=== PATIENT | female | born 1940 | race Caucasian/White ===

== ENCOUNTER 2017-08-09 14:14 | Inpatient (IN) ==
[2017-08-09] MEDS ORDERED: Ipratropium/Albuterol Neb 3 ML IH ONE ×2 (14:21→17:04)
[2017-08-09] MEDS ORDERED: methylPREDNISolone 125 MG/2 ML VIAL IVP ONE (14:21)
--- NOTE | 2017-08-09 14:24 | Emergency Department Note ---
Disposition Clinical Impression: Acute exacerbation of chronic obstructive airways disease Volume overload Qualifiers: Hypervolemia type: unspecified Qualified Code(s): E87.70 - Fluid overload, unspecified Disposition: Admitted As Inpatient Condition: Fair Forms: ED Satisfaction Letter Time of Disposition: 16:52 SOB HPI - General Chief Complaint: ED Shortness of Breath/Dyspnea Stated Complaint: steph Time Seen by Provider: 08/09/17 14:18 Source: patient, EMS Mode of arrival: EMS Limitations: no limitations Nursing Notes Reviewed: Yes Vital Signs Reviewed: Yes - History of Present Illness 76-year-old with a history of COPD comes in with increasing shortness of breath. Patient also had increased lower extremity edema. She denies a history of CHF. Pulse ox was 89% on 2 L at home per squad. They turned her up to 3 L and on arrival here she is in the low 90s. And has significant bilateral lower extremity edema. Pt Subjective Complaint: shortness of breath Onset (ago): day(s) (Several) Severity: moderate Consistency/Duration: constant Improves with: nothing Worsens with: exertion Known history of: COPD Associated symptoms: Reports: fever. Denies: cough Treatment prior to arrival: none Cough present: Yes Cough Description: Involuntary Cough Frequency: Intermittent - Related Data Allergies Allergy/AdvReac Type Severity Reaction Status Date / Time No Known Allergies Allergy Verified 08/09/17 14:51 Constitutional: Denies: fever, chills, weakness, weight change Eyes: Denies: eye pain, eye discharge, vision change ENT ED: Denies: ear pain, throat pain, dental pain, hearing loss, epistaxis, congestion, dysphagia Cardiovascular: Denies: chest pain, palpitations, dyspnea on exertion, edema, syncope Respiratory: Reports: dyspnea, wheezes. Denies: cough, hemoptysis, stridor Gastrointestinal: Denies: abdominal pain, nausea, vomiting, diarrhea, constipation, hematemesis, melena, hematochezia Genitourinary: Denies: dysuria, frequency, hematuria, discharge Musculoskeletal: Denies: back pain, neck pain, arthralgia, myalgia Integumentary: Denies: rash, abrasion, lesions Neurological: Denies: headache, weakness, numbness, paresthesias, confusion, abnormal gait, vertigo Psychiatric: Denies: anxiety, depression, suicidal thoughts, homicidal thoughts , auditory hallucinations, visual hallucinations Endocrine: Denies: fatigue Hematological/Lymphatic: Denies: easy bleeding, easy bruising Allergic/Immunologic: Denies: facial swelling, urticaria Physical Exam - General Limitations: no limitations General appearance: alert, in no apparent distress - Head Head exam: atraumatic, normocephalic, normal inspection - Eye Eye exam: Present: normal appearance, PERRL, EOMI - ENT ENT exam: normal exam, normal oropharynx, mucous membranes moist - Neck Neck exam: Present: normal inspection, full ROM, trachea midline - Chest Chest inspection: Present: normal inspection, symmetric chest wall rise - Respiratory Respiratory exam: Present: accessory muscle use, prolonged expiratory phase - Cardiovascular Cardiovascular exam: Present: regular rate, normal rhythm, normal heart sounds - Abdominal Exam Abdominal exam: Present: soft, Non-Tender. Absent: tenderness, distention, guarding, rebound, rigidity - Extremities Exam Extremities exam: Present: pedal edema - Expanded Lower Extremity Exam Neurovascular/Tendon exam: Absent: motor deficit, sensory deficit, tendon deficit Gait: observed and normal - Back Exam Back exam: Present: normal inspection, full ROM. Absent: tenderness - Neurological Exam Neurological exam: Present: alert, oriented X3 - Psychiatric Psychiatric exam: Present: normal affect, normal mood - Skin Skin exam: Present: warm, dry, intact, normal color Course - Reevaluation(s) Reevaluation #1: 76-year-old with increasing lower extremity edema and increasing shortness of breath. A chest x-ray shows some blunting of the costophrenic angle no guillermo failure. Her BNP is elevated at 2300+ opponent was slightly +0.04 EKG shows no acute ST segment change. The patient does have a history COPD. Patient was given breathing treatments with some improvement in symptoms. Patient will be admitted for further evaluation and treatment. Time: 16:51 - Consultations Consultation #1: Discussed with , admit. Time: 16:51 Vital Signs Temperature 97.7 F 08/09/17 14:17 Pulse Rate 113 08/09/17 14:17 Respiratory Rate 16 08/09/17 14:17 Blood Pressure 123/94 08/09/17 14:17 O2 Sat by Pulse Oximetry 90 08/09/17 14:17 Temperature 97.7 F 08/09/17 14:17 Pulse Rate 102 08/09/17 15:56 Respiratory Rate 16 08/09/17 15:56 Blood Pressure 115/85 08/09/17 15:56 O2 Sat by Pulse Oximetry 94 08/09/17 15:56 Oxygen Delivery Oxygen Delivery Nasal Cannula Shortness of Breath/Dyspnea - Lab Data Result diagrams: 08/09/17 14:32 08/09/17 14:32 Lab Results 08/09/17 08/09/17 08/09/17 Range/Units 14:32 14:32 14:32 WBC 7.7 (4.3-11.1) K/mcL RBC 4.09 (3.82-4.97) M/mcL Hgb 13.0 (11.5-15.4) g/dL Hct 41.5 (35.3-44.9) % MCV 101.5 H (83.0-100.0) fL MCH 31.8 (28.0-33.3) pg MCHC 31.3 L (31.6-35.5) g/dL RDW 13.8 (11.5-14.5) % Plt Count 186 (140-400) K/mcL MPV 12.1 (9.4-12.4) fL Immature Gran % 0.4 (0-4) % Seg Neutrophils % 80.7 % Lymphocytes % 12.0 % Monocytes % 5.4 % Eosinophils % 1.2 % Basophils % 0.3 % Neutrophils # 6.3 (1.6-8.9) K/mcL Lymphocytes # 0.9 (0.6-4.6) K/mcL Monocytes # 0.4 (0.0-1.3) K/mcL Eosinophils # 0.1 (0.0-0.6) K/mcL Basophils # 0.0 (0.0-0.2) K/mcL Sodium 138 (136-145) mEq/L Potassium 3.9 (3.5-5.1) mEq/L Chloride 92 L (98-107) mEq/L Carbon Dioxide 39 H (23-29) mEq/L BUN 20 (8-23) mg/dL Creatinine 0.66 (0.60-1.20) mg/dL Est GFR ( Amer) > 60 (> 60) Est GFR (Non-Af Amer) > 60 (> 60) BUN/Creatinine Ratio 30 H (6-26) Glucose 120 H (70-105) mg/dL Calculated Osmolality 290 (280-300) Lactic Acid (0.5-2.2) mmol/L Calcium 10.0 (8.6-10.3) mg/dL Troponin I 0.04 H* (< 0.04) ng/mL B-Natriuretic Peptide 2349 H (Less than 100) pg/mL 08/09/17 Range/Units 14:39 WBC (4.3-11.1) K/mcL RBC (3.82-4.97) M/mcL Hgb (11.5-15.4) g/dL Hct (35.3-44.9) % MCV (83.0-100.0) fL MCH (28.0-33.3) pg MCHC (31.6-35.5) g/dL RDW (11.5-14.5) % Plt Count (140-400) K/mcL MPV (9.4-12.4) fL Immature Gran % (0-4) % Seg Neutrophils % % Lymphocytes % % Monocytes % % Eosinophils % % Basophils % % Neutrophils # (1.6-8.9) K/mcL Lymphocytes # (0.6-4.6) K/mcL Monocytes # (0.0-1.3) K/mcL Eosinophils # (0.0-0.6) K/mcL Basophils # (0.0-0.2) K/mcL Sodium (136-145) mEq/L Potassium (3.5-5.1) mEq/L Chloride (98-107) mEq/L Carbon Dioxide (23-29) mEq/L BUN (8-23) mg/dL Creatinine (0.60-1.20) mg/dL Est GFR ( Amer) (> 60) Est GFR (Non-Af Amer) (> 60) BUN/Creatinine Ratio (6-26) Glucose (70-105) mg/dL Calculated Osmolality (280-300) Lactic Acid 2.1 (0.5-2.2) mmol/L Calcium (8.6-10.3) mg/dL Troponin I (< 0.04) ng/mL B-Natriuretic Peptide (Less than 100) pg/mL - EKG Data EKG attestation: Yes I reviewed and interpreted this EKG. EKG shows normal: Reports: sinus rhythm Rate: Reports: tachycardia Rhythm: Reports: A.Fib Interpretation: Reports: other (New-onset atrial fibrillation)
[2017-08-09 14:59] LABS: Basophils % 0.3 %; Eosinophils # 0.1 K/mcL (0.0-0.6); Eosinophils % 1.2 %; Hematocrit 41.5 % (35.3-44.9); Immature Granulocytes % 0.4 % (0-4); Lymphocytes # 0.9 K/mcL (0.6-4.6); Mean Corpuscular HGB Conc 31.3 g/dL (31.6-35.5); Mean Corpuscular Hemoglobin 31.8 pg (28.0-33.3); Mean Corpuscular Volume 101.5 fL (83.0-100.0); Mean Platelet Volume 12.1 fL (9.4-12.4); Monocytes # 0.4 K/mcL (0.0-1.3); Monocytes % 5.4 %; Neutrophils # 6.3 K/mcL (1.6-8.9); Platelet Count 186 K/mcL (140-400); Red Blood Count 4.09 M/mcL (3.82-4.97); Red Cell Distribution Width 13.8 % (11.5-14.5); Segmented Neutrophils % 80.7 %
[2017-08-09 15:12] LABS: BUN/Creatinine Ratio 30 (6-26); Blood Urea Nitrogen 20 mg/dL (8-23); Carbon Dioxide 39 mEq/L (23-29); Chloride 92 mEq/L (98-107); Glucose 120 mg/dL (70-105); Osmolality,Calculated 290 (280-300); Potassium 3.9 mEq/L (3.5-5.1); Sodium 138 mEq/L (136-145); eGFR For African Americans > 60 (> 60); eGFR For Non-African Americans > 60 (> 60)
[2017-08-09 15:18] LABS: Troponin I 0.04 ng/mL (< 0.04)
[2017-08-09] MEDS ORDERED: Furosemide 40 MG/4 ML VIAL IVP ONE (16:47)
[2017-08-09] MEDS ORDERED: Albuterol 2.5 MG/3 ML NEBULIZER ONE (17:05)
--- NOTE | 2017-08-09 17:10 | Internal Med History&Physical ---
Date of Encounter: 08/09/17 Time of Encounter: 17:04 Internal Medicine - H&P: HPI Chief complaint: SOB Admitted From: Home Plans for Post Hospital Care: Home History of present illness: Ms. Munoz is a 76 year old female who has COPD anxiety on 2 L nasal cannula at home presenting emergency room for worsening shortness of breath and bilateral lower extremity edema for 1 week. Patient reported that she noticed the bilateral extremity swelling a week ago, progressively got worse, and increased shortness of breath at night. At night she is unable to lie flat. She denies cough, no chest pain. Denies fever or chills. In the emergency room she was found hypoxic and required 3 L nasal cannula oxygen saturation 90%. Chest x- ray shows no pneumonia, CO2 is elevated 29. PE she has bilateral crackles and wheezing. If severe bilateral lower extremity edema. Normal WBC, BNP 2349, troponin 0.04. Patient is going to be admitted for acute COPD exacerbation, possible CHF exacerbation. We will give antibiotics IV steroids and Lasix check echocardiogram Doppler for DVT Past Med Surg Social Fam HX - Past Medical History Medical history: COPD Psychiatric history: no psych history - Social History Smoking Status: Former smoker Smokeless Tobacco Status: No Alcohol use: none Drug use: none Internal Medicine - H&P: Meds Albuterol Sulfate [Ventolin Hfa] 2 puff IH Q4H PRN 08/09/17 [History] Aspirin [Lo-Dose Aspirin EC] 81 mg PO DAILY 08/09/17 [History] Ipratropium/Albuterol Neb [Duoneb] 3 ml IH Q6HR 08/09/17 [History] Sertraline [Zoloft] 25 mg PO DAILY 08/09/17 [History] amLODIPine [Norvasc] 5 mg PO DAILY 08/09/17 [History] hydroCHLOROthiazide [Hydrochlorothiazide] 25 mg PO DAILY 08/09/17 [History] 3 Allergy/AdvReac Type Severity Reaction Status Date / Time codeine Allergy Vomiting Verified 08/09/17 17:03 All Systems PM: A 10-system review of systems was performed and is negative for pertinent findings except as documented above in the HPI. - Constitutional Vitals: Temp Pulse Resp BP Pulse Ox 97.7 F 102 16 115/85 94 08/09/17 14:17 08/09/17 15:56 08/09/17 15:56 08/09/17 15:56 08/09/17 15:56 General appearance: Present: mild distress, A&O X 3 Exam: CONSTITUTIONAL: Patient appears as an age appropriate female well developed, in no acute distress. EYES Clear sclerae, bilateral pupils are equal, reactive to light and accommodation. Extraocular movements are intact RESPIRATORY: No accessory muscle use, bilateral wheezing, and crackles/rales. CARDIOVASCULAR: Regular heart rate, normal S1 and S2, no murmurs GASTROINTESTINAL: bowel sounds present, soft, no tenderness. No hepatosplenomegaly. No bilateral CVA tenderness MUSCULOSKELETAL: Joints in normal range of motion, no clubbing, +++edema, no cyanosis. Bilateral peripheral pulses 2+ LYMPHATIC no lymphadenopathy in neck, groin and axilla bilaterally, no thyromegaly. NEUROLOGIC: CN II to XII are grossly intact, no focal neurological deficit. Deep tendon reflexes 2+ bilaterally. Normal light touch sensation to upper and lower extremity PSYCHIATRIC: Oriented x3, with good insight, mood is euthymic. No hallucinations or delusions. SKIN: Skin warm and dry, no rashes, no open wound. Internal Med - H&P Results - Labs CBC & Chem 7: 08/09/17 14:32 08/09/17 14:32 Labs: Short CBC 08/09/17 Range/Units 14:32 WBC 7.7 (4.3-11.1) K/mcL Hgb 13.0 (11.5-15.4) g/dL Hct 41.5 (35.3-44.9) % Plt Count 186 (140-400) K/mcL Neutrophils # 6.3 (1.6-8.9) K/mcL BMP 08/09/17 14:32 Sodium 138 Potassium 3.9 Chloride 92 L Carbon Dioxide 39 H BUN 20 Creatinine 0.66 Glucose 120 H Calcium 10.0 Cardiac Enzymes 08/09/17 Range/Units 14:32 Troponin I 0.04 H* (< 0.04) ng/mL - Impressions ITS Impressions Chest X-Ray 08/09/17 14:21 IMPRESSION: Unchanged chest, chronic blunting of the right CP angle with COPD. D/ / 08/09/2017 14:57:56 Niko Berg MD / [email or web address] Interpreting Provider: Niko Berg MD - Assessment and plan (1) Acute exacerbation of chronic obstructive airways disease Current Visit: Yes Status: Acute Assessment and plan: Patient has history of COPD, on 2 L nasal cannula continuously. She has diffusing bilateral wheezing, increased oxygen requirement. Acute on chronic hypoxic respiratory failure from COPD exacerbation IV Solu-Medrol, and azithromycin, nebulizer scheduled. (2) CHF (congestive heart failure) Current Visit: Yes Status: Acute Assessment and plan: Likely acute on chronic diastolic dysfunction CHF. We will check echocardiogram , duplex to rule out a DVT due to significant bilateral lower extremity edema We will give IV Lasix Qualifiers: Heart failure type: diastolic Heart failure chronicity: acute Qualified Code(s): I50.31 - Acute diastolic (congestive) heart failure (3) Elevated troponin Current Visit: Yes Status: Acute Assessment and plan: Mild troponin elevation, without chest pain. No EKG changes. Will follow-up serous troponin likely demand ischemia - Time Spent With Patient Total time spent is greater than 50% in coordination of care (as documented) at patient's floor/unit and/or counseling patient: Greater than 35 minutes
[2017-08-09] MEDS ORDERED: Naloxone 0.4 MG/ML INJ IVP PRN (17:19)
[2017-08-09] MEDS ORDERED: Azithromycin 250 MG TABLET PO SCH (17:30)
[2017-08-09] MEDS ORDERED: ALPRAZolam 0.25 MG TABLET PO ONE (18:52)
[2017-08-09] MEDS: Ipratropium/Albuterol Neb 3 ML IH SCH (19:39)
[2017-08-10] MEDS: MethylPREDNISolone 40 MG/ML VIAL IVP SCH ×2 (00:04→08:57)
[2017-08-10] MEDS: Ipratropium/Albuterol Neb 3 ML IH SCH (00:27)
[2017-08-10 01:05] LABS: Basophils % 0.2 %; Eosinophils % 0.4 %; Hematocrit 38.6 % (35.3-44.9); Immature Granulocytes % 0.4 % (0-4); Lymphocytes # 0.3 K/mcL (0.6-4.6); Lymphocytes % 6.9 %; Mean Corpuscular HGB Conc 31.1 g/dL (31.6-35.5); Mean Corpuscular Hemoglobin 31.3 pg (28.0-33.3); Mean Corpuscular Volume 100.5 fL (83.0-100.0); Mean Platelet Volume 12.1 fL (9.4-12.4); Monocytes # 0.1 K/mcL (0.0-1.3); Monocytes % 1.3 %; Neutrophils # 4.4 K/mcL (1.6-8.9); Platelet Count 160 K/mcL (140-400); Red Blood Count 3.84 M/mcL (3.82-4.97); Red Cell Distribution Width 13.7 % (11.5-14.5); Segmented Neutrophils % 90.8 %
[2017-08-10 01:24] LABS: Chol/HDL Ratio 3.2 (0-4.9); Magnesium 1.8 mg/dL (1.6-2.6)
[2017-08-10] MEDS ORDERED: *HR* Enoxaparin 60 MG/0.6 ML SYRINGE SQ STA (03:06)
[2017-08-10] MEDS ORDERED: ALPRAZolam 0.25 MG TABLET PO ONE (03:08)
--- NOTE | 2017-08-10 03:13 | Event Note ---
Date of Encounter: 08/10/17 Time of Encounter: 03:00 Pt developped A Fib RVR with HR 130s-150s. Pt denies chest pain. EKG shows A Fib RVR. Pt sates she has no hx of A Fib. - Start Cardizem drip. - Lovenox 1mg/kg sc once. - Consult cardio for further recommendations.
[2017-08-10] MEDS: Levalbuterol Neb 1.25 MG/3 ML IH SCH ×2 (03:57→10:50)
[2017-08-10] MEDS: Furosemide 20 MG/2 ML VIAL IVP SCH ×2 (08:57→17:34)
[2017-08-10] MEDS: Aspirin Enteric Coated 81 MG Tablet PO SCH (08:57)
--- NOTE | 2017-08-10 08:57 | Cardiology Consult Note ---
Date of Encounter: 08/10/17 Time of Encounter: 08:55 Assessment and Plan (1) New onset a-fib Current Visit: Yes Status: Acute Plan to transfer IV cardizem to oral rate control medications. Closely monitor blood pressure with medication changes. Patient CHADVASC score 4. Patient's last fall was 2 years ago. Due to CHADVASC score we would plan to start patient on oral anticoagulation. Patient agrees to this . (2) Elevated troponin Current Visit: Yes Status: Acute Most likely demand ischemia Discussion w patient/family: The assessment and plan as outlined above was discussed with the patient and/or family members who expressed understanding and agreement. All questions were answered. Thank you for involving us in the care of your patient. Please call with any questions. History of Present Illness Consult date: 08/10/17 Consult reason: New Onset Afib History of present illness: Ms. Munoz is a 76 year old female with significant PMHx of COPD on chronic O2 2L NC at home who was admitted for CHF and COPD. Patient denies any cardiac history. Patient denies chest pain, pressure, or palpitations. When patient was admitted overnight she was found to be in new onset Afib. Cardizem drip was started and one dose of lovenox given. Patient does disclose high fall risk at home. Denies any hematuria, hematochezia, or hematemesis. Past Med Surg Social Fam HX - Past Medical History Attestation: Yes The following information was validated with the patient. Medical history: COPD, hypertension Psychiatric history: anxiety - Social History Smoking Status: Former smoker Smokeless Tobacco Status: No Alcohol use: none Drug use: none - Family History Mother Hx Family Cardiac Disorders: Yes Medications and Allergies Albuterol Sulfate [Ventolin Hfa] 2 puff IH Q4H PRN 08/09/17 [History] Aspirin [Lo-Dose Aspirin EC] 81 mg PO DAILY 08/09/17 [History] Ipratropium/Albuterol Neb [Duoneb] 3 ml IH Q6HR 08/09/17 [History] Sertraline [Zoloft] 25 mg PO DAILY 08/09/17 [History] amLODIPine [Norvasc] 5 mg PO DAILY 08/09/17 [History] hydroCHLOROthiazide [Hydrochlorothiazide] 25 mg PO DAILY 08/09/17 [History] 3 Allergy/AdvReac Type Severity Reaction Status Date / Time codeine Allergy Vomiting Verified 08/09/17 17:03 All Systems Review: The remainder of the systems were reviewed and are negative - Constitutional Constitutional: frequent falls, no fever(s) - EENT Eyes: no blurred vision, no loss of vision - Cardiovascular Cardiovascular: as per HPI - Respiratory Respiratory: cough, dyspnea, no hemoptysis - Gastrointestinal Gastrointestinal: no abdominal pain, no hematemesis, no hematochezia - Genitourinary Genitourinary: no hematuria - Integumentary Integumentary: no rash - Neurological Neurological: no abnormal speech, no focal weakness Physical Examination Vital Signs, Last 4 Hours Temp Pulse Resp BP Pulse Ox 08/10/17 06:59 98.4 F 87 18 102/58 100 General: Conversant, No Apparent Distress HEENT: Atraumatic, Normocephaly, Mucus Membranes Moist Neck: No JVD, Normal carotid pulses Cardiac: Other (irregular rhythm, regular rate) Lungs: Other (coarse breath sounds throughout) Neuro: Alert and responsive, No focal deficits noted Abdomen: Soft, Non-Tender Skin: No rashes noted on visualized skin Musculoskeletal: No Chest Wall Tenderness Extremities: No Edema (bilteral lower extremity edema), Normal Pulses Results 08/10/17 00:32 08/09/17 14:32 Lab Results 08/09/17 08/10/17 08/10/17 17:51 00:32 00:32 WBC 4.8 Hgb 12.0 Hct 38.6 Plt Count 160 Magnesium Troponin I 0.05 H* 0.05 H* B-Natriuretic Peptide 08/10/17 08/10/17 08/10/17 00:32 00:32 05:24 WBC Hgb Hct Plt Count Magnesium 1.8 Troponin I 0.04 H* B-Natriuretic Peptide 2170 H Consult Discharge Plan - Plan Referrals: Steven Ohara DO [Primary Care Provider] -
[2017-08-10] MEDS ORDERED: hydroCHLOROthiazide 25 MG TABLET PO SCH (09:00)
[2017-08-10] MEDS ORDERED: amLODIPine 5 MG TABLET PO SCH (09:00)
--- NOTE | 2017-08-10 10:20 | Electrocardiograph Report ---
[place] [address] Test Date: 2017-08-09 Pat Name: Giulia Munoz Department: 103 Room: [facility] Gender: F [employer]: : 1940 Requested By: Ford Wheeler Order Number: [id number] Reading MD: Shivani Figueroa Measurements Intervals [place] Rate: 99 P: 56 CT: 130 QRS: 14 QRSD: 89 T: 108 QT: 299 QTc: 355 Interpretive Statements ARTIFACT LIMITS INTERPRETATION PROBABLE SINUS RHYTHM Electronically Signed On 08-10-2017 10:18:25 EDT by Shivani Figueroa
[2017-08-10 10:51] LABS: Bilirubin,Urine Negative (Negative); Blood,Urine Negative (Negative); Clarity,Urine Clear (Clear); Color,Urine Yellow (Yellow); Glucose,Urine (UA) Normal (Normal); Ketones,Urine Negative (Negative); Leukocyte Esterase,Urine Negative (Negative); Nitrite,Urine Negative (Negative); Protein,Urine Negative (Neg-Trace); Specific Gravity,Urine 1.016 (1.010-1.025); Urobilinogen,Urine Normal (Normal)
[2017-08-10] MEDS ORDERED: Diltiazem CD (24hr) 120 MG CAPSULE PO SCH (11:45)
--- NOTE | 2017-08-10 11:58 | Internal Med Progress Note ---
Date of Encounter: 08/10/17 Time of Encounter: 11:30 - Assessment and plan (1) Chronic respiratory failure with hypoxia Current Visit: Yes Status: Acute (2) CHF (congestive heart failure) Current Visit: Yes Status: Acute Assessment and plan: Likely as dictated by uncontrolled ventricular rate in the context of atrial fibrillation. Likely triggered by underlying COPD. Plan #1 echo is pending #2 control ventricular rate with Cardizem. Started oral Cardizem. #3 Lasix 20 mg IV twice a day as she is Lasix naive. Monitor and adjust for intake and output, daily weights. Qualifiers: Heart failure type: unspecified Heart failure chronicity: acute Qualified Code(s): I50.9 - Heart failure, unspecified (3) Elevated troponin Current Visit: Yes Status: Acute Assessment and plan: Demand ischemia from rapid ventricular rate. We will trend. Meanwhile she is on aspirin. (4) New onset a-fib Current Visit: Yes Status: Acute Assessment and plan: Plan #1 rate control with Cardizem #2 Xarelto frantically correlation #3 echo is pending (5) Severe chronic obstructive pulmonary disease Current Visit: Yes Status: Acute Assessment and plan: Plan #1 start Spiriva, Symbicort and albuterol as needed #2 pulmonary function testing and walk test outpatient. #3 supplemental oxygen as needed #4. Stop Steroids as she is not in COPD exacerbation - Time Spent With Patient Total time spent is greater than 50% in coordination of care (as documented) at patient's floor/unit and/or counseling patient: 25 - 35 minutes - Subjective Interval history: She reports lower extremity edema and shortness of breath. No cough. No events overnight. - Constitutional Vitals: Temp Pulse Resp BP Pulse Ox 98.4 F 87 18 102/58 100 08/10/17 06:59 08/10/17 06:59 08/10/17 06:59 08/10/17 06:59 08/10/17 06:59 General appearance: Present: mild distress, A&O X 3 Exam: Physical exam Gen: Comfortable, laying in bed, in no visible distress HEENT: Normocephalic, atraumatic. No conjunctival icterus. Moist oral mucosa. Neck: Supple Lungs: Diminished breath sounds Heart: Normal S1-S2, no murmurs rubs or gallops Abdomen: Normoactive bowel sounds, no guarding rigidity or tenderness Extremities: 1+ edema of lower extremities. No clubbing or cyanosis Neuro: Alert oriented 3, no focal deficits Skin: No skin lesions Internal Medicine: Result - Labs CBC & Chem 7: 08/10/17 00:32 08/09/17 14:32 Labs: Short CBC 08/09/17 08/10/17 08/10/17 Range/Units 17:51 00:32 00:32 WBC 4.8 (4.3-11.1) K/mcL RBC 3.84 (3.82-4.97) M/mcL Hgb 12.0 (11.5-15.4) g/dL Hct 38.6 (35.3-44.9) % MCV 100.5 H (83.0-100.0) fL MCH 31.3 (28.0-33.3) pg MCHC 31.1 L (31.6-35.5) g/dL RDW 13.7 (11.5-14.5) % Plt Count 160 (140-400) K/mcL MPV 12.1 (9.4-12.4) fL Immature Gran % 0.4 (0-4) % Seg Neutrophils % 90.8 % Lymphocytes % 6.9 % Monocytes % 1.3 % Eosinophils % 0.4 % Basophils % 0.2 % Neutrophils # 4.4 (1.6-8.9) K/mcL Lymphocytes # 0.3 L (0.6-4.6) K/mcL Monocytes # 0.1 (0.0-1.3) K/mcL Eosinophils # 0.0 (0.0-0.6) K/mcL Basophils # 0.0 (0.0-0.2) K/mcL Magnesium (1.6-2.6) mg/dL Troponin I 0.05 H* 0.05 H* (< 0.04) ng/mL B-Natriuretic Peptide (Less than 100) pg/mL Triglycerides (< 150) mg/dL Cholesterol (< 200) mg/dL LDL Cholesterol, Calc (0-99) mg/dL VLDL Cholesterol, Calc (< 31) mg/dL HDL Cholesterol (40-59) mg/dL Cholesterol/HDL Ratio (0-4.9) Urine Color (Yellow) Urine Clarity (Clear) Urine pH (5.0-8.0) pH Units Ur Specific [place] (1.010-1.025) Urine Protein (Neg-Trace) mg/dL Urine Glucose (UA) (Normal) mg/dL Urine Ketones (Negative) mg/dL Urine Blood (Negative) Urine Nitrite (Negative) Urine Bilirubin (Negative) Urine Urobilinogen (Normal) mg/dL Ur Leukocyte Esterase (Negative) 08/10/17 08/10/17 08/10/17 Range/Units 00:32 00:32 05:24 WBC (4.3-11.1) K/mcL RBC (3.82-4.97) M/mcL Hgb (11.5-15.4) g/dL Hct (35.3-44.9) % MCV (83.0-100.0) fL MCH (28.0-33.3) pg MCHC (31.6-35.5) g/dL RDW (11.5-14.5) % Plt Count (140-400) K/mcL MPV (9.4-12.4) fL Immature Gran % (0-4) % Seg Neutrophils % % Lymphocytes % % Monocytes % % Eosinophils % % Basophils % % Neutrophils # (1.6-8.9) K/mcL Lymphocytes # (0.6-4.6) K/mcL Monocytes # (0.0-1.3) K/mcL Eosinophils # (0.0-0.6) K/mcL Basophils # (0.0-0.2) K/mcL Magnesium 1.8 (1.6-2.6) mg/dL Troponin I 0.04 H* (< 0.04) ng/mL B-Natriuretic Peptide 2170 H (Less than 100) pg/mL Triglycerides 47 (< 150) mg/dL Cholesterol 139 (< 200) mg/dL LDL Cholesterol, Calc 87 (0-99) mg/dL VLDL Cholesterol, Calc 9 (< 31) mg/dL HDL Cholesterol 43 (40-59) mg/dL Cholesterol/HDL Ratio 3.2 (0-4.9) Urine Color (Yellow) Urine Clarity (Clear) Urine pH (5.0-8.0) pH Units Ur Specific [place] (1.010-1.025) Urine Protein (Neg-Trace) mg/dL Urine Glucose (UA) (Normal) mg/dL Urine Ketones (Negative) mg/dL Urine Blood (Negative) Urine Nitrite (Negative) Urine Bilirubin (Negative) Urine Urobilinogen (Normal) mg/dL Ur Leukocyte Esterase (Negative) 08/10/17 Range/Units 10:40 WBC (4.3-11.1) K/mcL RBC (3.82-4.97) M/mcL Hgb (11.5-15.4) g/dL Hct (35.3-44.9) % MCV (83.0-100.0) fL MCH (28.0-33.3) pg MCHC (31.6-35.5) g/dL RDW (11.5-14.5) % Plt Count (140-400) K/mcL MPV (9.4-12.4) fL Immature Gran % (0-4) % Seg Neutrophils % % Lymphocytes % % Monocytes % % Eosinophils % % Basophils % % Neutrophils # (1.6-8.9) K/mcL Lymphocytes # (0.6-4.6) K/mcL Monocytes # (0.0-1.3) K/mcL Eosinophils # (0.0-0.6) K/mcL Basophils # (0.0-0.2) K/mcL Magnesium (1.6-2.6) mg/dL Troponin I (< 0.04) ng/mL B-Natriuretic Peptide (Less than 100) pg/mL Triglycerides (< 150) mg/dL Cholesterol (< 200) mg/dL LDL Cholesterol, Calc (0-99) mg/dL VLDL Cholesterol, Calc (< 31) mg/dL HDL Cholesterol (40-59) mg/dL Cholesterol/HDL Ratio (0-4.9) Urine Color Yellow (Yellow) Urine Clarity Clear (Clear) Urine pH 6.0 (5.0-8.0) pH Units Ur Specific [place] 1.016 (1.010-1.025) Urine Protein Negative (Neg-Trace) mg/dL Urine Glucose (UA) Normal (Normal) mg/dL Urine Ketones Negative (Negative) mg/dL Urine Blood Negative (Negative) Urine Nitrite Negative (Negative) Urine Bilirubin Negative (Negative) Urine Urobilinogen Normal (Normal) mg/dL Ur Leukocyte Esterase Negative (Negative) Cardiac Enzymes 08/09/17 08/10/17 08/10/17 Range/Units 17:51 00:32 05:24 Troponin I 0.05 H* 0.05 H* 0.04 H* (< 0.04) ng/mL Urine 08/10/17 Range/Units 10:40 Urine Color Yellow (Yellow) Urine Clarity Clear (Clear) Urine pH 6.0 (5.0-8.0) pH Units Ur Specific [place] 1.016 (1.010-1.025) Urine Protein Negative (Neg-Trace) mg/dL Urine Glucose (UA) Normal (Normal) mg/dL Consult Discharge Plan - Plan Referrals: Steven Ohara DO [Primary Care Provider] -
[2017-08-10] MEDS: Budesonide/Formoterol 160/4.5 MDI IH SCH ×2 (13:59→20:02)
[2017-08-10] MEDS: Tiotropium 18 MCG inhalation IH SCH (13:59)
[2017-08-10 16:16] LABS: INR 1.4; Prothrombin Time 15.2 Seconds (9.4-12.1)
--- NOTE | 2017-08-10 16:19 | Electrocardiograph Report ---
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
[2017-08-10] MEDS ORDERED: *HR* Rivaroxaban 15 MG TABLET PO SCH (17:00)
[2017-08-10] MEDS ORDERED: Warfarin perPT PO PRN (18:00)
[2017-08-10] MEDS ORDERED: *HR* Warfarin 5 MG TABLET PO ONE (18:31)
[2017-08-11 03:25] LABS: Basophils % 0.1 %; Hematocrit 35.2 % (35.3-44.9); Immature Granulocytes % 0.4 % (0-4); Lymphocytes # 1.1 K/mcL (0.6-4.6); Lymphocytes % 11.2 %; Mean Corpuscular HGB Conc 31.3 g/dL (31.6-35.5); Mean Corpuscular Hemoglobin 31.8 pg (28.0-33.3); Mean Corpuscular Volume 101.7 fL (83.0-100.0); Mean Platelet Volume 11.5 fL (9.4-12.4); Monocytes # 0.7 K/mcL (0.0-1.3); Monocytes % 7.3 %; Platelet Count 161 K/mcL (140-400); Red Blood Count 3.46 M/mcL (3.82-4.97)
[2017-08-11 03:34] LABS: INR 1.3; Prothrombin Time 14.3 Seconds (9.4-12.1)
[2017-08-11 03:55] LABS: BUN/Creatinine Ratio 36 (6-26); Blood Urea Nitrogen 24 mg/dL (8-23); Carbon Dioxide 43 mEq/L (23-29); Chloride 91 mEq/L (98-107); Glucose 111 mg/dL (70-105); Osmolality,Calculated 291 (280-300); Potassium 3.7 mEq/L (3.5-5.1); Sodium 138 mEq/L (136-145); eGFR For African Americans > 60 (> 60); eGFR For Non-African Americans > 60 (> 60)
[2017-08-11] MEDS: Budesonide/Formoterol 160/4.5 MDI IH SCH ×2 (08:11→21:02)
[2017-08-11] MEDS: Tiotropium 18 MCG inhalation IH SCH (08:11)
[2017-08-11 09:31] LABS: ABG Base Excess 14 mEq/L (-2 to 3); ABG HCO3 44 mEq/L (21-27); ABG Oxygen Saturation 93 % (95-98); ABG PCO2 84 mmHg (35-45); ABG PH 7.33 pH Units (7.32-7.45); ABG PO2 78 mmHg (85-104); ABG TCO2 47 mEq/L (20-26)
[2017-08-11] MEDS: Furosemide 20 MG/2 ML VIAL IVP SCH ×2 (09:31→16:45)
--- NOTE | 2017-08-11 10:33 | Internal Med Progress Note ---
<Jordy Barrera - Last Filed: 08/11/17 17:04> Date of Encounter: 08/11/17 Time of Encounter: 14:00 - Assessment and plan (1) Acute exacerbation of chronic obstructive airways disease Current Visit: Yes Status: Acute Assessment and plan: Patient decompensating with worsening hypercapnic respiratory failure despite BIPAP. She has history of COPD with concomitant CHF exacerbation on 2L O2 at home. ABG demonstrates pCO2 84-->121 in the last 4 hours. She requires closer monitoring of respiratory distress. Continue BIPAP as tolerated. Continue Duoneb, Solumedrol, diuresis. Spoke with Dr. Reis. Patient is transferred to ICU on BIPAP with close monitoring. (2) CHF (congestive heart failure) Current Visit: Yes Status: Acute Assessment and plan: uncontrolled ventricular rate in the context of new onset atrial fibrillation. Likely triggered by underlying COPD. Echo demonstrates LVEF = 35-40% with global LV systolic dysfunction, severe pulmonary hypertension, biarial enlargement. hypokinetic wall motion noted at multiple areas. Continue Lasix 20 mg IV twice a day as she is Lasix naive. Monitor and adjust for intake and output, daily weights. Qualifiers: Heart failure type: unspecified Heart failure chronicity: acute Qualified Code(s): I50.9 - Heart failure, unspecified (3) Elevated troponin Current Visit: Yes Status: Acute Assessment and plan: Demand ischemia from rapid ventricular rate. Continue on asa (4) New onset a-fib Current Visit: Yes Status: Acute Assessment and plan: Currently A fib with RVR. likely worsened by respiratory failure. Continue with cardizem drip and warfarin with goal INR of 2-3. LHC when stable (5) Severe chronic obstructive pulmonary disease Current Visit: Yes Status: Acute Assessment and plan: Continue Spiriva, Symbicort, albuterol, solu-medrol. Monitor closely. (6) Cardiomyopathy Current Visit: Yes Status: Acute Assessment and plan: Cardiomyopathy noted on TTE, LVEF 35-40%. Plan for LHC when stable. Qualifiers: Cardiomyopathy type: unspecified Qualified Code(s): I42.9 - Cardiomyopathy , unspecified (7) DVT prophylaxis Current Visit: Yes Status: Acute Assessment and plan: Anticoagulated with Coumadin. - Time Spent With Patient Total time spent is greater than 50% in coordination of care (as documented) at patient's floor/unit and/or counseling patient: - Subjective Interval history: Patient has worsening shortness of breath and declining mental status. Able to follow verbal commands and answer questions, but reports diffuse weakness, worsening lower extremity edema. She did well on BIPAP overnight, but decompensating this AM. Denies CP or abdominal pain. Poor appetite and overall worsening condition. - Constitutional Vitals: Temp Pulse Resp BP Pulse Ox 97.5 F L 89 25 160/91 93 08/11/17 05:29 08/11/17 07:00 08/11/17 09:25 08/11/17 10:09 08/11/17 09:25 General appearance: Present: cachectic, mild distress, A&O X 3 - Head Head exam: Present: atraumatic - Eye Eye exam: Present: EOMI, normal appearance - ENT ENT exam: Present: mucous membranes dry - Neck Neck exam general surgery: Present: full ROM, trachea midline - Respiratory Respiratory exam: Present: accessory muscle use, respiratory distress, rhonchi, wheezes Additional comments: labored breathing. - Cardiovascular Cardiovascular exam: Present: irregular rhythm - GI/Abdominal GI/Abdominal exam: Present: diminished bowel sounds, soft - Extremities Exam Extremities exam: Present: cyanotic, full ROM - Neurological Exam Neurological exam: Present: altered, oriented X3, no focal deficits Internal Medicine: Result - Labs CBC & Chem 7: 08/11/17 03:09 08/11/17 03:09 Labs: Short CBC 08/11/17 Range/Units 03:09 WBC 9.9 D (4.3-11.1) K/mcL Hgb 11.0 L (11.5-15.4) g/dL Hct 35.2 L (35.3-44.9) % Plt Count 161 (140-400) K/mcL Neutrophils # 8.0 (1.6-8.9) K/mcL BMP 08/11/17 03:09 Sodium 138 Potassium 3.7 Chloride 91 L Carbon Dioxide 43 H* BUN 24 H Creatinine 0.67 Glucose 111 H Calcium 9.0 Cardiac Enzymes 08/10/17 08/11/17 Range/Units 21:25 03:09 Troponin I 0.06 H* 0.07 H* (< 0.04) ng/mL - ABG Interpretation ABG results: ABG ABG pH 7.33 pH Units (7.32-7.45) 08/11/17 09:25 ABG pCO2 84 mmHg (35-45) H* 08/11/17 09:25 ABG pO2 78 mmHg (85-104) L 08/11/17 09:25 ABG O2 Saturation 93 % (95-98) L 08/11/17 09:25 PT/INR, D-dimer PT 14.3 Seconds (9.4-12.1) H 08/11/17 03:09 - Impressions Impressions Echocardiogram 08/10/17 17:23 Impressions: LVEF 35-40%. Global LV systolic dysfunction. Indeterminate diastolic function. Mildly dilated RV with low normal function. Bi-atrial enlargement. Moderate mitral regurgitation. Moderate tricuspid regurgitation. Severe pulmonary hypertension. Left Ventricular Wall Motion: Rest Echo Findings The apex, apical inferior, mid inferior, basal inferior, apical anterior, mid anterior, basal anterior, apical septal, mid inferior septal, basal inferior septal, apical lateral, mid anterior lateral, basal anterior lateral, mid anterior septal, mid inferior lateral, basal anterior septal and basal inferior lateral fournier were hypokinetic. Findings: Study Quality * Technically adequate exam. ECG Findings * Consider atrial tachycardia. Left Ventricle * LVEF 35-40%. * Indeterminate diastolic function. * Normal LV chamber size and wall thickness. Right Ventricle * Mildly dilated RV with low normal function. Left Atrium * Moderately dilated left atrium. Right Atrium * Severely dilated right atrium. Mitral Valve * Moderate mitral regurgitation. * Normal mitral valve structure. * No mitral stenosis. Aortic Valve * No aortic regurgitation. * Trileaflet aortic valve. * No aortic stenosis. Tricuspid Valve * Normal tricuspid valve structure. * Moderate tricuspid regurgitation. * Estimated RA pressure is 8 mmHg. * Estimated RVSP is 69 mmHg. * Severe pulmonary hypertension. Pulmonic Valve * Pulmonic valve is not well visualized. * No pulmonic stenosis. * No pulmonic regurgitation. Pulmonary Artery * Pulmonary artery not well visualized. Aorta * Normally sized aortic root. Pericardium * There is no pericardial effusion present. IVC * The IVC is not dilated. * < 50% respiratory change. Chest X-Ray 08/11/17 08:53 IMPRESSION: Chronic findings in the chest including emphysematous disease and vascular congestion. No evidence for edema or consolidation. Persistent blunting of the costophrenic angles favored to represent pleural thickening versus persistent small effusions. D/ / Arnold Venegas / Arnold Venegas Interpreting Provider: Arnold Venegas Consult Discharge Plan - Plan Referrals: Steven Ohara DO [Primary Care Provider] - 08/17/17 1:30 pm <Nabor Baig T - Last Filed: 08/11/17 20:35> Date of Encounter: 08/11/17 - Assessment and plan (1) Acute exacerbation of chronic obstructive airways disease Current Visit: Yes Status: Acute (2) CHF (congestive heart failure) Current Visit: Yes Status: Acute Qualifiers: Heart failure type: unspecified Heart failure chronicity: acute Qualified Code(s): I50.9 - Heart failure, unspecified (3) Elevated troponin Current Visit: Yes Status: Acute (4) New onset a-fib Current Visit: Yes Status: Acute (5) Severe chronic obstructive pulmonary disease Current Visit: Yes Status: Acute (6) Cardiomyopathy Current Visit: Yes Status: Acute Qualifiers: Cardiomyopathy type: unspecified Qualified Code(s): I42.9 - Cardiomyopathy , unspecified (7) DVT prophylaxis Current Visit: Yes Status: Acute - Time Spent With Patient Total time spent is greater than 50% in coordination of care (as documented) at patient's floor/unit and/or counseling patient: - Constitutional Vitals: Temp Pulse Resp BP Pulse Ox 97.6 F 103 14 126/86 90 08/11/17 16:15 08/11/17 20:00 08/11/17 20:00 08/11/17 20:00 08/11/17 20:00 Internal Medicine: Result - Labs CBC & Chem 7: 08/11/17 03:09 08/11/17 03:09 Labs: Short CBC 08/11/17 Range/Units 03:09 WBC 9.9 D (4.3-11.1) K/mcL Hgb 11.0 L (11.5-15.4) g/dL Hct 35.2 L (35.3-44.9) % Plt Count 161 (140-400) K/mcL Neutrophils # 8.0 (1.6-8.9) K/mcL BMP 08/11/17 03:09 Sodium 138 Potassium 3.7 Chloride 91 L Carbon Dioxide 43 H* BUN 24 H Creatinine 0.67 Glucose 111 H Calcium 9.0 Cardiac Enzymes 08/10/17 08/11/17 Range/Units 21:25 03:09 Troponin I 0.06 H* 0.07 H* (< 0.04) ng/mL - ABG Interpretation ABG results: ABG ABG pH 7.33 pH Units (7.32-7.45) 08/11/17 17:06 ABG pCO2 100 mmHg (35-45) H* D 08/11/17 17:06 ABG pO2 70 mmHg (85-104) L D 08/11/17 17:06 ABG O2 Saturation 91 % (95-98) L 08/11/17 17:06 PT/INR, D-dimer PT 14.3 Seconds (9.4-12.1) H 08/11/17 03:09 - Impressions Impressions Chest X-Ray 08/11/17 08:53 IMPRESSION: Chronic findings in the chest including emphysematous disease and vascular congestion. No evidence for edema or consolidation. Persistent blunting of the costophrenic angles favored to represent pleural thickening versus persistent small effusions. D/ / Arnold Venegas / Arnold Venegas Interpreting Provider: Arnold Venegas - Attending Attestation I independently saw and examined this patient on 08/11/17, discussed plan of care with patient's son at the bedside See my event note and resident physician's documentation for details
[2017-08-11] MEDS: MethylPREDNISolone 40 MG/ML VIAL IVP SCH ×2 (12:40→21:11)
[2017-08-11] MEDS: Aspirin Enteric Coated 81 MG Tablet PO SCH (12:43)
--- NOTE | 2017-08-11 12:54 | Cardiology Progress Note ---
Date of Encounter: 08/11/17 Time of Encounter: 12:52 Assessment and Plan (1) Cardiomyopathy Current Visit: Yes Status: Acute Cardiomyopathy noted on TTE, LVEF 35-40%. This could be tachycardia induced, significant CAD or other causes cannot be excluded. Ideally, we would consider a diagnostic cardiac catheterisation. However, patient's respiratory status currently would not allow us to safely perform diagnostic catheterization. Chest x-ray reviewed, findings consistent with emphysematous changes. Recommend continue to maximize pulmonary status for now. Patient states she would be agreeable to cardiac catheterization when able. Overall, her prognosis appears to be guarded. Further recommendations made throughout her hospital stay. Qualifiers: Cardiomyopathy type: unspecified Qualified Code(s): I42.9 - Cardiomyopathy , unspecified (2) New onset a-fib Current Visit: Yes Status: Acute Atrial fibrillation appears to be better rate controlled, but remains tachycardic. I suspect this is worsened by her respiratory insufficiency. Currently, she is requiring positive pressure ventilation. Recommend continue Cardizem drip for now until able to consistently take oral medications. Continue Coumadin with a goal INR of 2-3. Discussion w patient/family: The assessment and plan as outlined above was discussed with the patient and/or family members who expressed understanding and agreement. All questions were answered. Thank you for involving us in the care of your patient. Please call with any questions. Subjective Principal diagnosis: Respiratory insufficiency Interval history: Patient seen and examined. Overall, condition unchanged, slightly worsened compared to yesterday. Currently, she is on BiPAP. Continues to appear very frail. Objective Vital Signs, Last 4 Hours Pulse Resp BP Pulse Ox 08/11/17 11:58 23 152/102 90 08/11/17 11:00 108 24 152/93 90 08/11/17 10:09 160/91 08/11/17 09:25 25 120/70 93 General: Conversant, Other (Frail, ill-appearing) HEENT: Atraumatic, Normocephaly, Mucus Membranes Moist Neck: No JVD, Normal carotid pulses Cardiac: Other (Distant, irregular rate and rhythm.) Lungs: Other (Shallow breath sounds bilaterally.) Neuro: Alert and responsive, No focal deficits noted Abdomen: Soft, Non-Tender Skin: No rashes noted on visualized skin Musculoskeletal: No Chest Wall Tenderness Extremities: Other (Mild edema bilaterally.) Results 08/11/17 03:09 08/11/17 03:09 Lab Results 08/10/17 08/10/17 08/11/17 15:45 21:25 03:09 WBC 9.9 D Hgb 11.0 L Hct 35.2 L Plt Count 161 INR 1.4 Sodium Potassium Chloride Carbon Dioxide BUN Creatinine Glucose Calcium Magnesium Troponin I 0.06 H* 08/11/17 08/11/17 08/11/17 03:09 03:09 03:09 WBC Hgb Hct Plt Count INR 1.3 Sodium 138 Potassium 3.7 Chloride 91 L Carbon Dioxide 43 H* BUN 24 H Creatinine 0.67 Glucose 111 H Calcium 9.0 Magnesium 1.9 Troponin I 08/11/17 03:09 WBC Hgb Hct Plt Count INR Sodium Potassium Chloride Carbon Dioxide BUN Creatinine Glucose Calcium Magnesium Troponin I 0.07 H* - Imaging and Cardiology Chest Xray: report reviewed Echo: report reviewed Consult Discharge Plan - Plan Referrals: Steven Ohara DO [Primary Care Provider] - 08/17/17 1:30 pm
[2017-08-11] MEDS ORDERED: Furosemide 40 MG/4 ML VIAL IVP ONE (13:20)
[2017-08-11 13:21] LABS: ABG Base Excess 16 mEq/L (-2 to 3); ABG HCO3 49 mEq/L (21-27); ABG Oxygen Saturation 97 % (95-98); ABG PCO2 121 mmHg (35-45); ABG PH 7.22 pH Units (7.32-7.45); ABG PO2 116 mmHg (85-104); ABG TCO2 53 mEq/L (20-26); Blood Gas Modality CPAP/PS; Blood Gas PEEP 6 cm H2O; Blood Gas Pressure Support 12 cm H2O
--- NOTE | 2017-08-11 16:09 | Electrocardiograph Report ---
[address] [place], [place] [address] Test Date: 2017-08-09 Pat Name: Giulia Munoz Department: 103 Room: [facility] Gender: F [employer]: : 1940 Requested By: Mamadou Barrera Order Number: [id number] Reading MD: Sebastian Young Measurements Intervals Bracey Rate: 167 P: MI: 0 QRS: 33 QRSD: 81 T: 125 QT: 259 QTc: 350 Interpretive Statements ATRIAL FIBRILLATION WITH RAPID VENTRICULAR RESPONSE Electronically Signed On 08-11-2017 16:07:36 EDT by Sebastian Young
--- NOTE | 2017-08-11 16:16 | Pulmonology Consult Note ---
<Darwin Carr - Last Filed: 08/11/17 16:25> Date of Encounter: 08/11/17 Time of Encounter: 16:13 Assessment and Plan (1) Acute and chronic respiratory failure Current Visit: Yes Status: Acute Underlying history of COPD now with concomitant CHF exacerbation. Usually on 2 L nasal cannula at home. Hypercapnic respiratory failure with CO2 from 80 now to 120. Remains on bronchodilators, IV steroids and IV diuresis. Continue BiPAP as tolerated. Qualifiers: Respiratory failure complication: hypercapnia Qualified Code(s): J96.22 - Acute and chronic respiratory failure with hypercapnia (2) Acute exacerbation of chronic obstructive airways disease Current Visit: Yes Status: Acute History of underlying COPD with 2 L nasal cannula dependence. Continue bronchodilators. Continue IV Solu-Medrol. (3) CHF (congestive heart failure) Current Visit: Yes Status: Acute Patient presented volume overloaded with a BNP greater than 2000. Receiving Lasix 20 mg twice daily. Cardiology consulted and following. Echo with systolic dysfunction. Qualifiers: Heart failure type: unspecified Heart failure chronicity: acute Qualified Code(s): I50.9 - Heart failure, unspecified (4) New onset a-fib Current Visit: Yes Status: Acute New-onset atrial fibrillation with RVR. Cardiology consulted. Currently rate controlled with Cardizem drip. On Coumadin for anticoagulation. Echo 08/10/17 Impressions: LVEF 35-40%. Global LV systolic dysfunction. Indeterminate diastolic function. Mildly dilated RV with low normal function. Bi-atrial enlargement. Moderate mitral regurgitation. Moderate tricuspid regurgitation. Severe pulmonary hypertension. (5) Elevated troponin Current Visit: Yes Status: Acute In the setting of A. fib RVR. Cardiology consulted. Echo with ejection fraction 35-40%. (6) Cardiomyopathy Current Visit: Yes Status: Acute Echo demonstrating LVEF 35-40% with LV systolic dysfunction. Cardiology consulted. Qualifiers: Cardiomyopathy type: unspecified Qualified Code(s): I42.9 - Cardiomyopathy , unspecified (7) DVT prophylaxis Current Visit: Yes Status: Acute Anticoagulated with Coumadin. History of Present Illness Consult date: 08/11/17 Requesting physician: Nabor Baig Reason for consult: other (Respiratory failure) Chief complaint: Respiratory failure History of present illness: 76-year-old female history of COPD on 2 L nasal cannula at home who initially presented to the emergency department on 08/09/17 secondary to shortness of breath and bilateral lower extremity swelling. History is obtained from family at bedside as well as prior documentation as the patient is currently on BiPAP. Family reports that she has felt increasing shortness of breath as well as lower shimmy swelling over the past week in duration. Denies a prior history of this previously. She is on 2 L nasal cannula continuous at home and is able to function within her home without issue. No recent illnesses. No history of cardiac insults. Patient seen and evaluated in 2NE32 at the request of the hospitalist given respiratory failure. Concern that she was on BiPAP overnight and had a worsening hypercapnic respiratory failure today. PCO2 head elevated from 80- 120. Patient examined at bedside. She is alert to voice. Follows commands. Appears to be in moderate respiratory distress. Changes were made to her BiPAP with improved tidal volume. Discussed with the patient as well as family about transferring to the ICU. They are in agreement with this plan and the patient also reports that she would be fine with intubation should she require it. Reviewed the patient's hospitalization demonstrating new onset atrial fibrillation for which cardiology was consulted. She is currently on a Cardizem drip for rate control as well as Coumadin for anticoagulation. Past Med Surg Social Fam HX - Past Medical History Attestation: Yes The following information was validated with the patient. Source: old records reviewed, obtained from family Medical history: COPD, hypertension Psychiatric history: anxiety - Social History Smoking Status: Former smoker Smokeless Tobacco Status: No Alcohol use: none Drug use: none - Family History Mother Hx Family Cardiac Disorders: Yes Medications and Allergies Albuterol Sulfate [Ventolin Hfa] 2 puff IH Q4H PRN 08/09/17 [History] Aspirin [Lo-Dose Aspirin EC] 81 mg PO DAILY 08/09/17 [History] Ipratropium/Albuterol Neb [Duoneb] 3 ml IH Q6HR 08/09/17 [History] Sertraline [Zoloft] 25 mg PO DAILY 08/09/17 [History] amLODIPine [Norvasc] 5 mg PO DAILY 08/09/17 [History] hydroCHLOROthiazide [Hydrochlorothiazide] 25 mg PO DAILY 08/09/17 [History] 3 Allergy/AdvReac Type Severity Reaction Status Date / Time codeine Allergy Vomiting Verified 08/09/17 17:03 All Systems: The remainder of the systems were reviewed and are negative - Constitutional Constitutional: as per HPI - EENT Eyes: as per HPI Ears: as per HPI Nose, mouth and throat: as per HPI - Cardiovascular Cardiovascular: as per HPI - Respiratory Respiratory: as per HPI - Gastrointestinal Gastrointestinal: as per HPI - Genitourinary Genitourinary: as per HPI - Integumentary Integumentary: as per HPI - Neurological Neurological: as per HPI - Psychiatric Psychiatric: as per HPI - Endocrine Endocrine: as per HPI - Hematologic/Lymphatic Hematologic/Lymphatic: as per HPI - Allergic/Immunologic Allergic/Immunologic: as per HPI Physical Examination General appearance: other (Moderate respiratory distress) Eyes: nonicteric ENT: other (Wearing BiPAP) Effort: mildly labored Auscultation: bilateral: diminished breath sounds Cardiovascular: irregular rhythm Gastrointestinal: soft, tender, non-distended Integumentary: normal Extremities: no cyanosis, edema (Mild 1+ bilateral lower extremity) Musculoskeletal: no deformities normal mental status Results - Laboratory Findings CBC and BMP: 08/11/17 03:09 08/11/17 03:09 ABG ABG pH 7.22 pH Units (7.32-7.45) L 08/11/17 13:08 ABG pCO2 121 mmHg (35-45) H* D 08/11/17 13:08 ABG pO2 116 mmHg (85-104) H 08/11/17 13:08 ABG O2 Saturation 97 % (95-98) 08/11/17 13:08 PT/INR, D-dimer PT 14.3 Seconds (9.4-12.1) H 08/11/17 03:09 Abnormal lab findings: Abnormal lab results RBC 3.46 M/mcL (3.82-4.97) L 08/11/17 03:09 Hgb 11.0 g/dL (11.5-15.4) L 08/11/17 03:09 Hct 35.2 % (35.3-44.9) L 08/11/17 03:09 MCV 101.7 fL (83.0-100.0) H 08/11/17 03:09 MCHC 31.3 g/dL (31.6-35.5) L 08/11/17 03:09 PT 14.3 Seconds (9.4-12.1) H 08/11/17 03:09 ABG pH 7.22 pH Units (7.32-7.45) L 08/11/17 13:08 ABG pCO2 121 mmHg (35-45) H* D 08/11/17 13:08 ABG pO2 116 mmHg (85-104) H 08/11/17 13:08 ABG HCO3 49 mEq/L (21-27) H 08/11/17 13:08 ABG Total CO2 53 mEq/L (20-26) H 08/11/17 13:08 ABG Base Excess 16 mEq/L (-2 to 3) H 08/11/17 13:08 Chloride 91 mEq/L (98-107) L 08/11/17 03:09 Carbon Dioxide 43 mEq/L (23-29) H* 08/11/17 03:09 BUN 24 mg/dL (8-23) H 08/11/17 03:09 BUN/Creatinine Ratio 36 (6-26) H 08/11/17 03:09 Glucose 111 mg/dL (70-105) H 08/11/17 03:09 Troponin I 0.07 ng/mL (< 0.04) H* 08/11/17 03:09 B-Natriuretic Peptide 2170 pg/mL (Less than 100) H 08/10/17 00:32 - Clinical Findings Intake & Output: Intake & Output 08/11/17 08/11/17 08/11/17 07:59 15:59 23:59 Intake Total 0 / 0 147.5 / 147.5 Output Total 0 / 0 Balance 0 / 0 147.5 / 147.5 Weight 52.1 kg Consult Discharge Plan - Plan Referrals: Steven Ohara DO [Primary Care Provider] - 08/17/17 1:30 pm <Dallas Reis - Last Filed: 08/11/17 23:24> Date of Encounter: 08/11/17 All Systems: The remainder of the systems were reviewed and are negative Physical Examination Vital Signs: Vital Signs, Last 4 Hours Pulse Resp BP Pulse Ox 08/11/17 22:00 92 24 125/69 94 08/11/17 21:06 17 112/76 93 08/11/17 21:00 90 18 112/76 94 08/11/17 20:00 103 14 126/86 90 08/11/17 19:30 92 14 123/92 92 Results - Laboratory Findings CBC and BMP: 08/11/17 03:09 08/11/17 03:09 ABG ABG pH 7.33 pH Units (7.32-7.45) 08/11/17 17:06 ABG pCO2 100 mmHg (35-45) H* D 08/11/17 17:06 ABG pO2 70 mmHg (85-104) L D 08/11/17 17:06 ABG O2 Saturation 91 % (95-98) L 08/11/17 17:06 PT/INR, D-dimer PT 14.3 Seconds (9.4-12.1) H 08/11/17 03:09 Abnormal lab findings: Abnormal lab results RBC 3.46 M/mcL (3.82-4.97) L 08/11/17 03:09 Hgb 11.0 g/dL (11.5-15.4) L 08/11/17 03:09 Hct 35.2 % (35.3-44.9) L 08/11/17 03:09 MCV 101.7 fL (83.0-100.0) H 08/11/17 03:09 MCHC 31.3 g/dL (31.6-35.5) L 08/11/17 03:09 PT 14.3 Seconds (9.4-12.1) H 08/11/17 03:09 ABG pCO2 100 mmHg (35-45) H* D 08/11/17 17:06 ABG pO2 70 mmHg (85-104) L D 08/11/17 17:06 ABG HCO3 53 mEq/L (21-27) H 08/11/17 17:06 ABG Total CO2 56 mEq/L (20-26) H 08/11/17 17:06 ABG O2 Saturation 91 % (95-98) L 08/11/17 17:06 ABG Base Excess 21 mEq/L (-2 to 3) H 08/11/17 17:06 Chloride 91 mEq/L (98-107) L 08/11/17 03:09 Carbon Dioxide 43 mEq/L (23-29) H* 08/11/17 03:09 BUN 24 mg/dL (8-23) H 08/11/17 03:09 BUN/Creatinine Ratio 36 (6-26) H 08/11/17 03:09 Glucose 111 mg/dL (70-105) H 08/11/17 03:09 POC Glucose 165 mg/dL (70-99) H 08/11/17 16:26 Troponin I 0.07 ng/mL (< 0.04) H* 08/11/17 03:09 B-Natriuretic Peptide 2170 pg/mL (Less than 100) H 08/10/17 00:32 - Clinical Findings Intake & Output: Intake & Output 08/11/17 08/11/17 08/11/17 07:59 15:59 23:59 Intake Total 0 / 0 147.5 / 147.5 60 / 60 Output Total 0 / 0 2500 / 2500 Balance 0 / 0 147.5 / 147.5 -2440 / -2440 Weight 52.1 kg 50 kg - Attending Attestation I saw and evaluated this patient and my medical decision-making was reviewed with the Resident Physician. I agree with the documented findings, disposition and treatment plan as described except to the extent set forth below. We independently had [id number] contact with the patient I spent 32 minutes of Critical Care time with this patient. It involved decision making of high complexity to assess, manipulate, and support vital organ system failure and/or to prevent further life threatening deterioration of the patient's condition. The time involved in the performance of separately reportable procedures was not counted toward critical care time. Patient seen and examined at bedside Labs, radiology, chart personally reviewed. Management was reviewed during multidisciplinary critical care rounds. 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 Lines: All lines examined without evidence of infection : Dispo: Critically ill high chance of respiratory failure CODE:Full Code
[2017-08-11 17:10] LABS: ABG Base Excess 21 mEq/L (-2 to 3); ABG HCO3 53 mEq/L (21-27); ABG Oxygen Saturation 91 % (95-98); ABG PCO2 100 mmHg (35-45); ABG PH 7.33 pH Units (7.32-7.45); ABG PO2 70 mmHg (85-104); ABG TCO2 56 mEq/L (20-26)
--- NOTE | 2017-08-11 17:18 | Event Note ---
Date of Encounter: 08/11/17 Time of Encounter: 17:15 I examined this patient and my medical decision-making was reviewed with the Resident Physician. I agree with the documented findings, disposition and treatment plan as described except to the extent set forth below. 76-year-old female with acute hypoxic and hypercapnic respiratory failure, secondary to new onset atrial fibrillation acute CHF exacerbation, COPD exacerbation. The patient was in severe respiratory distress during evaluation , despite BiPAP adjustment, she continued to be in distress, repeat ABG after 4 hours on BiPAP showed worsening hypercapnia with PCO2 120, and respiratory acidosis. Pulmonology has been consulted for transfer to the ICU for closer monitor monitoring
[2017-08-11] MEDS ORDERED: Dexmedetomidine HCl 400 MCG/100 ML MLS IVC SCH (17:45)
[2017-08-11] MEDS ORDERED: *HR* Warfarin 3 MG TABLET PO ONE (18:00)
[2017-08-11] MEDS ORDERED: Warfarin perPT PO PRN (23:31)
[2017-08-11] MEDS ORDERED: Naloxone 0.4 MG/ML INJ IVP PRN (23:31)
[2017-08-11] MEDS ORDERED: Levofloxacin 750 MG/150 ML 750 MG/150 ML BAG IVPB SCH (23:45)
[2017-08-12] MEDS: MethylPREDNISolone 40 MG/ML VIAL IVP SCH ×3 (03:41→20:01)
[2017-08-12 06:21] LABS: Hematocrit 36.4 % (35.3-44.9); Hemoglobin 11.4 g/dL (11.5-15.4); Immature Granulocytes % 0.3 % (0-4); Lymphocytes # 0.3 K/mcL (0.6-4.6); Lymphocytes % 5.6 %; Mean Corpuscular HGB Conc 31.3 g/dL (31.6-35.5); Mean Corpuscular Hemoglobin 31.8 pg (28.0-33.3); Mean Corpuscular Volume 101.7 fL (83.0-100.0); Mean Platelet Volume 11.6 fL (9.4-12.4); Monocytes # 0.2 K/mcL (0.0-1.3); Monocytes % 2.5 %; Neutrophils # 5.5 K/mcL (1.6-8.9); Platelet Count 154 K/mcL (140-400); Red Blood Count 3.58 M/mcL (3.82-4.97); Red Cell Distribution Width 13.6 % (11.5-14.5); Segmented Neutrophils % 91.6 %
[2017-08-12 06:42] LABS: BUN/Creatinine Ratio 35 (6-26); Blood Urea Nitrogen 19 mg/dL (8-23); Calcium 8.8 mg/dL (8.6-10.3); Carbon Dioxide 44 mEq/L (23-29); Chloride 89 mEq/L (98-107); Glucose 126 mg/dL (70-105); Osmolality,Calculated 294 (280-300); Potassium 2.7 mEq/L (3.5-5.1); Sodium 140 mEq/L (136-145); eGFR For African Americans > 60 (> 60); eGFR For Non-African Americans > 60 (> 60)
--- NOTE | 2017-08-12 07:47 | Pulmonology Progress Note ---
<Darwin Carr - Last Filed: 08/12/17 10:57> Date of Encounter: 08/12/17 Time of Encounter: 07:45 Assessment and Plan (1) Acute and chronic respiratory failure Current Visit: Yes Status: Acute Underlying history of COPD now with concomitant CHF exacerbation. Usually on 2 L nasal cannula at home. Hypercapnic respiratory failure improved with an IPPV overnight. Remains on bronchodilators, IV steroids and IV diuresis. Continue BiPAP as tolerated. Qualifiers: Respiratory failure complication: hypercapnia Qualified Code(s): J96.22 - Acute and chronic respiratory failure with hypercapnia (2) Acute exacerbation of chronic obstructive airways disease Current Visit: Yes Status: Acute History of oxygen-dependent COPD on 2 L nasal cannula. Continue bronchodilators. Continue IV steroids. Change levaquin to doxycycline. (3) CHF (congestive heart failure) Current Visit: Yes Status: Acute Patient presented volume overloaded with a BNP greater than 2000. Receiving Lasix 20 mg twice daily. Cardiology consulted and following. Echo with systolic dysfunction. Qualifiers: Heart failure type: unspecified Heart failure chronicity: acute Qualified Code(s): I50.9 - Heart failure, unspecified (4) New onset a-fib Current Visit: Yes Status: Acute New-onset atrial fibrillation with RVR. Cardiology consulted. Currently rate controlled on Cardizem drip. On Coumadin for anticoagulation. Echo 08/10/17 Impressions: LVEF 35-40%. Global LV systolic dysfunction. Indeterminate diastolic function. Mildly dilated RV with low normal function. Bi-atrial enlargement. Moderate mitral regurgitation. Moderate tricuspid regurgitation. Severe pulmonary hypertension. (5) Elevated troponin Current Visit: Yes Status: Acute Troponins 0.05, 0.06, 0.07. In the setting of A. fib RVR and respiratory failure. (6) Cardiomyopathy Current Visit: Yes Status: Acute Global systolic dysfunction. Cardiology consulted. Qualifiers: Cardiomyopathy type: unspecified Qualified Code(s): I42.9 - Cardiomyopathy , unspecified (7) DVT prophylaxis Current Visit: Yes Status: Acute On Coumadin for anticoagulation. Subjective Principal diagnosis: Respiratory distress Interval history: On BiPAP overnight. Precedex added for anxiety. No acute events. Appears improved this morning. Objective PUL Vital signs: Last Vital Signs Temp 97.6 F 08/12/17 03:42 Pulse 84 08/12/17 06:00 Resp 14 08/12/17 06:00 BP 114/69 08/12/17 06:00 Pulse Ox 95 08/12/17 06:00 General appearance: no acute distress Eyes: nonicteric ENT: other (BiPAP on) Effort: normal Auscultation: bilateral: diminished breath sounds Cardiovascular: irregular rhythm Gastrointestinal: soft, non-tender, non-distended Integumentary: normal Extremities: no cyanosis, no edema Musculoskeletal: no deformities normal mental status Results - Laboratory Findings CBC and BMP: 08/12/17 06:08 08/12/17 06:08 ABG ABG pH 7.33 pH Units (7.32-7.45) 08/11/17 17:06 ABG pCO2 100 mmHg (35-45) H* D 08/11/17 17:06 ABG pO2 70 mmHg (85-104) L D 08/11/17 17:06 ABG O2 Saturation 91 % (95-98) L 08/11/17 17:06 PT/INR, D-dimer PT 14.3 Seconds (9.4-12.1) H 08/11/17 03:09 Abnormal lab findings: Abnormal lab results RBC 3.58 M/mcL (3.82-4.97) L 08/12/17 06:08 Hgb 11.4 g/dL (11.5-15.4) L 08/12/17 06:08 MCV 101.7 fL (83.0-100.0) H 08/12/17 06:08 MCHC 31.3 g/dL (31.6-35.5) L 08/12/17 06:08 Lymphocytes # 0.3 K/mcL (0.6-4.6) L 08/12/17 06:08 PT 14.3 Seconds (9.4-12.1) H 08/11/17 03:09 ABG pCO2 100 mmHg (35-45) H* D 08/11/17 17:06 ABG pO2 70 mmHg (85-104) L D 08/11/17 17:06 ABG HCO3 53 mEq/L (21-27) H 08/11/17 17:06 ABG Total CO2 56 mEq/L (20-26) H 08/11/17 17:06 ABG O2 Saturation 91 % (95-98) L 08/11/17 17:06 ABG Base Excess 21 mEq/L (-2 to 3) H 08/11/17 17:06 Potassium 2.7 mEq/L (3.5-5.1) L 08/12/17 06:08 Chloride 89 mEq/L (98-107) L 08/12/17 06:08 Carbon Dioxide 44 mEq/L (23-29) H* 08/12/17 06:08 Creatinine 0.54 mg/dL (0.60-1.20) L 08/12/17 06:08 BUN/Creatinine Ratio 35 (6-26) H 08/12/17 06:08 Glucose 126 mg/dL (70-105) H 08/12/17 06:08 POC Glucose 125 mg/dL (70-99) H 08/11/17 23:29 Troponin I 0.07 ng/mL (< 0.04) H* 08/11/17 03:09 B-Natriuretic Peptide 2170 pg/mL (Less than 100) H 08/10/17 00:32 - Clinical Findings Intake & Output: Intake & Output 08/11/17 08/11/17 08/12/17 15:59 23:59 07:59 Intake Total 147.5 / 147.5 60 / 60 122.5 / 122.5 Output Total 2500 / 2500 650 / 650 Balance 147.5 / 147.5 -2440 / -2440 -527.5 / -527.5 Weight 50 kg 49.5 kg Consult Discharge Plan - Plan Referrals: Steven Ohara DO [Primary Care Provider] - 08/17/17 1:30 pm <Dallas Reis S - Last Filed: 08/12/17 20:39> Date of Encounter: 08/12/17 Objective PUL Vital signs: Last Vital Signs Temp 97.4 F L 08/12/17 19:09 Pulse 92 08/12/17 19:33 Resp 18 08/12/17 19:30 BP 98/75 08/12/17 19:30 Pulse Ox 100 08/12/17 19:30 Results - Laboratory Findings CBC and BMP: 08/12/17 06:08 08/12/17 06:08 ABG ABG pH 7.33 pH Units (7.32-7.45) 08/11/17 17:06 ABG pCO2 100 mmHg (35-45) H* D 08/11/17 17:06 ABG pO2 70 mmHg (85-104) L D 08/11/17 17:06 ABG O2 Saturation 91 % (95-98) L 08/11/17 17:06 PT/INR, D-dimer PT 41.0 Seconds (9.4-12.1) H D 08/12/17 08:06 Abnormal lab findings: Abnormal lab results RBC 3.58 M/mcL (3.82-4.97) L 08/12/17 06:08 Hgb 11.4 g/dL (11.5-15.4) L 08/12/17 06:08 MCV 101.7 fL (83.0-100.0) H 08/12/17 06:08 MCHC 31.3 g/dL (31.6-35.5) L 08/12/17 06:08 Lymphocytes # 0.3 K/mcL (0.6-4.6) L 08/12/17 06:08 PT 41.0 Seconds (9.4-12.1) H D 08/12/17 08:06 ABG pCO2 100 mmHg (35-45) H* D 08/11/17 17:06 ABG pO2 70 mmHg (85-104) L D 08/11/17 17:06 ABG HCO3 53 mEq/L (21-27) H 08/11/17 17:06 ABG Total CO2 56 mEq/L (20-26) H 08/11/17 17:06 ABG O2 Saturation 91 % (95-98) L 08/11/17 17:06 ABG Base Excess 21 mEq/L (-2 to 3) H 08/11/17 17:06 Potassium 2.7 mEq/L (3.5-5.1) L 08/12/17 06:08 Chloride 89 mEq/L (98-107) L 08/12/17 06:08 Carbon Dioxide 44 mEq/L (23-29) H* 08/12/17 06:08 Creatinine 0.54 mg/dL (0.60-1.20) L 08/12/17 06:08 BUN/Creatinine Ratio 35 (6-26) H 08/12/17 06:08 Glucose 126 mg/dL (70-105) H 08/12/17 06:08 POC Glucose 183 mg/dL (70-99) H 08/12/17 11:47 Troponin I 0.07 ng/mL (< 0.04) H* 08/11/17 03:09 B-Natriuretic Peptide 2170 pg/mL (Less than 100) H 08/10/17 00:32 - Clinical Findings Intake & Output: Intake & Output 08/12/17 08/12/17 08/12/17 07:59 15:59 23:59 Intake Total 122.5 / 122.5 510 / 510 120 / 120 Output Total 650 / 650 575 / 575 275 / 275 Balance -527.5 / -527.5 -65 / -65 -155 / -155 Weight 49.5 kg - Attending Attestation - Attending Attestation I saw and evaluated this patient and my medical decision-making was reviewed with the Resident Physician. I agree with the documented findings, disposition and treatment plan as described except to the extent set forth below. We independently had [id number] contact with the patient Patient seen and examined at bedside Labs, radiology, chart personally reviewed. Management was reviewed during multidisciplinary critical care rounds. DROP WIRER : Patient is alert following commands AX 3 Pulm:COPD exacerbation to continue BIPAP , bronchodilators and steroids Cards: Systolic and diastolic heart failure to continue diuresis , New onset Atrial fibrillation on anti-coagulation FEN-GI: If she tolerates off BIPAP we can advance her diet Renal:Labs reviewed ID: To start on Doxycycline for COPD exacerbation Heme/Onc:Labs reviewed Endo: Glucose Monitored Integ/MSK: Skin Care per routine ICU Nursing Protocol to prevent ulcers. Lines: All lines examined without evidence of infection : Dispo: Patient can be transfered to if she tolerating periods off BIPAP CODE:Full Code
[2017-08-12] MEDS ORDERED: Furosemide 20 MG/2 ML VIAL IVP SCH (08:00)
[2017-08-12 08:20] LABS: INR 3.7
[2017-08-12] MEDS ORDERED: Acetaminophen 325 MG TABLET PO PRN ×2 (08:47→13:21)
[2017-08-12] MEDS ORDERED: Aspirin Enteric Coated 81 MG Tablet PO SCH (09:00)
[2017-08-12] MEDS ORDERED: Levofloxacin 750 MG/150 ML 750 MG/150 ML BAG IVPB SCH (09:00)
--- NOTE | 2017-08-12 09:33 | Cardiology Progress Note ---
Date of Encounter: 08/12/17 Time of Encounter: 09:30 Assessment and Plan (1) New onset a-fib Current Visit: Yes Status: Acute Patient with paroxysmal afib. During evaluation was in normal sinus. Regular rate. Recommend continue Cardizem drip for now until able to consistently take oral medications. Continue Coumadin with a goal INR of 2-3. (2) Cardiomyopathy Current Visit: Yes Status: Acute Cardiomyopathy noted on TTE, LVEF 35-40%. This could be tachycardia induced, significant CAD or other causes cannot be excluded. Ideally, we would consider a diagnostic cardiac catheterisation. However, patient's respiratory status currently would not allow us to safely perform diagnostic catheterization. Patient states she would be agreeable to cardiac catheterization when able. Qualifiers: Cardiomyopathy type: unspecified Qualified Code(s): I42.9 - Cardiomyopathy , unspecified Discussion w patient/family: The assessment and plan as outlined above was discussed with the patient and/or family members who expressed understanding and agreement. All questions were answered. Thank you for involving us in the care of your patient. Please call with any questions. Subjective Principal diagnosis: Respiratory distress Interval history: Patient transferred to ICU overnight for hypercarbic respiratory distress. Patient currently on BiPAP. Patient denies chest pain, pressure or palpitations. Patient sinus during evaluation but has had paroxysmal Afib throughout the night according to nursing staff. Patient currently being anticoagulated with coumadin. Objective Vital Signs, Last 4 Hours Temp Pulse Resp BP Pulse Ox 08/12/17 09:00 90 16 122/85 90 08/12/17 08:00 97.7 F 96 14 124/89 92 08/12/17 07:55 14 119/65 93 08/12/17 06:00 84 14 114/69 95 General: Conversant, Other (Frail, on BiPAP) HEENT: Atraumatic, Normocephaly, Mucus Membranes Moist Neck: No JVD, Normal carotid pulses Cardiac: Other (irregular rhythm, regular rate) Lungs: Other (coarse breath sounds throughout) Neuro: Alert and responsive, No focal deficits noted Abdomen: Soft, Non-Tender Skin: No rashes noted on visualized skin Musculoskeletal: No Chest Wall Tenderness Extremities: No Edema, Normal Pulses Results 08/12/17 06:08 08/12/17 06:08 Lab Results 08/12/17 08/12/17 08/12/17 06:08 06:08 08:06 WBC 6.0 Hgb 11.4 L Hct 36.4 Plt Count 154 INR 3.7 D Sodium 140 Potassium 2.7 L Chloride 89 L Carbon Dioxide 44 H* BUN 19 Creatinine 0.54 L Glucose 126 H Calcium 8.8 Consult Discharge Plan - Plan Referrals: Steven Ohara DO [Primary Care Provider] - 08/17/17 1:30 pm
[2017-08-12] MEDS ORDERED: Tiotropium 18 MCG inhalation IH SCH (10:00)
[2017-08-12] MEDS ORDERED: Budesonide/Formoterol 160/4.5 MDI IH SCH (10:00)
[2017-08-12] MEDS ORDERED: Potassium Effervescent 25 MEQ TABLET.EFF PO ONE (11:20)
[2017-08-12] MEDS ORDERED: Metoprolol XL (24 HR) Succ 50 MG TAB.ER.24H PO SCH (11:45)
[2017-08-12] MEDS ORDERED: Naloxone 0.4 MG/ML INJ IVP PRN (13:21)
[2017-08-12] MEDS: Furosemide 20 MG/2 ML VIAL IVP SCH (16:17)
[2017-08-12] MEDS ORDERED: Enoxaparin Weight Dosing SQ SCH (18:00)
[2017-08-12] MEDS: Doxycycline 100 MG CAPSULE PO SCH (20:00)
[2017-08-12] MEDS: Budesonide/Formoterol 160/4.5 MDI IH SCH (20:15)
[2017-08-12] MEDS ORDERED: Doxycycline 100 MG CAPSULE PO SCH (21:00)
[2017-08-13] MEDS: MethylPREDNISolone 40 MG/ML VIAL IVP SCH ×3 (03:49→20:03)
[2017-08-13 03:57] LABS: Hematocrit 34.3 % (35.3-44.9); Immature Granulocytes % 0.6 % (0-4); Lymphocytes # 0.4 K/mcL (0.6-4.6); Lymphocytes % 4.2 %; Mean Corpuscular HGB Conc 32.1 g/dL (31.6-35.5); Mean Corpuscular Hemoglobin 31.5 pg (28.0-33.3); Mean Corpuscular Volume 98.3 fL (83.0-100.0); Mean Platelet Volume 11.7 fL (9.4-12.4); Monocytes # 0.4 K/mcL (0.0-1.3); Monocytes % 3.8 %; Neutrophils # 8.9 K/mcL (1.6-8.9); Platelet Count 139 K/mcL (140-400); Red Blood Count 3.49 M/mcL (3.82-4.97); Red Cell Distribution Width 13.3 % (11.5-14.5); Segmented Neutrophils % 91.4 %
[2017-08-13 04:09] LABS: INR 7.3; Prothrombin Time 82.2 Seconds (9.4-12.1)
[2017-08-13 04:17] LABS: Magnesium 1.7 mg/dL (1.6-2.6); Phosphorous 2.7 mg/dL (2.7-4.5)
[2017-08-13 04:30] LABS: BUN/Creatinine Ratio 51 (6-26); Blood Urea Nitrogen 24 mg/dL (8-23); Calcium 8.5 mg/dL (8.6-10.3); Carbon Dioxide 39 mEq/L (23-29); Chloride 85 mEq/L (98-107); Glucose 123 mg/dL (70-105); Osmolality,Calculated 275 (280-300); Sodium 130 mEq/L (136-145); eGFR For African Americans > 60 (> 60); eGFR For Non-African Americans > 60 (> 60)
[2017-08-13] MEDS: Aspirin Enteric Coated 81 MG Tablet PO SCH (08:39)
[2017-08-13] MEDS: Furosemide 20 MG/2 ML VIAL IVP SCH ×2 (08:39→18:44)
[2017-08-13] MEDS: Metoprolol XL (24 HR) Succ 50 MG TAB.ER.24H PO SCH (08:39)
[2017-08-13] MEDS: Doxycycline 100 MG CAPSULE PO SCH ×2 (08:39→20:03)
--- NOTE | 2017-08-13 09:08 | Internal Med Progress Note ---
<Jordy Barrera - Last Filed: 08/13/17 16:11> Date of Encounter: 08/13/17 Time of Encounter: 08:00 - Assessment and plan (1) Acute exacerbation of chronic obstructive airways disease Current Visit: Yes Status: Acute Assessment and plan: Improved. Currently on 4L NC. Continue BIPAP as tolerated. Continue Duoneb, Solumedrol, diuresis. Continue Doxy Step down from ICU (2) New onset a-fib Current Visit: Yes Status: Acute Assessment and plan: Currently A fib with RVR. likely worsened by respiratory failure. INR 7.3. Hold Coumadin C when stable (3) CHF (congestive heart failure) Current Visit: Yes Status: Acute Assessment and plan: Uncontrolled ventricular rate in the context of new onset atrial fibrillation. Likely triggered by underlying COPD. Echo demonstrates LVEF = 35-40% with global LV systolic dysfunction, severe pulmonary hypertension, biarial enlargement. hypokinetic wall motion noted at multiple areas. Continue Lasix 20 mg IV twice a day as she is Lasix naive. Monitor and adjust for intake and output, daily weights. Qualifiers: Heart failure type: unspecified Heart failure chronicity: acute Qualified Code(s): I50.9 - Heart failure, unspecified (4) Elevated troponin Current Visit: Yes Status: Acute Assessment and plan: Demand ischemia from rapid ventricular rate. Continue on asa (5) Severe chronic obstructive pulmonary disease Current Visit: Yes Status: Acute Assessment and plan: Continue Spiriva, Symbicort, albuterol, solu-medrol. Monitor closely. (6) Cardiomyopathy Current Visit: Yes Status: Acute Assessment and plan: Cardiomyopathy noted on TTE, LVEF 35-40%. Plan for LHC when stable. Qualifiers: Cardiomyopathy type: unspecified Qualified Code(s): I42.9 - Cardiomyopathy , unspecified (7) DVT prophylaxis Current Visit: Yes Status: Acute Assessment and plan: Anticoagulated with Coumadin. - Time Spent With Patient Total time spent is greater than 50% in coordination of care (as documented) at patient's floor/unit and/or counseling patient: Greater than 35 minutes - Subjective Interval history: Patient reports improvement of SOB. Was on BIPAP for 4 hours last night without decompensation. Denies CP, cough, abdominal pain. Overall improvement since last seen. Denies dysuria, hematuria. Patient is currently on 4L NC. Tolerating PO intake well. No other acute complaints. - Constitutional Vitals: Temp Pulse Resp BP Pulse Ox 97.4 F L 93 24 114/67 93 08/13/17 07:30 08/13/17 08:30 08/13/17 08:30 08/13/17 08:30 08/13/17 08:30 General appearance: Present: cachectic, mild distress, A&O X 3, pleasant, answers questions appropriately - Head Head exam: Present: atraumatic, normocephalic - Eye Eye exam: Present: EOMI, conjuntiva pink, sclera anicteric - Neck Neck exam general surgery: Present: supple, trachea midline. Absent: lymphadenopathy - Respiratory Respiratory exam: Present: wheezes. Absent: accessory muscle use - Cardiovascular Cardiovascular exam: Present: distant heart sounds, RRR, +S1, +S2. Absent: diastolic murmur, gallop, rubs, systolic murmur - GI/Abdominal GI/Abdominal exam: Present: normal bowel sounds, soft, no peritoneal signs. Absent: distended, tenderness - Extremities Exam Extremities exam: Present: warm, radial pulses palpable and symmetrical. Absent : calf tenderness, cyanotic, pedal edema - Neurological Exam Neurological exam: Present: alert, oriented X3, no focal deficits. Absent: pronater drift, facial droop, speech deficit - Skin Skin exam: Present: dry, intact Internal Medicine: Result - Labs CBC & Chem 7: 08/13/17 03:45 08/13/17 03:45 Labs: Short CBC 08/13/17 Range/Units 03:45 WBC 9.7 D (4.3-11.1) K/mcL Hgb 11.0 L (11.5-15.4) g/dL Hct 34.3 L (35.3-44.9) % Plt Count 139 L (140-400) K/mcL Neutrophils # 8.9 (1.6-8.9) K/mcL BMP 08/13/17 03:45 Sodium 130 L D Potassium 3.0 L Chloride 85 L Carbon Dioxide 39 H BUN 24 H Creatinine 0.47 L Glucose 123 H Calcium 8.5 L - ABG Interpretation ABG results: ABG ABG pH 7.33 pH Units (7.32-7.45) 08/11/17 17:06 ABG pCO2 100 mmHg (35-45) H* D 05/01/18 17:06 ABG pO2 70 mmHg (85-104) L D 08/11/17 17:06 ABG O2 Saturation 91 % (95-98) L 08/11/17 17:06 PT/INR, D-dimer PT 82.2 Seconds (9.4-12.1) H* D 08/13/17 03:45 Consult Discharge Plan - Plan Referrals: Steven Ohara DO [Primary Care Provider] - 08/17/17 1:30 pm <Nabor Baig - Last Filed: 08/13/17 16:48> Date of Encounter: 08/13/17 - Assessment and plan (1) Acute exacerbation of chronic obstructive airways disease Current Visit: Yes Status: Acute (2) CHF (congestive heart failure) Current Visit: Yes Status: Acute Qualifiers: Heart failure type: unspecified Heart failure chronicity: acute Qualified Code(s): I50.9 - Heart failure, unspecified (3) Elevated troponin Current Visit: Yes Status: Acute (4) New onset a-fib Current Visit: Yes Status: Acute (5) Severe chronic obstructive pulmonary disease Current Visit: Yes Status: Acute (6) Cardiomyopathy Current Visit: Yes Status: Acute Qualifiers: Cardiomyopathy type: unspecified Qualified Code(s): I42.9 - Cardiomyopathy , unspecified (7) DVT prophylaxis Current Visit: Yes Status: Acute - Time Spent With Patient Total time spent is greater than 50% in coordination of care (as documented) at patient's floor/unit and/or counseling patient: - Constitutional Vitals: Temp Pulse Resp BP Pulse Ox 97.6 F 89 23 112/79 87 08/13/17 11:23 08/13/17 11:23 08/13/17 15:32 08/13/17 11:23 08/13/17 15:32 Internal Medicine: Result - Labs CBC & Chem 7: 08/13/17 03:45 08/13/17 03:45 Labs: Short CBC 08/13/17 Range/Units 03:45 WBC 9.7 D (4.3-11.1) K/mcL Hgb 11.0 L (11.5-15.4) g/dL Hct 34.3 L (35.3-44.9) % Plt Count 139 L (140-400) K/mcL Neutrophils # 8.9 (1.6-8.9) K/mcL BMP 08/13/17 03:45 Sodium 130 L D Potassium 3.0 L Chloride 85 L Carbon Dioxide 39 H BUN 24 H Creatinine 0.47 L Glucose 123 H Calcium 8.5 L - ABG Interpretation ABG results: ABG ABG pH 7.33 pH Units (7.32-7.45) 08/11/17 17:06 ABG pCO2 100 mmHg (35-45) H* D 08/11/17 17:06 ABG pO2 70 mmHg (85-104) L D 08/11/17 17:06 ABG O2 Saturation 91 % (95-98) L 08/11/17 17:06 PT/INR, D-dimer PT 82.2 Seconds (9.4-12.1) H* D 08/13/17 03:45 - Attending Attestation I examined this patient 08/13, and my medical decision-making was reviewed with the Resident Physician. I agree with the documented findings, disposition and treatment plan as described except to the extent set forth below. Seen and evaluated at the bedside in the ICU She is admitted and being managed for acute CHFrEF, acute hypercapneic and hypoxic respiratory failure secondary to CHFE, COPDE, NEwe onset Afib with RVR , CMP She was managed conservatively in the ICU and has made significant improvement She has no new complains, she looks more comfortable Physical exam: VSS< not in distress, AAOX3, no gross neuro deficits, chest is CTAB, HS S1, S2, rate controlled, abdomen is soft, trace bilateral piting pedal edema Labs and Imaging reviewed: INR 7.3 -no bleeding, K 3.0, renal function is otherwise stable Plan: Continue current care, GIve VIt K PO, Replace K, for transfer out of ICU, per cardio for [facility] prior to discharge qualify for BiPAP a.m Rest as in resident physician's documentation
--- NOTE | 2017-08-13 09:30 | Cardiology Progress Note ---
Addendum entered and electronically signed by Charo Bueno DO 08/13/17 10 :10: Heart cath considered but patient not a good candidate at this time due to supratherapeutic INR and unable to lie flat due to respiratory status. Continue to treat respiratory status and reconsult prior to discharge when patient is able to tolerate cath. Original Note: <Charo Bueno - Last Filed: 08/13/17 09:42> Date of Encounter: 08/13/17 Time of Encounter: 09:42 Assessment and Plan (1) New onset a-fib Current Visit: Yes Status: Acute Patient with paroxysmal afib. During evaluation was in normal sinus. Regular rate. Toprol-XL and lisinopril. Hold Coumadin for now in preparation for possible cardiac catheterization in the near future. Start Lovenox, creatinine normal. (2) Cardiomyopathy Current Visit: Yes Status: Acute Cardiomyopathy noted on TTE, LVEF 35-40%. This could be tachycardia induced, significant CAD or other causes cannot be excluded. Plan for catheterization when respiration status has improved and she can tolerate the procedure. For now, continue aspirin, Toprol-XL and lisinopril. Hold Coumadin for now in preparation for possible cardiac catheterization in the near future. Start Lovenox, creatinine normal. Qualifiers: Cardiomyopathy type: unspecified Qualified Code(s): I42.9 - Cardiomyopathy , unspecified Discussion w patient/family: The assessment and plan as outlined above was discussed with the patient and/or family members who expressed understanding and agreement. All questions were answered. Thank you for involving us in the care of your patient. Please call with any questions. Subjective Principal diagnosis: Respiratory distress Interval history: Patient states she is doing better today. No longer on BiPAP just nasal cannula. Patient denies chest pain, pressure or palpitations. Patient rate controlled at this time and currently on lovenox for anticoagulation. Objective Vital Signs, Last 4 Hours Temp Pulse Resp BP Pulse Ox 08/13/17 08:30 93 24 114/67 93 08/13/17 07:56 21 93 08/13/17 07:30 97.4 F L 93 21 118/68 General: Conversant, No Apparent Distress HEENT: Atraumatic, Normocephaly, Mucus Membranes Moist Neck: No JVD, Normal carotid pulses Cardiac: Normal S1 and S2, No Murmur, Other (Irregular rhythm, normal rate) Lungs: Other (Coarse breath sounds throughout) Neuro: Alert and responsive, No focal deficits noted Abdomen: Soft, Non-Tender Skin: No rashes noted on visualized skin Musculoskeletal: No Chest Wall Tenderness Extremities: No Edema, Normal Pulses Results 08/13/17 03:45 08/13/17 03:45 Lab Results 08/13/17 08/13/17 08/13/17 03:45 03:45 03:45 WBC 9.7 D Hgb 11.0 L Hct 34.3 L Plt Count 139 L INR 7.3 H* D Sodium Potassium Chloride Carbon Dioxide BUN Creatinine Glucose Calcium Magnesium 1.7 08/13/17 03:45 WBC Hgb Hct Plt Count INR Sodium 130 L D Potassium 3.0 L Chloride 85 L Carbon Dioxide 39 H BUN 24 H Creatinine 0.47 L Glucose 123 H Calcium 8.5 L Magnesium Consult Discharge Plan - Plan Referrals: Steven Ohara DO [Primary Care Provider] - 08/17/17 1:30 pm <Shivani Figueroa - Last Filed: 08/13/17 13:21> Date of Encounter: 08/13/17 Assessment and Plan Discussion w patient/family: I examined this patient and my medical decision-making was reviewed with the Resident Physician. I agree with the documented findings, disposition and treatment plan. Ms. Munoz was independently seen and examined. Presented with COPD exacerbation requiring ICU level care. Incidentally discovered to have newly discovered severely reduced LVEF, 35-40% and new PAF. Presently remains on BIPAP unable to lay flat. Supratherapeutic INR - coumadin being held. Recommend considering LHC prior to discharge when clinical status improves and patient able to lay flat. Diuresis per primary team. Continue ACEI, BB, asa. Patient in NSR with infrequent episodes of PAF. Will sign off - please reconsult when LHC is appropriate. Objective Vital Signs, Last 4 Hours Temp Pulse Resp BP Pulse Ox 08/13/17 11:43 23 84 08/13/17 11:23 97.6 F 77 27 112/79 94 08/13/17 09:45 24 93 08/13/17 09:30 81 28 121/90 97 Results 08/13/17 03:45 08/13/17 03:45 Lab Results 08/13/17 08/13/17 08/13/17 03:45 03:45 03:45 WBC 9.7 D Hgb 11.0 L Hct 34.3 L Plt Count 139 L INR 7.3 H* D Sodium Potassium Chloride Carbon Dioxide BUN Creatinine Glucose Calcium Magnesium 1.7 08/13/17 03:45 WBC Hgb Hct Plt Count INR Sodium 130 L D Potassium 3.0 L Chloride 85 L Carbon Dioxide 39 H BUN 24 H Creatinine 0.47 L Glucose 123 H Calcium 8.5 L Magnesium
[2017-08-13] MEDS: Budesonide/Formoterol 160/4.5 MDI IH SCH ×2 (09:44→19:33)
[2017-08-13] MEDS: Tiotropium 18 MCG inhalation IH SCH (09:44)
[2017-08-14] MEDS: MethylPREDNISolone 40 MG/ML VIAL IVP SCH (03:25)
[2017-08-14 04:02] LABS: Hematocrit 36.7 % (35.3-44.9); Hemoglobin 11.6 g/dL (11.5-15.4); Immature Granulocytes % 0.6 % (0-4); Lymphocytes # 0.4 K/mcL (0.6-4.6); Lymphocytes % 3.7 %; Mean Corpuscular HGB Conc 31.6 g/dL (31.6-35.5); Mean Corpuscular Hemoglobin 31.1 pg (28.0-33.3); Mean Corpuscular Volume 98.4 fL (83.0-100.0); Mean Platelet Volume 12.2 fL (9.4-12.4); Monocytes # 0.7 K/mcL (0.0-1.3); Monocytes % 6.8 %; Neutrophils # 9.5 K/mcL (1.6-8.9); Platelet Count 161 K/mcL (140-400); Red Blood Count 3.73 M/mcL (3.82-4.97); Red Cell Distribution Width 13.2 % (11.5-14.5); Segmented Neutrophils % 88.9 %
[2017-08-14 04:13] LABS: BUN/Creatinine Ratio 48 (6-26); Blood Urea Nitrogen 37 mg/dL (8-23); Calcium 8.7 mg/dL (8.6-10.3); Carbon Dioxide 36 mEq/L (23-29); Chloride 83 mEq/L (98-107); Glucose 140 mg/dL (70-105); Osmolality,Calculated 269 (280-300); Potassium 4.2 mEq/L (3.5-5.1); Sodium 124 mEq/L (136-145); eGFR For African Americans > 60 (> 60); eGFR For Non-African Americans > 60 (> 60)
[2017-08-14 04:19] LABS: INR 1.6; Prothrombin Time 17.4 Seconds (9.4-12.1)
[2017-08-14] MEDS: Budesonide/Formoterol 160/4.5 MDI IH SCH ×2 (07:59→19:36)
[2017-08-14] MEDS: Tiotropium 18 MCG inhalation IH SCH (07:59)
[2017-08-14] MEDS: Aspirin Enteric Coated 81 MG Tablet PO SCH (08:56)
[2017-08-14] MEDS: Metoprolol XL (24 HR) Succ 50 MG TAB.ER.24H PO SCH (08:56)
[2017-08-14] MEDS: Doxycycline 100 MG CAPSULE PO SCH ×2 (08:56→20:53)
[2017-08-14] MEDS ORDERED: Furosemide 20 MG TABLET PO PRN (10:24)
[2017-08-14] MEDS: *HR* Enoxaparin 30 MG/0.3 ML SYRINGE SQ SCH (11:29)
[2017-08-14] MEDS: Furosemide 20 MG TABLET PO SCH (11:29)
--- NOTE | 2017-08-14 14:16 | Internal Med Progress Note ---
<Jordy Barrera - Last Filed: 08/14/17 14:11> Date of Encounter: 08/14/17 Time of Encounter: 11:00 - Assessment and plan (1) CHF (congestive heart failure) Current Visit: Yes Status: Acute Assessment and plan: Uncontrolled ventricular rate in the context of new onset atrial fibrillation. Likely triggered by underlying COPD. Echo demonstrates LVEF = 35-40% with global LV systolic dysfunction, severe pulmonary hypertension, biarial enlargement. hypokinetic wall motion noted at multiple areas. Continue Lasix 20 mg IV twice a day as she is Lasix naive. Monitor and adjust for intake and output, daily weights. Spoke with Dr. Figueroa in regards to INR back down to 1.6. She recommends to wait until patient can tolerate lying supine before LHC. Will re-consult cardiology once patient can handle supine position. Start Lovenox. Qualifiers: Heart failure type: unspecified Heart failure chronicity: acute Qualified Code(s): I50.9 - Heart failure, unspecified (2) Acute exacerbation of chronic obstructive airways disease Current Visit: Yes Status: Acute Assessment and plan: Improved. Currently on 4L NC. Continue BIPAP as tolerated. Continue Duoneb, prednisone, diuresis. Continue Doxycycline day #3 Step down from ICU (3) New onset a-fib Current Visit: Yes Status: Acute Assessment and plan: Currently A fib with RVR. likely worsened by respiratory failure. INR back to 1.6 after receiving vitamin K. LHC when stable/ able to lie supine. Start Lovenox. (4) Elevated troponin Current Visit: Yes Status: Acute Assessment and plan: Demand ischemia from rapid ventricular rate. Continue on asa (5) Severe chronic obstructive pulmonary disease Current Visit: Yes Status: Acute Assessment and plan: Continue Spiriva, Symbicort, albuterol, solu-medrol. Monitor closely. (6) Cardiomyopathy Current Visit: Yes Status: Acute Assessment and plan: Cardiomyopathy noted on TTE, LVEF 35-40%. Plan for LHC when stable. Qualifiers: Cardiomyopathy type: unspecified Qualified Code(s): I42.9 - Cardiomyopathy , unspecified (7) DVT prophylaxis Current Visit: Yes Status: Acute Assessment and plan: Anticoagulated with Coumadin. - Time Spent With Patient Total time spent is greater than 50% in coordination of care (as documented) at patient's floor/unit and/or counseling patient: Greater than 35 minutes - Subjective Interval history: Patient continues to improve. Denies CP, cough, abdominal pain, dysuria, hematuria. Patient is currently on 4L NC. Tolerating BIPAP, PO intake. No other acute complaints. Would like to be transferred out of ICU. - Constitutional Vitals: Temp Pulse Resp BP Pulse Ox 97.8 F 66 18 116/94 98 08/14/17 11:54 08/14/17 11:00 08/14/17 11:00 08/14/17 11:00 08/14/17 11:00 General appearance: Present: cachectic, mild distress, A&O X 3, pleasant, answers questions appropriately - Head Head exam: Present: atraumatic, normocephalic - Eye Eye exam: Present: PERRL, conjuntiva pink, sclera anicteric Pupils: Present: PERRL - Neck Neck exam general surgery: Present: supple, trachea midline. Absent: lymphadenopathy - Respiratory Respiratory exam: Present: rales, rhonchi, wheezes. Absent: accessory muscle use - Cardiovascular Cardiovascular exam: Present: RRR, +S1, +S2. Absent: diastolic murmur, gallop, rubs, systolic murmur - GI/Abdominal GI/Abdominal exam: Present: normal bowel sounds, soft, no peritoneal signs. Absent: distended, tenderness - Extremities Exam Extremities exam: Present: warm, radial pulses palpable and symmetrical. Absent : calf tenderness, cyanotic, pedal edema - Neurological Exam Neurological exam: Present: CN II-XII intact, oriented X3, no focal deficits. Absent: pronater drift, facial droop, speech deficit - Skin Skin exam: Present: dry, intact Internal Medicine: Result - Labs CBC & Chem 7: 08/14/17 03:16 08/14/17 03:16 Labs: Short CBC 08/14/17 Range/Units 03:16 WBC 10.7 (4.3-11.1) K/mcL Hgb 11.6 (11.5-15.4) g/dL Hct 36.7 (35.3-44.9) % Plt Count 161 (140-400) K/mcL Neutrophils # 9.5 H (1.6-8.9) K/mcL BMP 08/14/17 03:16 Sodium 124 L Potassium 4.2 D Chloride 83 L Carbon Dioxide 36 H BUN 37 H Creatinine 0.77 Glucose 140 H Calcium 8.7 - ABG Interpretation ABG results: ABG ABG pH 7.33 pH Units (7.32-7.45) 08/11/17 17:06 ABG pCO2 100 mmHg (35-45) H* D 08/11/17 17:06 ABG pO2 70 mmHg (85-104) L D 08/11/17 17:06 ABG O2 Saturation 91 % (95-98) L 08/11/17 17:06 PT/INR, D-dimer PT 17.4 Seconds (9.4-12.1) H D 08/14/17 03:16 Consult Discharge Plan - Plan Referrals: Steven Ohara DO [Primary Care Provider] - 08/24/17 12:00 pm Eusebio Watson DO [Partnered Physician] - (office will call patient at home with follow up appointment) <Nabor Baig - Last Filed: 08/14/17 18:06> Date of Encounter: 08/14/17 - Assessment and plan (1) Acute exacerbation of chronic obstructive airways disease Current Visit: Yes Status: Acute (2) CHF (congestive heart failure) Current Visit: Yes Status: Acute Qualifiers: Heart failure type: unspecified Heart failure chronicity: acute Qualified Code(s): I50.9 - Heart failure, unspecified (3) Elevated troponin Current Visit: Yes Status: Acute (4) New onset a-fib Current Visit: Yes Status: Acute (5) Severe chronic obstructive pulmonary disease Current Visit: Yes Status: Acute (6) Cardiomyopathy Current Visit: Yes Status: Acute Qualifiers: Cardiomyopathy type: unspecified Qualified Code(s): I42.9 - Cardiomyopathy , unspecified (7) DVT prophylaxis Current Visit: Yes Status: Acute - Time Spent With Patient Total time spent is greater than 50% in coordination of care (as documented) at patient's floor/unit and/or counseling patient: - Constitutional Vitals: Temp Pulse Resp BP Pulse Ox 98.8 F 75 16 105/95 98 08/14/17 16:40 08/14/17 16:40 08/14/17 16:40 08/14/17 16:40 08/14/17 16:40 Internal Medicine: Result - Labs CBC & Chem 7: 08/14/17 03:16 05/04/18 03:16 Labs: Short CBC 08/14/17 Range/Units 03:16 WBC 10.7 (4.3-11.1) K/mcL Hgb 11.6 (11.5-15.4) g/dL Hct 36.7 (35.3-44.9) % Plt Count 161 (140-400) K/mcL Neutrophils # 9.5 H (1.6-8.9) K/mcL BMP 08/14/17 03:16 Sodium 124 L Potassium 4.2 D Chloride 83 L Carbon Dioxide 36 H BUN 37 H Creatinine 0.77 Glucose 140 H Calcium 8.7 - ABG Interpretation ABG results: ABG ABG pH 7.33 pH Units (7.32-7.45) 08/11/17 17:06 ABG pCO2 100 mmHg (35-45) H* D 08/11/17 17:06 ABG pO2 70 mmHg (85-104) L D 08/11/17 17:06 ABG O2 Saturation 91 % (95-98) L 08/11/17 17:06 PT/INR, D-dimer PT 17.4 Seconds (9.4-12.1) H D 08/14/17 03:16 - Attending Attestation I examined this patient 08/14, and my medical decision-making was reviewed with the Resident Physician. I agree with the documented findings, disposition and treatment plan as described except to the extent set forth below. Seen and evaluated at the bedside in the ICU She is admitted and being managed for acute CHFrEF, acute hypercapneic and hypoxic respiratory failure secondary to CHFE, COPDE, NEwe onset Afib with RVR , CMP She was managed conservatively in the ICU and has made significant improvement She has no new complains, she looks more comfortable Physical exam: VSS< not in distress, AAOX3, no gross neuro deficits, chest is CTAB, HS S1, S2, rate controlled, abdomen is soft, trace bilateral piting pedal edema Labs and Imaging reviewed: Slight increase in the BUN, creatinine is within normal limit, metabolic alkalosis is improving. Low potassium. INR is 1.6. Plan: Continue current care, and resume Lovenox at therapeutic dose, Replace K, decrease dose of Lasix. for transfer out of ICU, per cardio for [facility] prior to discharge Overnight BiPAP qualification ordered Rest as in resident physician's documentation
[2017-08-15 03:58] LABS: Basophils % 0.1 %; Eosinophils % 0.5 %; Hematocrit 36.4 % (35.3-44.9); Hemoglobin 11.9 g/dL (11.5-15.4); Immature Granulocytes % 0.5 % (0-4); Lymphocytes # 1.7 K/mcL (0.6-4.6); Lymphocytes % 19.3 %; Mean Corpuscular HGB Conc 32.7 g/dL (31.6-35.5); Mean Corpuscular Hemoglobin 31.7 pg (28.0-33.3); Mean Corpuscular Volume 97.1 fL (83.0-100.0); Mean Platelet Volume 11.9 fL (9.4-12.4); Monocytes # 1.2 K/mcL (0.0-1.3); Monocytes % 13.6 %; Neutrophils # 5.8 K/mcL (1.6-8.9); Platelet Count 152 K/mcL (140-400); Red Blood Count 3.75 M/mcL (3.82-4.97); Red Cell Distribution Width 13.2 % (11.5-14.5)
[2017-08-15 04:06] LABS: INR 1.6
[2017-08-15 04:17] LABS: BUN/Creatinine Ratio 70 (6-26); Blood Urea Nitrogen 37 mg/dL (8-23); Calcium 8.5 mg/dL (8.6-10.3); Carbon Dioxide 36 mEq/L (23-29); Chloride 87 mEq/L (98-107); Glucose 107 mg/dL (70-105); Osmolality,Calculated 273 (280-300); Potassium 4.4 mEq/L (3.5-5.1); Sodium 127 mEq/L (136-145); eGFR For African Americans > 60 (> 60); eGFR For Non-African Americans > 60 (> 60)
[2017-08-15] MEDS: *HR* Enoxaparin 30 MG/0.3 ML SYRINGE SQ SCH ×2 (05:48→17:51)
[2017-08-15] MEDS: Budesonide/Formoterol 160/4.5 MDI IH SCH ×2 (07:30→19:36)
[2017-08-15] MEDS: Tiotropium 18 MCG inhalation IH SCH (07:31)
[2017-08-15] MEDS: Doxycycline 100 MG CAPSULE PO SCH ×2 (09:01→20:52)
[2017-08-15] MEDS: Aspirin Enteric Coated 81 MG Tablet PO SCH (09:02)
[2017-08-15] MEDS: predniSONE 20 MG TABLET PO SCH (09:02)
[2017-08-15] MEDS: Furosemide 20 MG TABLET PO SCH (09:02)
[2017-08-15] MEDS: Metoprolol XL (24 HR) Succ 50 MG TAB.ER.24H PO SCH (09:02)
--- NOTE | 2017-08-15 09:17 | Internal Med Progress Note ---
<Jordy Barrera - Last Filed: 08/15/17 11:34> Date of Encounter: 08/15/17 Time of Encounter: 10:00 - Assessment and plan (1) CHF (congestive heart failure) Current Visit: Yes Status: Acute Assessment and plan: Patient seen by PT/OT. Weaning oxygen, now 2.5L NC. She is able to tolerate being supine now, but does have complaints of SOB with exertion. Uncontrolled ventricular rate in the context of new onset atrial fibrillation. Likely triggered by underlying COPD. Echo demonstrates LVEF = 35-40% with global LV systolic dysfunction, severe pulmonary hypertension, biarial enlargement. hypokinetic wall motion noted at multiple areas. Continue Lasix 20 mg IV twice a day as she is Lasix naive. Monitor and adjust for intake and output, daily weights. Continue Lovenox. Plan remains the same as yesterday. LHC when patient able to tolerate supine position. Qualifiers: Heart failure type: unspecified Heart failure chronicity: acute Qualified Code(s): I50.9 - Heart failure, unspecified (2) Acute exacerbation of chronic obstructive airways disease Current Visit: Yes Status: Acute Assessment and plan: Improved. Continue weaning oxygen as appropriate. Currently 2.5L BIPAP as tolerated. Continue Duoneb, prednisone, diuresis. Continue Doxycycline day #4 (3) New onset a-fib Current Visit: Yes Status: Acute Assessment and plan: No longer in A. fib. No overnight events. INR = 1.6 today LHC when stable/ able to lie supine. Continue with Lovenox. (4) Elevated troponin Current Visit: Yes Status: Acute Assessment and plan: Demand ischemia from rapid ventricular rate. Continue on asa (5) Severe chronic obstructive pulmonary disease Current Visit: Yes Status: Acute Assessment and plan: Continue Spiriva, Symbicort, albuterol, solu-medrol. Monitor closely. (6) Cardiomyopathy Current Visit: Yes Status: Acute Assessment and plan: Cardiomyopathy noted on TTE, LVEF 35-40%. Plan for LHC when stable. Qualifiers: Cardiomyopathy type: unspecified Qualified Code(s): I42.9 - Cardiomyopathy , unspecified (7) DVT prophylaxis Current Visit: Yes Status: Acute Assessment and plan: Anticoagulated with Coumadin. - Time Spent With Patient Total time spent is greater than 50% in coordination of care (as documented) at patient's floor/unit and/or counseling patient: Greater than 35 minutes - Subjective Interval history: Patient is sleeping. When woken, she tells me that they have been "making her do a lot of stuff". She reports that she is tired. Continues to have SOB with weaning of oxygen. Has not required BIPAP overnight. Overall improved respiratory function. Tolerating PO intake and voiding without difficulty. She tells me that she wants to rest and does not have any acute complaints. - Constitutional Vitals: Temp Pulse Resp BP Pulse Ox 98.7 F 81 16 133/84 97 08/15/17 07:16 08/15/17 07:16 08/15/17 07:37 08/15/17 07:16 08/15/17 07:37 General appearance: Present: cachectic, mild distress, A&O X 3, pleasant, answers questions appropriately - Head Head exam: Present: atraumatic, normocephalic - Eye Eye exam: Present: PERRL, conjuntiva pink, sclera anicteric Pupils: Present: PERRL - Neck Neck exam general surgery: Present: supple, trachea midline. Absent: lymphadenopathy - Respiratory Respiratory exam: Present: wheezes. Absent: accessory muscle use, rales, rhonchi - Cardiovascular Cardiovascular exam: Present: RRR, +S1, +S2. Absent: diastolic murmur, gallop, rubs, systolic murmur - GI/Abdominal GI/Abdominal exam: Present: normal bowel sounds, soft, no peritoneal signs. Absent: distended, tenderness - Extremities Exam Extremities exam: Present: warm, radial pulses palpable and symmetrical. Absent : calf tenderness, cyanotic, pedal edema - Neurological Exam Neurological exam: Present: CN II-XII intact, oriented X3, no focal deficits. Absent: pronater drift, facial droop, speech deficit - Skin Skin exam: Present: dry, intact Internal Medicine: Result - Labs CBC & Chem 7: 08/15/17 03:40 08/15/17 03:40 Labs: Short CBC 08/15/17 Range/Units 03:40 WBC 8.8 (4.3-11.1) K/mcL Hgb 11.9 (11.5-15.4) g/dL Hct 36.4 (35.3-44.9) % Plt Count 152 (140-400) K/mcL Neutrophils # 5.8 (1.6-8.9) K/mcL BMP 08/15/17 03:40 Sodium 127 L Potassium 4.4 Chloride 87 L Carbon Dioxide 36 H BUN 37 H Creatinine 0.53 L Glucose 107 H Calcium 8.5 L - ABG Interpretation ABG results: ABG ABG pH 7.33 pH Units (7.32-7.45) 08/11/17 17:06 ABG pCO2 100 mmHg (35-45) H* D 08/11/17 17:06 ABG pO2 70 mmHg (85-104) L D 08/11/17 17:06 ABG O2 Saturation 91 % (95-98) L 08/11/17 17:06 PT/INR, D-dimer PT 17.0 Seconds (9.4-12.1) H 08/15/17 03:40 Consult Discharge Plan - Plan Referrals: Steven Ohara DO [Primary Care Provider] - 08/24/17 12:00 pm Eusebio Watson DO [Partnered Physician] - (office will call patient at home with follow up appointment) <Nabor Baig - Last Filed: 08/15/17 13:09> Date of Encounter: 08/15/17 - Assessment and plan (1) Acute exacerbation of chronic obstructive airways disease Current Visit: Yes Status: Acute (2) CHF (congestive heart failure) Current Visit: Yes Status: Acute Qualifiers: Heart failure type: unspecified Heart failure chronicity: acute Qualified Code(s): I50.9 - Heart failure, unspecified (3) Elevated troponin Current Visit: Yes Status: Acute (4) New onset a-fib Current Visit: Yes Status: Acute (5) Severe chronic obstructive pulmonary disease Current Visit: Yes Status: Acute (6) Cardiomyopathy Current Visit: Yes Status: Acute Qualifiers: Cardiomyopathy type: unspecified Qualified Code(s): I42.9 - Cardiomyopathy , unspecified (7) DVT prophylaxis Current Visit: Yes Status: Acute - Time Spent With Patient Total time spent is greater than 50% in coordination of care (as documented) at patient's floor/unit and/or counseling patient: - Constitutional Vitals: Temp Pulse Resp BP Pulse Ox 98.3 F 74 16 124/78 94 08/15/17 11:00 08/15/17 11:00 08/15/17 11:00 08/15/17 11:00 08/15/17 11:00 Internal Medicine: Result - Labs CBC & Chem 7: 08/15/17 03:40 08/15/17 03:40 Labs: Short CBC 08/15/17 Range/Units 03:40 WBC 8.8 (4.3-11.1) K/mcL Hgb 11.9 (11.5-15.4) g/dL Hct 36.4 (35.3-44.9) % Plt Count 152 (140-400) K/mcL Neutrophils # 5.8 (1.6-8.9) K/mcL BMP 08/15/17 03:40 Sodium 127 L Potassium 4.4 Chloride 87 L Carbon Dioxide 36 H BUN 37 H Creatinine 0.53 L Glucose 107 H Calcium 8.5 L - ABG Interpretation ABG results: ABG ABG pH 7.33 pH Units (7.32-7.45) 08/11/17 17:06 ABG pCO2 100 mmHg (35-45) H* D 08/11/17 17:06 ABG pO2 70 mmHg (85-104) L D 08/11/17 17:06 ABG O2 Saturation 91 % (95-98) L 08/11/17 17:06 PT/INR, D-dimer PT 17.0 Seconds (9.4-12.1) H 08/15/17 03:40 - Attending Attestation I examined this patient 08/15, and my medical decision-making was reviewed with the Resident Physician. I agree with the documented findings, disposition and treatment plan as described except to the extent set forth below. Seen and evaluated at the bedside She is admitted and being managed for acute CHFrEF, acute hypercapneic and hypoxic respiratory failure secondary to CHFE, COPDE, NEwe onset Afib with RVR , CMP She was managed conservatively in the ICU and has made significant improvement She has no new complains, she looks more comfortable Physical exam: VSS, not in distress, AAOX3, no gross neuro deficits, chest is CTAB, HS S1, S2, rate controlled, abdomen is soft, trace bilateral piting pedal edema Labs and Imaging reviewed: Na slightly improved, creatinine is within normal limit, metabolic alkalosis is improving. Low potassium. INR is 1.6. Plan: Continue current care, lasix po, qualified for BIPAP, SW consult Thursday a.m for BIPAP at home, cardio plans for LHC prior to discharge Rest as in resident physician's documentation
[2017-08-16] MEDS: *HR* Enoxaparin 30 MG/0.3 ML SYRINGE SQ SCH ×2 (05:16→17:08)
[2017-08-16 07:19] LABS: BUN/Creatinine Ratio 53 (6-26); Blood Urea Nitrogen 25 mg/dL (8-23); Calcium 8.4 mg/dL (8.6-10.3); Carbon Dioxide 39 mEq/L (23-29); Chloride 87 mEq/L (98-107); Glucose 86 mg/dL (70-105); Osmolality,Calculated 272 (280-300); Potassium 4.9 mEq/L (3.5-5.1); Sodium 129 mEq/L (136-145); eGFR For African Americans > 60 (> 60); eGFR For Non-African Americans > 60 (> 60)
[2017-08-16] MEDS: Budesonide/Formoterol 160/4.5 MDI IH SCH ×2 (07:46→20:10)
[2017-08-16] MEDS: Tiotropium 18 MCG inhalation IH SCH (07:47)
--- NOTE | 2017-08-16 08:12 | Internal Med Progress Note ---
<Nabor Baig T - Last Filed: 08/16/17 13:38> Date of Encounter: 08/16/17 - Assessment and plan (1) Acute exacerbation of chronic obstructive airways disease Current Visit: Yes Status: Acute (2) CHF (congestive heart failure) Current Visit: Yes Status: Acute Qualifiers: Heart failure type: unspecified Heart failure chronicity: acute Qualified Code(s): I50.9 - Heart failure, unspecified (3) Elevated troponin Current Visit: Yes Status: Acute (4) New onset a-fib Current Visit: Yes Status: Acute (5) Severe chronic obstructive pulmonary disease Current Visit: Yes Status: Acute (6) Cardiomyopathy Current Visit: Yes Status: Acute Qualifiers: Cardiomyopathy type: unspecified Qualified Code(s): I42.9 - Cardiomyopathy , unspecified (7) DVT prophylaxis Current Visit: Yes Status: Acute - Time Spent With Patient Total time spent is greater than 50% in coordination of care (as documented) at patient's floor/unit and/or counseling patient: - Constitutional Vitals: Temp Pulse Resp BP Pulse Ox 98.8 F 71 16 106/56 100 08/16/17 11:50 08/16/17 11:55 08/16/17 11:50 08/16/17 11:50 08/16/17 11:50 Internal Medicine: Result - Labs CBC & Chem 7: 08/15/17 03:40 08/16/17 06:29 Labs: BMP 08/16/17 06:29 Sodium 129 L Potassium 4.9 Chloride 87 L Carbon Dioxide 39 H BUN 25 H Creatinine 0.47 L Glucose 86 Calcium 8.4 L - ABG Interpretation ABG results: ABG ABG pH 7.33 pH Units (7.32-7.45) 08/11/17 17:06 ABG pCO2 100 mmHg (35-45) H* D 08/11/17 17:06 ABG pO2 70 mmHg (85-104) L D 08/11/17 17:06 ABG O2 Saturation 91 % (95-98) L 08/11/17 17:06 PT/INR, D-dimer PT 17.0 Seconds (9.4-12.1) H 08/15/17 03:40 Consult Discharge Plan - Plan Referrals: Steven Ohara DO [Primary Care Provider] - 08/24/17 12:00 pm Eusebio Watson, DO [Partnered Physician] - (office will call patient at home with follow up appointment) - Attending Attestation I examined this patient 08/16, and my medical decision-making was reviewed with the Resident Physician. I agree with the documented findings, disposition and treatment plan as described except to the extent set forth below. Seen and evaluated at the bedside She is admitted and being managed for acute CHFrEF, acute hypercapneic and hypoxic respiratory failure secondary to CHFE, COPDE, NEwe onset Afib with RVR , CMP She was managed conservatively in the ICU and has made significant improvement She has no new complains, she looks more comfortable Physical exam: VSS, not in distress, AAOX3, no gross neuro deficits, chest is CTAB, HS S1, S2, rate controlled, abdomen is soft, trace bilateral piting pedal edema Labs and Imaging reviewed: Na slightly improved, creatinine is within normal limit, metabolic alkalosis is improving. Low potassium. INR is 1.6 (08/15) Plan: Continue current care, lasix po, qualified for BIPAP, SW consult Thursday a.m for BIPAP at home, cardio plans for LHC prior to discharge, NPO from SD for same Rest as in resident physician's documentation <Jordy Barrera - Last Filed: 08/16/17 14:42> Date of Encounter: 08/16/17 Time of Encounter: 08:00 - Assessment and plan (1) CHF (congestive heart failure) Current Visit: Yes Status: Acute Assessment and plan: Patient requires 2-4L of oxygen via NC. She is tolerating BIPAP. Uncontrolled ventricular rate in the context of new onset atrial fibrillation. Likely triggered by underlying COPD. Echo demonstrates LVEF = 35-40% with global LV systolic dysfunction, severe pulmonary hypertension, biarial enlargement. hypokinetic wall motion noted at multiple areas. Continue Lasix 20 mg IV twice a day as she is Lasix naive. Monitor and adjust for intake and output, daily weights. She is able to tolerate being supine now. Plan to re-consult cardiology tomorrow for LHC. Qualifiers: Heart failure type: unspecified Heart failure chronicity: acute Qualified Code(s): I50.9 - Heart failure, unspecified (2) Acute exacerbation of chronic obstructive airways disease Current Visit: Yes Status: Acute Assessment and plan: Improved. Continue weaning oxygen as appropriate. Currently 4L BIPAP as tolerated. Continue Duoneb, prednisone, diuresis. Continue Doxycycline day #5 (3) New onset a-fib Current Visit: Yes Status: Acute Assessment and plan: No longer in A. fib. No overnight events. INR = 1.6 today [facility] when stable/ able to lie supine. Continue with Lovenox. (4) Elevated troponin Current Visit: Yes Status: Acute Assessment and plan: Demand ischemia from rapid ventricular rate. Continue on asa (5) Severe chronic obstructive pulmonary disease Current Visit: Yes Status: Acute Assessment and plan: Continue Spiriva, Symbicort, albuterol, solu-medrol. Monitor closely. (6) Cardiomyopathy Current Visit: Yes Status: Acute Assessment and plan: Cardiomyopathy noted on TTE, LVEF 35-40%. Plan for [facility] when stable. Qualifiers: Cardiomyopathy type: unspecified Qualified Code(s): I42.9 - Cardiomyopathy , unspecified (7) DVT prophylaxis Current Visit: Yes Status: Acute Assessment and plan: Anticoagulated with Coumadin. - Time Spent With Patient Total time spent is greater than 50% in coordination of care (as documented) at patient's floor/unit and/or counseling patient: Greater than 35 minutes - Subjective Interval history: Patient sleeping comfortably. She denies CP, shortness of breath. Still feels weak. Currently on 3.5L NC. Tolerated BIPAP last night. Denies any pain. No difficulty tolerating PO intake or voiding. +BM - Constitutional Vitals: Temp Pulse Resp BP Pulse Ox 98.7 F 70 16 117/75 100 08/16/17 07:17 08/16/17 07:17 08/16/17 07:46 08/16/17 07:17 08/16/17 07:46 General appearance: Present: cachectic, mild distress, A&O X 3, pleasant, no acute distress, answers questions appropriately - Head Head exam: Present: atraumatic, normocephalic - Eye Eye exam: Present: normal appearance, conjuntiva pink, sclera anicteric - Neck Neck exam general surgery: Present: supple, trachea midline. Absent: lymphadenopathy - Respiratory Respiratory exam: Present: CTAB. Absent: accessory muscle use, rales, rhonchi, wheezes - Cardiovascular Cardiovascular exam: Present: distant heart sounds, +S1, +S2. Absent: diastolic murmur, gallop, rubs, systolic murmur - GI/Abdominal GI/Abdominal exam: Present: normal bowel sounds, soft, no peritoneal signs. Absent: distended, tenderness - Extremities Exam Extremities exam: Present: warm, radial pulses palpable and symmetrical. Absent : calf tenderness, cyanotic, pedal edema - Neurological Exam Neurological exam: Present: alert, oriented X3, no focal deficits. Absent: pronater drift, facial droop, speech deficit - Skin Skin exam: Present: dry, intact Internal Medicine: Result - Labs CBC & Chem 7: 08/15/17 03:40 08/16/17 06:29 Labs: BMP 08/16/17 06:29 Sodium 129 L Potassium 4.9 Chloride 87 L Carbon Dioxide 39 H BUN 25 H Creatinine 0.47 L Glucose 86 Calcium 8.4 L - ABG Interpretation ABG results: ABG ABG pH 7.33 pH Units (7.32-7.45) 08/11/17 17:06 ABG pCO2 100 mmHg (35-45) H* D 08/11/17 17:06 ABG pO2 70 mmHg (85-104) L D 08/11/17 17:06 ABG O2 Saturation 91 % (95-98) L 08/11/17 17:06 PT/INR, D-dimer PT 17.0 Seconds (9.4-12.1) H 08/15/17 03:40
[2017-08-16] MEDS: predniSONE 20 MG TABLET PO SCH (09:31)
[2017-08-16] MEDS: Aspirin Enteric Coated 81 MG Tablet PO SCH (09:31)
[2017-08-16] MEDS: Furosemide 20 MG TABLET PO SCH (09:31)
[2017-08-16] MEDS: Doxycycline 100 MG CAPSULE PO SCH ×2 (09:31→20:40)
[2017-08-16] MEDS: Metoprolol XL (24 HR) Succ 50 MG TAB.ER.24H PO SCH (09:31)
[2017-08-17 05:54] LABS: INR 1.4; Prothrombin Time 14.9 Seconds (9.4-12.1)
[2017-08-17 06:08] LABS: BUN/Creatinine Ratio 48 (6-26); Blood Urea Nitrogen 21 mg/dL (8-23); Calcium 8.2 mg/dL (8.6-10.3); Carbon Dioxide 37 mEq/L (23-29); Chloride 87 mEq/L (98-107); Glucose 79 mg/dL (70-105); Osmolality,Calculated 268 (280-300); Potassium 4.6 mEq/L (3.5-5.1); Sodium 128 mEq/L (136-145); eGFR For African Americans > 60 (> 60); eGFR For Non-African Americans > 60 (> 60)
--- NOTE | 2017-08-17 07:31 | Internal Med Progress Note ---
<Nabor Baig - Last Filed: 08/17/17 15:48> Date of Encounter: 08/17/17 - Time Spent With Patient Total time spent is greater than 50% in coordination of care (as documented) at patient's floor/unit and/or counseling patient: - Constitutional Vitals: Temp Pulse Resp BP Pulse Ox 98.3 F 109 18 92/54 96 08/17/17 11:15 08/17/17 11:15 08/17/17 11:37 08/17/17 07:45 08/17/17 11:37 Internal Medicine: Result - Labs CBC & Chem 7: 08/15/17 03:40 08/17/17 04:46 Labs: BMP 08/17/17 04:46 Sodium 128 L Potassium 4.6 Chloride 87 L Carbon Dioxide 37 H BUN 21 Creatinine 0.44 L Glucose 79 Calcium 8.2 L - ABG Interpretation ABG results: ABG ABG pH 7.33 pH Units (7.32-7.45) 08/11/17 17:06 ABG pCO2 100 mmHg (35-45) H* D 08/11/17 17:06 ABG pO2 70 mmHg (85-104) L D 08/11/17 17:06 ABG O2 Saturation 91 % (95-98) L 08/11/17 17:06 PT/INR, D-dimer PT 14.9 Seconds (9.4-12.1) H 08/17/17 04:46 Consult Discharge Plan - Plan Referrals: Steven Ohara DO [Primary Care Provider] - 08/24/17 12:00 pm Eusebio Watson DO [Partnered Physician] - (office will call patient at home with follow up appointment) - Attending Attestation I examined this patient 08/17, and my medical decision-making was reviewed with the Resident Physician. I agree with the documented findings, disposition and treatment plan as described except to the extent set forth below. Seen and evaluated at the bedside She is admitted and being managed for acute CHFrEF, acute hypercapneic and hypoxic respiratory failure secondary to CHFE, COPDE, NEwe onset Afib with RVR , CMP She was managed conservatively in the ICU and has made significant improvement This morning, she complained of increased leg swelling and pain increased weight. Vital signs refer to borderline low blood pressure. Objectively, it is difficult to tell if her measurements have been accurate. However, she has a negative output of 3.6 L. Physical exam: VSS, not in distress, AAOX3, no gross neuro deficits, chest is CTAB, HS S1, S2, rate controlled, abdomen is soft, trace bilateral piting pedal edema Labs and Imaging reviewed: Na slightly improved, creatinine is within normal limit, metabolic alkalosis is improving. Low potassium. INR is 1.4 Plan: Status post left heart catheterization today with no significant obstructive findings. Her cardiomyopathy is possibly tachycardia induced uncontrolled A. fib. Continue current care, lasix po, qualified for BIPAP, SW consulted for BIPAP at home, began to bridge Lovenox with warfarin, pharmacy to dose.. Rest as in resident physician's documentation <Viral Franco - Last Filed: 08/17/17 15:58> Date of Encounter: 08/17/17 Time of Encounter: 08:15 - Assessment and plan (1) Acute exacerbation of chronic obstructive airways disease Current Visit: Yes Status: Acute Assessment and plan: Improved. Continue weaning oxygen as appropriate. Currently 4L BIPAP as tolerated. Continue Duoneb, prednisone, diuresis. Continue Doxycycline day #6 Overnight BiPAP qualification (2) CHF (congestive heart failure) Current Visit: Yes Status: Acute Assessment and plan: Patient requires 2-4L of oxygen via NC. She is tolerating BIPAP. Uncontrolled ventricular rate in the context of new onset atrial fibrillation. Likely triggered by underlying COPD. Echo demonstrates LVEF = 35-40% with global LV systolic dysfunction, severe pulmonary hypertension, biatrial enlargement. hypokinetic wall motion noted at multiple areas. Continue Lasix 20 mg IV twice a day as she is Lasix naive. Monitor and adjust for intake and output, daily weights. She is able to tolerate being supine now. 08/17 LHC today shows moderate two-vessel disease, and no PCI or intervention as given Cardiology recommends optimal medical management Currently on aspirin, beta walter, BRINDA inhibitor Blood pressure cannot tolerate significant addition of medications I will high dose statin Qualifiers: Heart failure type: systolic Heart failure chronicity: acute on chronic Qualified Code(s): I50.23 - Acute on chronic systolic (congestive) heart failure (3) New onset a-fib Current Visit: Yes Status: Acute Assessment and plan: No longer in A. fib. No overnight events. INR = 1.6 today [facility] when stable/ able to lie supine. Continue with Lovenox (4) Cardiomyopathy Current Visit: Yes Status: Acute Assessment and plan: Cardiomyopathy noted on TTE, LVEF 35-40%. Plans as above Qualifiers: Cardiomyopathy type: unspecified Qualified Code(s): I42.9 - Cardiomyopathy , unspecified (5) DVT prophylaxis Current Visit: Yes Status: Acute Assessment and plan: Anticoagulated with Coumadin which was held for procedure in favor of Lovenox We will start Coumadin again - Time Spent With Patient Total time spent is greater than 50% in coordination of care (as documented) at patient's floor/unit and/or counseling patient: - Subjective Interval history: The patient is resting comfortably in bed examination. She says that she is feeling significantly better than she was, feels like she is almost back to baseline. She does have some concerns that she seems to have gained weight since she arrived at the hospital which seems contradictory since she has been diuresing since she has been here. She insists on having a left heart catheterization today. - Constitutional Vitals: Temp Pulse Resp BP Pulse Ox 98.2 F 77 14 92/54 99 08/17/17 06:55 08/17/17 06:55 08/17/17 06:55 08/17/17 06:55 08/17/17 06:55 General appearance: Present: cachectic, mild distress, A&O X 3, pleasant, no acute distress, answers questions appropriately Exam: Gen: Vitals noted. No acute distress. Frail-appearing HEENT: PERRL/EOMI, oropharynx clear, Normocephalic, atraumatic Neck: Supple. No adenopathy. Cardiac: RRR, no murmur, +S1/S2 Pulmonary: Diffuse wet crackles heard on examination Abdomen: soft, nontender, BS noted, no guarding Back: Nontender throughout. MSK: ROM intact, no joint swelling noted Extremities: Trace bilateral lower extremity edema, nontender, no cyanosis or clubbing Neuro: A&Ox3, moves all extremities, no focal deficits Psych: Appropriate mood and behavior Internal Medicine: Result - Labs CBC & Chem 7: 08/15/17 03:40 08/17/17 04:46 Labs: BMP 08/17/17 04:46 Sodium 128 L Potassium 4.6 Chloride 87 L Carbon Dioxide 37 H BUN 21 Creatinine 0.44 L Glucose 79 Calcium 8.2 L - ABG Interpretation ABG results: ABG ABG pH 7.33 pH Units (7.32-7.45) 08/11/17 17:06 ABG pCO2 100 mmHg (35-45) H* D 08/11/17 17:06 ABG pO2 70 mmHg (85-104) L D 08/11/17 17:06 ABG O2 Saturation 91 % (95-98) L 08/11/17 17:06 PT/INR, D-dimer PT 14.9 Seconds (9.4-12.1) H 08/17/17 04:46
[2017-08-17] MEDS: Furosemide 20 MG TABLET PO SCH (07:44)
[2017-08-17] MEDS: predniSONE 20 MG TABLET PO SCH (07:44)
[2017-08-17] MEDS: Aspirin Enteric Coated 81 MG Tablet PO SCH (07:44)
[2017-08-17] MEDS: Doxycycline 100 MG CAPSULE PO SCH ×2 (07:44→22:31)
[2017-08-17] MEDS: Metoprolol XL (24 HR) Succ 50 MG TAB.ER.24H PO SCH (07:44)
[2017-08-17] MEDS: Budesonide/Formoterol 160/4.5 MDI IH SCH ×2 (07:54→20:12)
[2017-08-17] MEDS: Tiotropium 18 MCG inhalation IH SCH (07:54)
--- NOTE | 2017-08-17 10:00 | Event Note ---
Date of Encounter: 08/17/17 Time of Encounter: 10:00 - Cardiology Event Note Selected Entries 08/17/17 06:55 08/17/17 07:55 Temperature 98.2 F Pulse Rate 77 Respiratory Rate 14 Blood Pressure 92/54 O2 Sat by Pulse Oximetry 97 Oxygen Flow Rate (LPM) 3 Oxygen Delivery Method Nasal Cannula Laboratory Tests 08/17/17 08/17/17 04:46 04:46 INR 1.4 Creatinine 0.44 L Est GFR (Non-Af Amer) > 60 Patient able to tolerate laying flat today upon exam wearing nasal cannula oxygen 3 L, utilizes home O2 2 L at home. Chest pain-free. Current INR stable at 1.4. Discussed and reviewed with Dr. Mckeon, plan for catheterization today. Further recommendations pending catheterization. All questions answered.
[2017-08-17] MEDS ORDERED: 0.9 % Sodium Chloride 1,000 ML ONE ×2 (13:02→13:29)
[2017-08-17] MEDS ORDERED: Heparin 1,000 UNITS/500 mL 500 ML ONE (13:02)
[2017-08-17] MEDS ORDERED: Nitroglycerin 1,000 MCG/10 ML VIAL IV ONE (13:02)
[2017-08-17] MEDS ORDERED: ISOVUE-370 200 ML INFUS..BTL IV ONE (13:02)
[2017-08-17] MEDS ORDERED: *HR* Heparin 10,000 UNIT/10 ML VIAL ONE (13:02)
[2017-08-17] MEDS ORDERED: *HR* FentaNYL (PF) 100 MCG/2 ML VIAL ONE (13:33)
[2017-08-17] MEDS ORDERED: *HR* Midazolam HCl 2 MG/2 ML VIAL ONE (13:33)
--- NOTE | 2017-08-17 14:38 | Pre-Sedation Evaluation ---
Pre-sedation evaluation - Pre-sedation checklist Date of procedure: 08/17/17 Procedure: C Recent Vitals: Last Vital Signs Temp 98.3 F 08/17/17 11:15 Pulse 109 08/17/17 11:15 Resp 18 08/17/17 11:37 BP 92/54 08/17/17 07:45 Pulse Ox 96 08/17/17 11:37 H&P (including ROS) documented in medical record: Yes Dietary Status: NPO after Midnight Dentition: No loose teeth or bridges, dentures removed ASA Classification *see protocol: CLASS II-Mild systemic disease
--- NOTE | 2017-08-17 15:06 | Invasive Diagnostic Lab Proc ---
Name: Giulia Munoz Date of Study: 08/17/2017 Date: 1940 Ht: 61.0in Medical Record#: [id number] Age: 76 Wt: 123.46lb Gender: Female BSA: 1.54 Order #: [id number] BMI: 23.31 Physicians Procedure Physician: Mandy Mckeon MD Referring MD: Referring MD: Staff Name Position Time In XiomyMary Grace dooley RN Monitor 01:30 PM Sarah Simpson RN Carpenter'S Assistant 01:30 PM Re Colon RN Carpenter'S Assistant 01:30 PM Elizabeth Harrison RT (R) Scrub 01:30 PM Indications Indication Cardiomyopathy Procedures Performed Procedure CORONARY ARTERY ANGIO S&I Pre-Procedure Checklist Informed consent is complete signed and on chart. H&P is on chart. ID band is on and ID verified with patient. Patient NPO for procedure The procedure was described for the patient and questions were answered. Blood Pressure: 112/70 ECG is on chart. Rhythm: Sinus Tachycardia Plan of Care Patient will tolerate the procedure without complications. Adequate level of comfort will be maintained. Hemodynamics will remain stable Patient will recover from procedure without complications. Respiratory function will be maintained. Cardiac rhythm will remain stable. Patient temperature will be maintained. Patient and/or family have verbalized understanding of the procedure. Patient Education Chief Complaint/Reason for Test: Cardiac Cath Developmental Category: Geriatric (65+ years) Developmentally Appropriate for Age: Yes Learning Barriers: None Education Needs: Procedure Education Method: Verbal Information Taught: Cardiac Cath Educational Evaluation: Able to repeat information Intravenous Access Time IV Size Location DC'd Fluid/Drip Rate Units RN 10:29 AM 18g 1 04/16" Patent On Arrival Lt Antecubital Re Colon RN Allergies codeine CODIENE No Known Allergies Vital Signs Time BP (mmHg) HR (bpm) O2 Sat. RR (bpm) LOC 10:29 AM 112 / 70 117 100 % 18 5 = Fully awake and oriented or at pre-proc level 01:31 PM / % 5 = Fully awake and oriented or at pre-proc level 01:31 PM / % 4 = Oriented but drowsy 01:46 PM / % 4 = Oriented but drowsy 01:33 PM 138 / 68 70 94 % 01:37 PM 137 / 91 83 99 % 01:42 PM 114 / 60 88 91 % 01:47 PM 105 / 60 71 90 % 01:52 PM 107 / 51 67 93 % 01:57 PM 107 / 51 72 91 % 02:10 PM 127 / 71 66 99 % 02:48 PM 119 / 67 63 92 % 18 4 = Oriented but drowsy Procedural Medications Time Medication Dose Units Method Given By 01:31 PM Oxygen 4 L/min nasal cannula Re Colon RN 01:34 PM Versed 1 mg Intravenous Sarah Simpson RN 01:34 PM Fentanyl 50 mcg Intravenous Sarah Simpson RN 01:44 PM Lidocaine 2% 10 ml Subcutaneous Mandy Mckeon MD 01:55 PM Oxygen 6 L/min nasal cannula Sarah Simpson RN ASA Classification: CLASS II- Mild systemic disease (i.e. well-controlled diabetes, hypertension, asthma, cigarette smoking) Dasha Score Preprocedure Postprocedure Activity 2- Moves 4 extremities sustained head lift Activity 2- Moves 4 extremities sustained head lift Circulation 2- SBP +/= 20 points of pre-anesthetic level Circulation 2- SBP +/= 20 points of pre-anesthetic level Consciousness 2- Awake and alert oriented x 3 Consciousness 2- Awake and alert oriented x 3 O2 Saturation 2- Able to maintain O2 satruation of 92% on room air O2 Saturation 2- Able to maintain O2 satruation of 92% on room air Respiratory 2- Able to deep breathe and cough well Respiratory 2- Able to deep breathe and cough well Total Score 10 Total Score 10 Contrast Agent: Isovue Diagnostic Contrast: 90 ml Total Contrast: 90 ml Fluoro Dose: 147 mGy Procedure Log Time Note Enter By 01:29 PM Pt arrived [facility] tender [facility] 13[email or web address] PM Mary Grace Lara RN Position: Monitor Time in: 13:30 mm 01:30 PM Sarah Simpson RN Position: Carpenter'S Assistant Time in: 13:30 [email or web address] 01:30 PM Re Colon RN Position: Carpenter'S Assistant Time in: 13:30 mm 01:30 PM Elizabeth Harrison RT (R) Position: Scrub Time in: 13:30 tsoummers 01:30 PM Patient charges- Angio tray pack, Navilyst 3mm J, Pulse Oximetry and ACIST tubing and transducer tsmm 01:30 PM Case Delayed No tsoummers 01:30 PM Hair removed from procedure site in holding area using clippers. Bilateral groin prepped with Chloraprep by Re Colon RN, then patient was draped. Skin intact. :30 PM Physican paged/called 13:30. :30 PM Physican responded and notified patient is ready 13:30 oumm:30 PM Physician arrived 13:30 oumm:30 PM Meet and greet completed : PM Sign in performed according to hospital policy. : PM Procedure start 13:oumm PM Time: : Oxygen on at 4 L/min per nasal cannula by Re Colon RN PM Time: 13:31 Patient comfortable and pain free: Yes PM Time: 13:31LOC: 5 = Fully awake and oriented or at pre-proc level mm: PM Clinical Presentation: No symptoms, no angina : PM CathStat :32 PM Vitals capture started with the following parameters, Patient=Adult, Interval=5 min, Initial Avrhmsis=570 mmHg, Deflation Rate=5 mmHg, Cuff placed on Right Arm 01:32 PM Recorded ECG: HR=70 Condition=Condition 1 01:33 PM HR=70 bpm, BYXC=926/68 mmhg, SpO2=94.0 % 01:33 PM ASA Class CLASS II- Mild systemic disease (i.e. well-controlled diabetes, hypertension, asthma, cigarette smoking) :34 PM Time: 13:34 Versed 1 mg Intravenous Given by Sarah Simpson RN ou:34 PM Time: 13:34 Fentanyl 50 mcg Intravenous Given by Sarah Simpson RN [email or web address] 01:37 PM HR=83 bpm, WNQY=672/91 mmhg, SpO2=99.0 % 01:38 PM Pressure channel 1 zeroed. 01:40 PM Pressure channel 1 zeroed. 01:42 PM HR=88 bpm, DXPC=887/60 mmhg, SpO2=91.0 %, Comment=NSR 01:43 PM Clinical Presentation: No symptoms, no angina mm43 PM Time out performed according to hospital policy tsoummers 01:44 PM Time: 13:44 10 ml Lidocaine 2% to right groin Subcutaneous Given by Mandy Mckeon MD 01:45 PM Micro-Introducer Kit utilized for sheath placement :45 PM Access obtained by percutaneous puncture. 6Fr 10cm Terumo [place] sheath placed in right Femoral artery. [id number] mm:46 PM 0.035 145cm Navilyst 3mmJ wire [id number] :46 PM 5Fr FR 4 catheter inserted over the wire [facility] :46 PM Time: 13:31 Patient comfortable and pain free: Yes :46 PM Time: 13:31LOC: 4 = Oriented but drowsy mm 01:47 PM HR=71 bpm, RAFM=005/60 mmhg, SpO2=90.0 % 01:47 PM J wire removed mm 01:48 PM RCA angiography performed in multiple views. 01:48 PM Recorded Pressure: Ao, HR=71, Condition=Condition 1 (Aorta) Ao 90/59/75 01:49 PM 0.035 260cm Navilyst 3mmJ wire [id number] oumm 01:49 PM Catheter removed mm 01:50 PM Lesion found in Mid RCA. Pre Stenosis: 50 Pre VILLA Flow: 01:50 PM Right Coronary, Right Posterior Descending Arteries with Right Posterolateral and Acute Marginal branches with 50 % stenosis. If graft is supplying this area, 0 % stenosis mm 01:50 PM 5Fr FL 4 catheter inserted over the wire [facility] mm 01:50 PM long J wire removed 01:50 PM LCA angiography performed in multiple views. 01:51 PM Recorded Pressure: Ao, HR=72, Condition=Condition 1 (Aorta) Ao 91/61/74 01:52 PM HR=67 bpm, DVCY=915/51 mmhg, SpO2=93.0 %, Comment=NSR 01:54 PM Catheter removed mm 01:55 PM Time: 13:55 Oxygen on at 6 L/min per nasal cannula by Sarah Simpson RN ezekiel 01:57 PM Procedure completed at 13:57 oummers 01:57 PM Coronary Dominance: right tsoumm 01:57 PM HR=72 bpm, TPIX=566/51 mmhg, SpO2=91.0 %, Comment=NSR 01:58 PM Sign out completed: Radiation Dose 146.84 mGy Fluoro Time: 3.2 Isovue 370 - 200ml contrast 89.7 ml given by Mandy Mckeon MD. Complications: NoneCardiac Rehab Consult needed: NoConfirmed administered medications: Yes tsoummers 01:58 PM Isovue 370 - 200ml,1 Bottle(s) used. tsoumm 01:58 PM Sheath left in place to be pulled on floor/holding area tsoummers 01:58 PM Estimated Blood Loss: minimal tsoummers 01:58 PM Post ECG NSR tsoummers 01:58 PM Post Blood Pressure 107/51 tsoummers 01:58 PM Information taught Cardiac Cath tsoumm 01:58 PM Education needs Plan of Care, Procedure, and Responsibilities of Patient in Care tsoummers 01:58 PM Learning barriers :None oumm 01:58 PM Education Methods Verbal oumm 01:58 PM Education evaluation Able to repeat information tsoumm 01:58 PM Site status No bleeding/hematoma - Rt Groin as reported by Elizabeth Harrison RT (R) at 13:58 tsoummers 01:58 PM Plavix, Effient or Brilinta given No tsoummers 01:58 PM Delay to floor No, waiting to pull sheath tsoummers 01:59 PM Family placed in consult room. tsoummers 01:59 PM Complications: None tsoummers 01:59 PM Fluoro Time: 3.2 tsoummers 01:59 PM Isovue 370 - 200ml contrast 89.[address] Mckeon. tsoummers 01:59 PM Radiation Dose 146.84 mGy tsoummers 02:00 PM Sheath to be pulled in holding room tsoummers 02:00 PM Opsite applied tsoummers 02:01 PM Time: 13:46 Patient comfortable and pain free: Yes tsoummers 02:01 PM Time: 13:46LOC: 4 = Oriented but drowsy tsoummers 02:02 PM Report given to Adri CASILLAS 2N Room #09. 14:02 Pt taken to HR for sheath pull then [facility] PM What is the NYHA Class? Class 2 tsoummers 02:06 PM Did you address VILLA flow and Dominance? Yes tsoummers 02:14 PM Lesion found in Mid LAD. Pre Stenosis: 60 Pre VILLA Flow: tsoummers 02:14 PM Lesion found in LMCA. Pre Stenosis: 40 Pre VILLA Flow: tsoummers 02:14 PM Lesion found in LMCA. Pre Stenosis: 20 Pre VILLA Flow: tsoummers 02:15 PM Left Main Coronary Artery with 40% stenosis tsoummers 02:15 PM Mid/Distal Left Anterior Descending Coronary Artery and diagonal branches with 60% stenosis. If graft is supplying this area, 0 % stenosis tsoummers 02:46 PM Arterial sheath pulled using manual compression and V+ Pad for 15 minutes by Kaley Kowalski 02:47 PM Site status No bleeding/hematoma - Rt Groin as reported by Kaley Kowalski RT at 14:47 kkjason 02:47 PM Opsite applied guera Complications Complication None Hemodynamics Pressures Site Systolic/A Wave Diastolic/V Wave Mean AO 90 59 75 AO 91 61 74 Post Procedure Information Blood Pressure: 107/51 mmHg Rhythm: NSR Post procedural instructions were given Site Checks Time Location Status Staff Sheath In? Note 01:58 PM Rt Groin No bleeding/hematoma Elizabeth Harrison RT (R) 02:10 PM Rt Groin No bleeding/ No Hematoma Elizabeth Harrison RT (R) 02:47 PM Rt Groin No bleeding/hematoma Kaley Kowalski RT 02:48 PM Pulses Updated by RT Jagdish De La Torre) on 08/17/2017 2:57:10 PM electronically signed on 08/17/2017 2:57:49 PM with status of Final
--- NOTE | 2017-08-17 15:27 | Event Note ---
Date of Encounter: 08/17/17 Time of Encounter: 15:30 - Cardiology Event Note Per discussion with Dr. Mckeon, [facility] should no significant lesions. No intervention warranted. Cardiology will s/o, re-consult PRN. F/u arranged.
[2017-08-17] MEDS ORDERED: Warfarin perPT PO PRN (18:00)
[2017-08-17] MEDS ORDERED: *HR* Warfarin 5 MG TABLET PO ONE (18:00)
[2017-08-18] MEDS: *HR* Enoxaparin 30 MG/0.3 ML SYRINGE SQ SCH ×2 (05:00→16:57)
[2017-08-18 05:23] LABS: Basophils % 0.1 %; Eosinophils # 0.2 K/mcL (0.0-0.6); Hematocrit 33.8 % (35.3-44.9); Immature Granulocytes % 0.2 % (0-4); Lymphocytes # 1.9 K/mcL (0.6-4.6); Lymphocytes % 21.1 %; Mean Corpuscular HGB Conc 32.5 g/dL (31.6-35.5); Mean Corpuscular Hemoglobin 31.9 pg (28.0-33.3); Monocytes # 1.1 K/mcL (0.0-1.3); Monocytes % 12.4 %; Neutrophils # 5.7 K/mcL (1.6-8.9); Platelet Count 150 K/mcL (140-400); Red Blood Count 3.45 M/mcL (3.82-4.97); Red Cell Distribution Width 13.4 % (11.5-14.5); Segmented Neutrophils % 64.2 %
[2017-08-18 05:31] LABS: BUN/Creatinine Ratio 48 (6-26); Blood Urea Nitrogen 22 mg/dL (8-23); Calcium 8.2 mg/dL (8.6-10.3); Carbon Dioxide 35 mEq/L (23-29); Chloride 97 mEq/L (98-107); Glucose 81 mg/dL (70-105); Osmolality,Calculated 270 (280-300); Potassium 4.5 mEq/L (3.5-5.1); Sodium 129 mEq/L (136-145); eGFR For African Americans > 60 (> 60); eGFR For Non-African Americans > 60 (> 60)
--- NOTE | 2017-08-18 07:18 | Discharge Summary ---
<Viral Franco - Last Filed: 08/18/17 11:10> - NOTES TO OUTPATIENT PROVIDER Notes to Outpatient Provider: The patient was seen and treated at [facility] for increased fluid overload. She was treated with Lasix and optimal medical management, left heart catheterization did not demonstrate any correctable obstruction. Tachycardia has been rate controlled. She will require daily weights and follow up on heart rate as well as fluid overload. She also had an exacerbation of COPD which has fully been treated at this time. Her for BiPAP has been written, will need renewal in 3 months. Date of Encounter: 08/18/17 Time of Encounter: 07:40 - Discharge Diagnosis (1) Acute exacerbation of chronic obstructive airways disease Priority: Primary Status: Acute Assessment and Plan: Improved. Continue weaning oxygen as appropriate. Currently 4L BIPAP as tolerated. Finished treatment for doxycycline, 1 day of prednisone left (2) CHF (congestive heart failure) Priority: Primary Status: Acute Assessment and Plan: [facility] shows moderate two-vessel disease, and no PCI or intervention as given Cardiology recommends optimal medical management Currently on aspirin, beta walter, BRINDA inhibitor Blood pressure cannot tolerate significant addition of medications Qualifiers: Heart failure type: systolic Heart failure chronicity: acute on chronic Qualified Code(s): I50.23 - Acute on chronic systolic (congestive) heart failure (3) New onset a-fib Priority: Secondary Status: Acute Assessment and Plan: No longer in A. fib. Transitioning to Coumadin, management per pharmacy (4) Cardiomyopathy Priority: Secondary Status: Acute Assessment and Plan: Cardiomyopathy noted on TTE, LVEF 35-40%. Plans as above Qualifiers: Cardiomyopathy type: unspecified Qualified Code(s): I42.9 - Cardiomyopathy , unspecified Hospital course: Ms. Munoz is a 76 year old female with history of COPD on 2 L home O2, CHF who presented to the ED for worsening shortness of breath and bilateral lower extremity edema. Other she still with bilateral lower extremity swelling in the past, it had been getting progressively worse for approximately one week. In addition of this, she said that she was unable to lie flat, and had paroxysmal nocturnal dyspnea as well as increased weight each day. In the ED she was found to be hypoxic and required increased oxygen in order to saturate appropriately, and ABG at that time did also show CO2 elevation. She was also found to have rapid ventricular response which was apparently possibly new. She was admitted to the hospital for acute on chronic respiratory failure with hypoxia and hypercapnia, acute exacerbation of COPD as well as presumed heart failure. She did have an echocardiogram upon admission which demonstrated a new cardiomyopathy with a left ventricular ejection fraction 35-40% and global left ventricular systolic dysfunction. In addition to this, the echocardiogram did demonstrate severe pulmonary hypertension which is likely secondary to current lung function. Cardiology was consulted for ischemic workup, and eventually were able to do a left heart catheterization which demonstrated moderate 2 vessel disease without any location that would be amenable to intervention at this time, and cardiology did recommend optimal medication management. It is most likely that the patient's primary myopathy is secondary to prolonged tachycardia, and management of tachycardia will likely improve cardiac function. Over the course of her stay we were able to improve the clinical status of fluid overload, and the patient was able to breathe more easily. In addition of this, she became rate controlled on metoprolol, and Coumadin therapy was initiated. The patient will be discharged to swing bed for usp during recovery period. Discharge discussed with: patient, nurse, social work, case management, career development consultant - Time Spent with Patient Total time spent providing and/or coordinating discharge services: - Discharge Medications Home Medications: Albuterol Sulfate [Ventolin Hfa] 2 puff IH Q4H PRN 08/09/17 [History] Aspirin [Lo-Dose Aspirin EC] 81 mg PO DAILY 08/09/17 [History] Ipratropium/Albuterol Neb [Duoneb] 3 ml IH Q6HR 08/09/17 [History] Sertraline [Zoloft] 25 mg PO DAILY 08/09/17 [History] Budesonide/Formoterol 160/4.5 [Symbicort 160/4.5] 2 puff IH BIDR inhaler [Rx] Furosemide [Lasix] 20 mg PO DAILY tablet 08/18/17 [Rx] Lisinopril [Zestril] 5 mg PO DAILY tablet 08/18/17 [Rx] Metoprolol XL (24 HR) Succ [Toprol Xl] 50 mg PO DAILY tab.er.24h 08/18/17 [Rx] Potassium Chloride 40 meq PO DAILY PRN tab.er.prt 08/18/17 [Rx] Tiotropium [Spiriva] 18 mcg IH DAILYR inh 08/18/17 [Rx] Warfarin perPT [Coumadin perPT] 1 each PO DAILY@1800 PRN each 08/18/17 [Rx] predniSONE [PredniSONE] 40 mg PO DAILY 1 Days tablet 08/18/17 [Rx] Allergies/Adverse Reactions: 3 Allergy/AdvReac Type Severity Reaction Status Date / Time codeine Allergy Vomiting Verified 08/09/17 17:03 Date of admission: 08/10/17 12:31 Primary care physician: Chester Harris Consults: 08/10/17 16:35 Consult to Nurse Navigator [CONS] Routine Comment: New CHF; COPD exac; Afib with RVR 08/14/17 11:17 Consult to Cardiology [CONS] Routine Comment: Consulting Provider: Cardiology Clare Reason for Consult: Cardiomyopathy on TTE with LVEF 35-40% and new onset A. fib Call Completed: Yes 08/14/17 17:41 Consult to Physical Therapy [CONS] Routine Comment: Evaluate, develop and implement POC Reason for Consult: weakness, from home alone Does patient have active BEDREST order?: No Is patient medically & hemodynamically stable?: Yes Patient assessed for mobility or mobilized this visit?: No OT [Consult to Occupational Therapy] [CONS] Routine Comment: Evaluate, develop and implement POC Reason for Consult: weakness, from home alone Does patient have active BEDREST order?: No Is patient medically & hemodynamically stable?: Yes Patient assessed for mobility or mobilized this visit?: No 08/17/17 15:33 Consult to Contact Lens Assistant [CONS] Routine Reason for SW Consult: PT/Ot recommends swing bed, pt. from home alone Discharging clinician: Viral Franco Anticipated date of discharge: 08/18/17 - Constitutional Vitals: Temp Pulse Resp BP Pulse Ox 97.6 F 66 19 106/61 98 08/18/17 06:52 08/18/17 06:52 08/18/17 06:52 08/18/17 06:52 08/18/17 06:52 General appearance: Present: cachectic, mild distress, A&O X 3, pleasant, no acute distress, answers questions appropriately Exam: Gen: Vitals noted. No acute distress. Frail-appearing HEENT: PERRL/EOMI, oropharynx clear, Normocephalic, atraumatic Neck: Supple. No adenopathy. Cardiac: RRR, no murmur, +S1/S2 Pulmonary: Significantly improved compared to yesterday with only a faint crackles heard in the bases Abdomen: soft, nontender, BS noted, no guarding MSK: ROM intact, no joint swelling noted Extremities: Trace bilateral lower extremity edema, nontender, no cyanosis or clubbing Neuro: A&Ox3, moves all extremities, no focal deficits Psych: Appropriate mood and behavior - Patient Status Disposition: Transfer SNF Condition: Fair Functional capacity at discharge: wheelchair bound Overall status at discharge: patient is progressing back to baseline - Discharge Instructions Follow Up With: Steven Ohara DO [Primary Care Provider] - 08/24/17 12:00 pm Eusebio Watson DO [Partnered Physician] - (office will call patient at home with follow up appointment) - Diet and Activity Activity: as per physical therapy, increase activity as tolerated Diet: low salt diet <Nabor Baig T - Last Filed: 08/18/17 12:51> Orders not resulted at time of discharge: Pending orders 08/19/17 04:00 PT/INR [Prothrombin Time INR] [COAG] AM 0400 08/20/17 04:00 PT/INR [Prothrombin Time INR] [COAG] AM 0400 08/21/17 04:00 PT/INR [Prothrombin Time INR] [COAG] AM 0400 Date of Encounter: 08/18/17 - Discharge Diagnosis (1) Acute exacerbation of chronic obstructive airways disease Status: Acute (2) CHF (congestive heart failure) Status: Acute Qualifiers: Heart failure type: systolic Heart failure chronicity: acute on chronic Qualified Code(s): I50.23 - Acute on chronic systolic (congestive) heart failure (3) New onset a-fib Status: Acute (4) Cardiomyopathy Status: Acute Qualifiers: Cardiomyopathy type: unspecified Qualified Code(s): I42.9 - Cardiomyopathy , unspecified Hospital course: Ms. Munoz is a 76 year old female - Time Spent with Patient Total time spent providing and/or coordinating discharge services: Greater than 30 minutes Date of admission: 08/10/17 12:31 Primary care physician: Chester Harris Consults: 08/10/17 16:35 Consult to Nurse Navigator [CONS] Routine Comment: New CHF; COPD exac; Afib with RVR 08/14/17 11:17 Consult to Cardiology [CONS] Routine Comment: Consulting Provider: Cardiology Clare Reason for Consult: Cardiomyopathy on TTE with LVEF 35-40% and new onset A. fib Call Completed: Yes 08/14/17 17:41 Consult to Physical Therapy [CONS] Routine Comment: Evaluate, develop and implement POC Reason for Consult: weakness, from home alone Does patient have active BEDREST order?: No Is patient medically & hemodynamically stable?: Yes Patient assessed for mobility or mobilized this visit?: No OT [Consult to Occupational Therapy] [CONS] Routine Comment: Evaluate, develop and implement POC Reason for Consult: weakness, from home alone Does patient have active BEDREST order?: No Is patient medically & hemodynamically stable?: Yes Patient assessed for mobility or mobilized this visit?: No 08/17/17 15:33 Consult to Contact Lens Assistant [CONS] Routine Reason for SW Consult: PT/Ot recommends swing bed, pt. from home alone - Constitutional Vitals: Temp Pulse Resp BP Pulse Ox 98.2 F 66 18 109/73 99 08/18/17 11:19 08/18/17 11:19 08/18/17 11:28 08/18/17 11:19 08/18/17 11:28 - Attending Attestation I examined this patient 08/18, and my medical decision-making was reviewed with the Resident Physician. I agree with the documented findings, disposition and treatment plan as described except to the extent set forth below. 76-year-old female admitted and managed for with acute hypoxic and hypercapnic respiratory failure, secondary to new onset atrial fibrillation acute CHF exacerbation, COPD exacerbation, non-ischemic CMP. s/p [facility] with non-obstructive CAD. She has completed her antibiotic course adequately duressesed, improved with BiPAP, Physical exam: VSS< not in distress, AAOX3, no gross neuro deficits, chest is CTAB, HS S1, S2, rate controlled, abdomen is soft, trace bilateral piting pedal edema Labs and Imaging reviewed She is clinically stable to be discharged to the snf for continuation of care. And rehabilitation. She is physically deconditioned. Continue ACPs with, metoprolol, Lasix, warfarin, Spiriva and albuterol when necessary. She has taken 6 days of doxycycline and requires one more day at the facility. She has completed her steroid course. She qualified for BiPAP and is discharged on the same. Management of INR and Lasix adjustment doctor at the facility. Rest of details as in the resident physicians documentation. Addendum entered and electronically signed by Viral Franco DO 08/18/17 11: 13: Additional Instructions Patient intends to go to rehabilitation facility for treatment She should follow daily weights accurately Continue taking medications as prescribed Will likely require follow-up with Coumadin clinic Avoid high salt foods when possible Return to the ED for significant shortness of breath, chest pain, loss of consciousness Call primary care with any questions
[2017-08-18] MEDS: Budesonide/Formoterol 160/4.5 MDI IH SCH (07:46)
[2017-08-18] MEDS: Tiotropium 18 MCG inhalation IH SCH (07:46)
[2017-08-18] MEDS: predniSONE 20 MG TABLET PO SCH (08:18)
[2017-08-18] MEDS: Doxycycline 100 MG CAPSULE PO SCH (08:18)
[2017-08-18] MEDS: Aspirin Enteric Coated 81 MG Tablet PO SCH (08:18)
[2017-08-18] MEDS: Metoprolol XL (24 HR) Succ 50 MG TAB.ER.24H PO SCH (08:18)
[2017-08-18] MEDS: Furosemide 20 MG TABLET PO SCH (08:18)
[2017-08-18] MEDS ORDERED: Furosemide 20 MG/2 ML VIAL IVP ONE (08:34)
--- NOTE | 2017-08-18 10:59 | Physician Discharge Referral ---
Addendum entered and electronically signed by Viral Franco DO 08/18/17 11: 06: Fluid volume status should be assessed daily. Lasix dosing may require daily modification as determined by respiratory and cardiac function. The patient will require strict, accurate daily weights. Original Note: <Viral Franco - Last Filed: 08/18/17 10:56> ExtendedCare Referral Info Provider in Charge: Safia Provider in Charge after Transfer: PCP Institutional Level of Care: Skilled - Diagnosis (1) Acute exacerbation of chronic obstructive airways disease Priority: Primary Status: Acute (2) CHF (congestive heart failure) Priority: Primary Status: Acute (3) New onset a-fib Priority: Secondary Status: Acute (4) Cardiomyopathy Priority: Secondary Status: Acute (5) Volume overload Priority: Secondary Status: Acute Expected Duration of Placement: 1-3 wweeks Prognosis: Fair Aware of Diagnosis: Patient Aware of Prognosis: Patient - Transfer Medications Home Medications: Albuterol Sulfate [Ventolin Hfa] 2 puff IH Q4H PRN 08/09/17 [History] Aspirin [Lo-Dose Aspirin EC] 81 mg PO DAILY 08/09/17 [History] Ipratropium/Albuterol Neb [Duoneb] 3 ml IH Q6HR 08/09/17 [History] Sertraline [Zoloft] 25 mg PO DAILY 08/09/17 [History] Budesonide/Formoterol 160/4.5 [Symbicort 160/4.5] 2 puff IH BIDR inhaler [Rx] Furosemide [Lasix] 20 mg PO DAILY tablet 08/18/17 [Rx] Lisinopril [Zestril] 5 mg PO DAILY tablet 08/18/17 [Rx] Metoprolol XL (24 HR) Succ [Toprol Xl] 50 mg PO DAILY tab.er.24h 08/18/17 [Rx] Potassium Chloride 40 meq PO DAILY PRN tab.er.prt 08/18/17 [Rx] Tiotropium [Spiriva] 18 mcg IH DAILYR inh 08/18/17 [Rx] Warfarin perPT [Coumadin perPT] 1 each PO DAILY@1800 PRN each 08/18/17 [Rx] predniSONE [PredniSONE] 40 mg PO DAILY 1 Days tablet 08/18/17 [Rx] Allergies/Adverse Reactions: 3 Allergy/AdvReac Type Severity Reaction Status Date / Time codeine Allergy Vomiting Verified 08/09/17 17:03 - Respiratory Orders Oxygen / L per min (Titrate to SPO2 88-92) Smoking Cessation: Smoking cessation has been advised. For more information, call the [employer] Quit Line at 0-226-UEDENOW. - Lab Orders Lab Orders: Other (include drug levels w/frequency) (Management of PT/INR in coumadin pt per facility protocols) - Ancillary Orders May use pressure relief devices daily prn - Advance Directives Living Will: No Power of Stone Polisher Machine: No Code Status: Full Code - Mobility Orders Chair - Rehabiliation Orders Rehab Potential: Good Rehab Orders: ROM Exercises, Evaluation for Physical Therapy, Evaluation for Occupational Therapy - Diet Orders No Added Salt (JESSICA) CERTIFICATION: I certify that the transfer of the above named patient to an Extended Care Facility is necessary for the continuing treatment of the diagnosis listed. The above information is true and accurate reflection of patient's current condition. Confidential - Redisclosure prohibited without a patient's written consent. <Nabor Baig - Last Filed: 08/18/17 12:43> - Respiratory Orders Smoking Cessation: Smoking cessation has been advised. For more information, call the [employer]uit Line at 7-325-QWHQ-NOW. CERTIFICATION: I certify that the transfer of the above named patient to an Extended Care Facility is necessary for the continuing treatment of the diagnosis listed. The above information is true and accurate reflection of patient's current condition. Confidential - Redisclosure prohibited without a patient's written consent.
[2017-08-18 16:13] VITALS: BP 109/56
== END 2017-08-18 18:25 | DRG 286 ==
LOC: 2NENU 14:14 → EMEROO 14:14 → 2NENU 18:00 → SUATTDRO 08-10 12:31 → ICNU 08-11 15:55 → 2NNU 08-14 14:32
PROVIDERS: ADMIT Hospitalist; ATTEND Internal Medicine

== ENCOUNTER 2017-08-27 08:15 | Inpatient (IN) ==
[2017-08-27] MEDS ORDERED: Furosemide 40 MG/4 ML VIAL IVP ONE (08:22)
[2017-08-27] MEDS ORDERED: Ipratropium/Albuterol Neb 3 ML IH ONE (08:22)
--- NOTE | 2017-08-27 08:26 | Emergency Department Note ---
Disposition Clinical Impression: Acute exacerbation of chronic obstructive airways disease CHF (congestive heart failure) Qualifiers: Heart failure type: unspecified Heart failure chronicity: acute on chronic Qualified Code(s): I50.9 - Heart failure, unspecified Disposition: Admitted As Inpatient Referrals: NONE,PCP [Primary Care Provider] - Forms: ED Satisfaction Letter Time of Disposition: 10:07 SOB HPI - General Chief Complaint: ED Shortness of Breath/Dyspnea Stated Complaint: MISTY Time Seen by Provider: 08/27/17 08:22 Source: patient, EMS Mode of arrival: EMS Limitations: other (dyspnea) Nursing Notes Reviewed: Yes Vital Signs Reviewed: Yes - History of Present Illness This is a 76 year-old female with history of HTN, HLD, cardiomyopathy, CHF, and COPD on 3L home O2. She was recently admitted with new-onset a-fib and was started on Coumadin. She presents via EMS from long term with acute on chronic dyspnea, associated with diaphoresis and SpO2 around 80%. EMS administered nebs prior to arrival with slight improvement. She denies any associated fever, cough, or chest pain. Pt Subjective Complaint: shortness of breath Onset (ago): hour(s) Context: recent illness Severity: severe Consistency/Duration: gradually worsening Improves with: bronchodilators Known history of: COPD, congestive heart failure, other (AF) Associated symptoms: Reports: diaphoresis (per EMS). Denies: chest pain, pain with inspiration, fever, cough, sputum production, lower extremity pain, hemoptysis, abdominal pain Treatment prior to arrival: oxygen, bronchodilator - Related Data Home Medications Medication Instructions Recorded Confirmed Albuterol Sulfate [Ventolin Hfa] 2 puff IH Q4H PRN 08/09/17 08/09/17 Aspirin [Lo-Dose Aspirin EC] 81 mg PO DAILY 08/09/17 08/09/17 Ipratropium/Albuterol Neb [Duoneb] 3 ml IH Q6HR 08/09/17 08/09/17 Sertraline [Zoloft] 25 mg PO DAILY 08/09/17 08/09/17 Previous Rx's Medication Instructions Recorded Budesonide/Formoterol 160/4.5 2 puff IH BIDR inhaler 08/18/17 [Symbicort 160/4.5] Furosemide [Lasix] 20 mg PO DAILY tablet 08/18/17 Lisinopril [Zestril] 5 mg PO DAILY tablet 08/18/17 Metoprolol XL (24 HR) Succ [Toprol 50 mg PO DAILY tab.er.24h 08/18/17 Xl] Potassium Chloride 40 meq PO DAILY PRN tab.er.prt 08/18/17 Tiotropium [Spiriva] 18 mcg IH DAILYR inh 08/18/17 Warfarin perPT [Coumadin perPT] 1 each PO DAILY@1800 PRN each 08/18/17 predniSONE [PredniSONE] 40 mg PO DAILY 1 Days tablet 08/18/17 Allergies Allergy/AdvReac Type Severity Reaction Status Date / Time codeine Allergy Vomiting Verified 08/27/17 08:17 Limitations: ROS unobtainable due to patients medical condition Constitutional: Denies: fever, chills Cardiovascular: Reports: edema. Denies: chest pain Respiratory: Denies: cough Gastrointestinal: Denies: abdominal pain Past Medical History - Past Medical History Medical history: Reports: COPD, hypertension Psychiatric history: Reports: anxiety - Social History Smoking Status: Former smoker Smokeless Tobacco Status: No Alcohol use: Reports: none Drug use: Reports: none Physical Exam - General Limitations: other (dyspnea) General appearance: alert - Head Head exam: atraumatic, normocephalic - Eye Eye exam: Present: normal appearance - Neck Neck exam: Present: normal inspection - Respiratory Respiratory exam: Present: respiratory distress, accessory muscle use, prolonged expiratory phase - Cardiovascular Cardiovascular exam: Present: tachycardia, irregular rhythm - Abdominal Exam Abdominal exam: Present: soft, Non-Tender. Absent: distention - Extremities Exam Extremities exam: Present: pedal edema. Absent: calf tenderness - Neurological Exam Neurological exam: Present: alert. Absent: motor sensory deficit - Psychiatric Psychiatric exam: Present: anxious - Skin Skin exam: Present: warm, dry, intact Course - Reevaluation(s) Reevaluation #1: Patient doing well on bipap. ABG pending. Time: 10:06 - Consultations Consultation #1: [facility] hospitalist. 10:18 - Discussed with Dr. Pride, and patient accepted for admission/tele. Time: 10:07 Vital Signs Temperature 97.5 F L 08/27/17 08:17 Pulse Rate 117 08/27/17 08:17 Respiratory Rate 24 08/27/17 08:17 Blood Pressure 173/91 08/27/17 08:17 O2 Sat by Pulse Oximetry 76 08/27/17 08:17 Temperature 97.5 F L 08/27/17 08:17 Pulse Rate 77 08/27/17 09:28 Respiratory Rate 24 08/27/17 08:37 Blood Pressure 101/61 08/27/17 09:28 O2 Sat by Pulse Oximetry 98 08/27/17 09:28 Oxygen Delivery Oxygen Delivery Bipap Shortness of Breath/Dyspnea - [facility] Narrative Medical decision making narrative: This is a 76 year-old female with history of CHF, COPD, and recently diagnosed AF who presented with acute on chronic dyspnea, severe respiratory distress. We will place on NRB pending bipap. DDx includes COPD exacerbation, CHF exacerbation. Less likely ACS, PE (will check coags). Will initiate treatment for both CHF and COPD and admit. - Medical Records Marked leukocytosis is noted. ?Recent steroid use - Lab Data Result diagrams: 08/27/17 08:27 08/27/17 08:27 Lab Results 08/27/17 08/27/17 08/27/17 Range/Units 08:27 08:27 08:27 WBC 19.5 H D (4.3-11.1) K/mcL RBC 3.92 (3.82-4.97) M/mcL Hgb 12.9 D (11.5-15.4) g/dL Hct 39.7 (35.3-44.9) % MCV 101.3 H (83.0-100.0) fL MCH 32.9 (28.0-33.3) pg MCHC 32.5 (31.6-35.5) g/dL RDW 13.6 (11.5-14.5) % Plt Count 250 (140-400) K/mcL MPV 11.2 (9.4-12.4) fL Immature Gran % 0.8 (0-4) % Seg Neutrophils % 86.3 % Lymphocytes % 8.4 % Monocytes % 3.9 % Eosinophils % 0.4 % Basophils % 0.2 % Neutrophils # 16.8 H (1.6-8.9) K/mcL Lymphocytes # 1.6 (0.6-4.6) K/mcL Monocytes # 0.8 (0.0-1.3) K/mcL Eosinophils # 0.1 (0.0-0.6) K/mcL Basophils # 0.0 (0.0-0.2) K/mcL PT (9.4-12.1) Seconds INR APTT (26.0-36.0) Seconds Sodium 133 L (136-145) mEq/L Potassium 4.6 (3.5-5.1) mEq/L Chloride 93 L (98-107) mEq/L Carbon Dioxide 34 H (23-29) mEq/L BUN 14 (8-23) mg/dL Creatinine 0.57 L (0.60-1.20) mg/dL Est GFR ( Amer) > 60 (> 60) Est GFR (Non-Af Amer) > 60 (> 60) BUN/Creatinine Ratio 25 (6-26) Glucose 246 H (70-105) mg/dL Calculated Osmolality 285 (280-300) Lactic Acid 2.2 (0.5-2.2) mmol/L Calcium 8.8 (8.6-10.3) mg/dL Troponin I 0.03 (< 0.04) ng/mL B-Natriuretic Peptide (Less than 100) pg/mL 08/27/17 08/27/17 Range/Units 08:27 08:27 WBC (4.3-11.1) K/mcL RBC (3.82-4.97) M/mcL Hgb (11.5-15.4) g/dL Hct (35.3-44.9) % MCV (83.0-100.0) fL MCH (28.0-33.3) pg MCHC (31.6-35.5) g/dL RDW (11.5-14.5) % Plt Count (140-400) K/mcL MPV (9.4-12.4) fL Immature Gran % (0-4) % Seg Neutrophils % % Lymphocytes % % Monocytes % % Eosinophils % % Basophils % % Neutrophils # (1.6-8.9) K/mcL Lymphocytes # (0.6-4.6) K/mcL Monocytes # (0.0-1.3) K/mcL Eosinophils # (0.0-0.6) K/mcL Basophils # (0.0-0.2) K/mcL PT 30.2 H (9.4-12.1) Seconds INR 2.7 APTT 33.8 (26.0-36.0) Seconds Sodium (136-145) mEq/L Potassium (3.5-5.1) mEq/L Chloride (98-107) mEq/L Carbon Dioxide (23-29) mEq/L BUN (8-23) mg/dL Creatinine (0.60-1.20) mg/dL Est GFR ( Amer) (> 60) Est GFR (Non-Af Amer) (> 60) BUN/Creatinine Ratio (6-26) Glucose (70-105) mg/dL Calculated Osmolality (280-300) Lactic Acid (0.5-2.2) mmol/L Calcium (8.6-10.3) mg/dL Troponin I (< 0.04) ng/mL B-Natriuretic Peptide 2847 H (Less than 100) pg/mL - Radiology Data Radiology results reviewed: Yes I reviewed the patient's radiology results. XR/XR chest 1V portable IMPRESSION: Stable chest with increased interstitial opacities which may represent chronic emphysema with possible superimposed pulmonary edema. - EKG Data EKG attestation: Yes I reviewed and interpreted this EKG. Rate: Reports: tachycardia Rhythm: Reports: A.Fib ST segment depression in: Reports: v3 T wave inversions noted in: Reports: aVL Interpretation: Reports: nonspecific ST-T wave changes
[2017-08-27 08:43] LABS: Basophils % 0.2 %; Eosinophils # 0.1 K/mcL (0.0-0.6); Eosinophils % 0.4 %; Hematocrit 39.7 % (35.3-44.9); Immature Granulocytes % 0.8 % (0-4); Lymphocytes # 1.6 K/mcL (0.6-4.6); Lymphocytes % 8.4 %; Mean Corpuscular HGB Conc 32.5 g/dL (31.6-35.5); Mean Corpuscular Hemoglobin 32.9 pg (28.0-33.3); Mean Corpuscular Volume 101.3 fL (83.0-100.0); Mean Platelet Volume 11.2 fL (9.4-12.4); Monocytes # 0.8 K/mcL (0.0-1.3); Monocytes % 3.9 %; Neutrophils # 16.8 K/mcL (1.6-8.9); Platelet Count 250 K/mcL (140-400); Red Blood Count 3.92 M/mcL (3.82-4.97); Red Cell Distribution Width 13.6 % (11.5-14.5); Segmented Neutrophils % 86.3 %
[2017-08-27 08:46] LABS: Hemoglobin 12.9 g/dL (11.5-15.4)
[2017-08-27 08:49] LABS: INR 2.7; Prothrombin Time 30.2 Seconds (9.4-12.1)
[2017-08-27 08:52] LABS: Activated Partial Thrombo Time 33.8 Seconds (26.0-36.0)
[2017-08-27 09:03] LABS: BUN/Creatinine Ratio 25 (6-26); Blood Urea Nitrogen 14 mg/dL (8-23); Calcium 8.8 mg/dL (8.6-10.3); Carbon Dioxide 34 mEq/L (23-29); Chloride 93 mEq/L (98-107); Glucose 246 mg/dL (70-105); Osmolality,Calculated 285 (280-300); Potassium 4.6 mEq/L (3.5-5.1); Sodium 133 mEq/L (136-145); Troponin I 0.03 ng/mL (< 0.04); eGFR For African Americans > 60 (> 60); eGFR For Non-African Americans > 60 (> 60)
[2017-08-27 10:39] LABS: ABG Base Excess 9 mEq/L (-2 to 3); ABG HCO3 38 mEq/L (21-27); ABG Oxygen Saturation 92 % (95-98); ABG PCO2 77 mmHg (35-45); ABG PO2 73 mmHg (85-104); ABG TCO2 41 mEq/L (20-26)
[2017-08-27] MEDS ORDERED: methylPREDNISolone 125 MG/2 ML VIAL ONE (10:40)
[2017-08-27] MEDS ORDERED: Naloxone 0.4 MG/ML INJ IVP PRN (11:03)
[2017-08-27 11:31] LABS: Estimated Average Glucose 131 mg/dl; Hemoglobin A1C 6.2 %
--- NOTE | 2017-08-27 11:32 | Internal Med History&Physical ---
<RlRe Jeyson - Last Filed: 08/27/17 12:03> Date of Encounter: 08/27/17 Time of Encounter: 11:18 Internal Medicine - H&P: HPI Admitted From: Long-term Nursing Facility Plans for Post Hospital Care: Transfer [employer] Care History of present illness: Ms. Munoz is a 76 year old female with history of htn, hld, cardiomyopathy, afib , heart failure, and COPD. She apparently was found to be hypoxic on her home O2 of 3L, she was dyspneic and had associated diaphoresis. Trop was negative. She had saturation of 80%, and was placed on bipap. The ED worked the patient up and it was found that she had a PCO2 of 77 on abg, elevated BNP of 2847. The patient was given a breathing treatment with much relief. The patient had a recent admission on 08/17/2017 for new onset Afib. She was seen by cardiology and a echo and left heart cath was performed. The heart cath showed moderate 2 vessel dx without any correctable areas. The echo showed new cardiomyopathy with LVEF of 35-45%. Global left ventricular systolic dysfunction. The patient EKG today showed Afib with RVR. Nonspecific T-wave abnormality with Hr in the 130's. The patient has a presentation of sepsis with the etiology likely pulmonary disease. Lactic is elevated at 2.3, unable to give IVF bolus', due to resp status and current heart failure. CXR showed increased interstitial opacities, chronic emphysema with possible super-imposed pulmonary edema. Blood cultures and UA, ordered. No history of diabetes mellitus, blood glucose was 246. . Past Med Surg Social Fam HX - Past Medical History Medical history: COPD, hypertension Psychiatric history: anxiety - Social History Smoking Status: Former smoker Smokeless Tobacco Status: No Alcohol use: none Drug use: none - Family History Mother Hx Family Cardiac Disorders: Yes Internal Medicine - H&P: Meds Albuterol Sulfate [Ventolin Hfa] 2 puff IH Q4H PRN 08/09/17 [History] Aspirin [Lo-Dose Aspirin EC] 81 mg PO DAILY 08/09/17 [History] Ipratropium/Albuterol Neb [Duoneb] 3 ml IH Q6HR 08/09/17 [History] Sertraline [Zoloft] 25 mg PO DAILY 08/09/17 [History] Furosemide [Lasix] 20 mg PO DAILY tablet 08/18/17 [Rx] Lisinopril [Zestril] 5 mg PO DAILY tablet 08/18/17 [Rx] Metoprolol XL (24 HR) Succ [Toprol Xl] 50 mg PO DAILY tab.er.24h 08/18/17 [Rx] Tiotropium [Spiriva] 18 mcg IH DAILYR inh 08/18/17 [Rx] Atorvastatin Calcium [Lipitor] 20 mg PO HS 08/27/17 [History] Fluticasone/Vilanterol [Breo Ellipta 200-25 Mcg INH] 1 puff IH DAILY 08/27/17 [ History] Potassium Chloride [Klor-Con 10] 10 meq PO DAILY 08/27/17 [History] Warfarin [Coumadin] 2 mg PO DAILY 08/27/17 [History] 3 Allergy/AdvReac Type Severity Reaction Status Date / Time codeine Allergy Vomiting Verified 08/27/17 08:17 All Systems PM: A 10-system review of systems was performed and is negative for pertinent findings except as documented above in the HPI. - Constitutional Constitutional: no chills, no fever(s), no night sweats - EENT Eyes: no change in vision, no discharge, no pain, no photophobia Ears: no ear discharge, no ear pain, no tinnitus Nose, mouth and throat: dysphagia, no nasal discharge, no neck pain, no sore throat - Cardiovascular Cardiovascular ROS IM: diaphoresis, dyspnea, no chest pain, no lightheadedness, no palpitations, no syncope - Respiratory Respiratory: chest congestion, no cough, no dyspnea, no wheezing, no excessive phlegm production - Gastrointestinal Gastrointestinal: no abdominal pain, no diarrhea, no hematemesis, no hematochezia, no melena, no nausea, no vomiting - Genitourinary Genitourinary: no change in urinary stream, no dysuria, no flank pain, no hematuria - Musculoskeletal Musculoskeletal ROS IM: no numbness, no tingling - Integumentary Integumentary IM: no rash, no unusual bruising - Neurological Neurological ROS: no confusion, no convulsions, no focal weakness, no numbness, no tingling, no tremor(s) - Hematologic/Lymphatic Hematologic/Lymphatic: no easy bruising - Constitutional Vitals: Temp Pulse Resp BP Pulse Ox 97.5 F L 85 23 116/74 98 08/27/17 08:17 08/27/17 10:32 08/27/17 10:32 08/27/17 10:32 08/27/17 10:32 General appearance: Present: A&O X 3 - Head Head exam: Present: atraumatic, normocephalic - Eye Eye exam: Present: PERRL, conjuntiva pink, sclera anicteric Pupils: Present: PERRL - Neck Neck exam general surgery: Present: supple, trachea midline. Absent: lymphadenopathy - Respiratory Respiratory exam: Present: decreased breath sounds. Absent: accessory muscle use, rales, rhonchi, wheezes - Cardiovascular Cardiovascular exam: Present: RRR, +S1, +S2. Absent: diastolic murmur, gallop, rubs, systolic murmur - GI/Abdominal GI/Abdominal exam: Present: normal bowel sounds, soft, no peritoneal signs. Absent: distended, tenderness - Extremities Exam Extremities exam: Present: warm, radial pulses palpable and symmetrical. Absent : calf tenderness, cyanotic, pedal edema - Neurological Exam Neurological exam: Present: CN II-XII intact, oriented X3 (x2-disoriented to date), no focal deficits. Absent: pronater drift, facial droop, speech deficit - Skin Skin exam: Present: dry, intact Internal Med - H&P Results - Labs CBC & Chem 7: 08/27/17 08:27 08/27/17 08:27 Labs: Short CBC 08/27/17 Range/Units 08:27 WBC 19.5 H D (4.3-11.1) K/mcL Hgb 12.9 D (11.5-15.4) g/dL Hct 39.7 (35.3-44.9) % Plt Count 250 (140-400) K/mcL Neutrophils # 16.8 H (1.6-8.9) K/mcL BMP 08/27/17 08:27 Sodium 133 L Potassium 4.6 Chloride 93 L Carbon Dioxide 34 H BUN 14 Creatinine 0.57 L Glucose 246 H Calcium 8.8 Cardiac Enzymes 08/27/17 Range/Units 08:27 Troponin I 0.03 (< 0.04) ng/mL - ABG Interpretation ABG results: 08/27/17 10:34 ABG pH 7.30 L ABG pCO2 77 H* ABG pO2 73 L ABG HCO3 38 H ABG Total CO2 41 H ABG O2 Saturation 92 L ABG Base Excess 9 H - Impressions ITS Impressions Chest X-Ray 08/27/17 08:22 IMPRESSION: Stable chest with increased interstitial opacities which may represent chronic emphysema with possible superimposed pulmonary edema. D/ / Brandin Owens MD / Brandin Owens MD Interpreting Provider: Brandin Owens MD - Assessment and plan (1) Acute exacerbation of chronic obstructive airways disease Current Visit: Yes Status: Acute Assessment and plan: The patient will continue home med nebs, oxygen/bipap, and will start iv solumedrol. (2) CHF (congestive heart failure) Current Visit: Yes Status: Acute Assessment and plan: The patient will continue her home dose of furosemide and oxygen/bipap. Qualifiers: Heart failure type: unspecified Heart failure chronicity: acute on chronic Qualified Code(s): I50.9 - Heart failure, unspecified (3) A-fib Current Visit: Yes Status: Acute Assessment and plan: Cardiac monitoring, control RVR, and continue coumadin dosing, with PT/INR daily. Qualifiers: Atrial fibrillation type: chronic Qualified Code(s): I48.2 - Chronic atrial fibrillation (4) Sepsis Current Visit: Yes Status: Acute Assessment and plan: Likely related to developing (HCAP) PNA. Patient lives in [place]. The patient will be started on iv Levaquin daily Qualifiers: Sepsis type: sepsis due to unspecified organism Qualified Code(s): A41.9 - Sepsis, unspecified organism (5) Hyperglycemia Current Visit: Yes Status: Acute Assessment and plan: Will get Hgb AIC in am.No current history of diabetes. - Time Spent With Patient Total time spent is greater than 50% in coordination of care (as documented) at patient's floor/unit and/or counseling patient: 25 - 35 minutes <Mariaelena Pride - Last Filed: 08/27/17 12:16> Date of Encounter: 08/27/17 Internal Medicine - H&P: HPI History of present illness: Ms. Munoz is a 76 year old female All Systems PM: A 10-system review of systems was performed and is negative for pertinent findings except as documented above in the HPI. - Constitutional Vitals: Temp Pulse Resp BP Pulse Ox 97.5 F L 85 23 116/74 98 08/27/17 08:17 08/27/17 10:32 08/27/17 10:32 08/27/17 10:32 08/27/17 10:32 Internal Med - H&P Results - Labs CBC & Chem 7: 08/27/17 08:27 08/27/17 08:27 - Attending Attestation Examined the patient. Reviewed the note. Agreed with plan. Acute respiratory failure with raised PCO2, raised white count possibility of underlying hospital acquired pneumonia leading to COPD exacerbation and patient requiring BiPAP therefore will keep patient in step down ICU for close monitoring. Official reading of chest x-ray with no infiltrate but on reviewing the film possible infiltrate on right middle lobe. Patient also in sepsis with leukocytosis and raised lactic acid therefore panculture and IV Levaquin is started. Patient also has mild CHF exacerbation with slight raised creatinine level therefore will continue home dose of Lasix. Chronically elevated BNP. Recent cardiac workup done during last admission. 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 - Time Spent With Patient Total time spent is greater than 50% in coordination of care (as documented) at patient's floor/unit and/or counseling patient:
[2017-08-27] MEDS ORDERED: MethylPREDNISolone 40 MG/ML VIAL IVP ONE (11:47)
[2017-08-27] MEDS: Levofloxacin 500 MG/100 ML 500 MG/100 ML BAG IVPB SCH (12:17)
--- NOTE | 2017-08-27 12:24 | Electrocardiograph Report ---
[place] [employer] [employer] Test Date: 2017-08-27 Pat Name: Giulia Munoz Department: 103 Room: 2A11 Gender: F Resistor Tester: : 1940 Requested By: Castro Olivier Order Number: [id number] Reading MD: Steven Ohara Measurements Intervals [place] Rate: 130 P: MT: 0 QRS: -2 QRSD: 80 T: 91 QT: 285 QTc: 362 Interpretive Statements ATRIAL FIBRILLATION WITH RAPID VENTRICULAR RESPONSE NONSPECIFIC T-WAVE ABNORMALITY Electronically Signed On 08-27-2017 12:22:53 EDT by Steven Ohara
[2017-08-27 13:10] LABS: Bilirubin,Urine Negative (Negative); Blood,Urine Negative (Negative); Clarity,Urine Clear (Clear); Color,Urine Yellow (Yellow); Glucose,Urine (UA) Normal (Normal); Ketones,Urine Negative (Negative); Leukocyte Esterase,Urine Negative (Negative); Nitrite,Urine Negative (Negative); PH,Urine 6.5 pH Units (5.0-8.0); Protein,Urine Negative (Neg-Trace); Specific Gravity,Urine 1.014 (1.010-1.025); Urobilinogen,Urine Normal (Normal)
[2017-08-27] MEDS: Ipratropium/Albuterol Neb 3 ML IH SCH ×2 (15:12→21:35)
[2017-08-27 15:40] LABS: ABG Base Excess 12 mEq/L (-2 to 3); ABG HCO3 41 mEq/L (21-27); ABG Oxygen Saturation 63 % (95-98); ABG PCO2 69 mmHg (35-45); ABG PH 7.38 pH Units (7.32-7.45); ABG PO2 35 mmHg (85-104); ABG TCO2 43 mEq/L (20-26)
[2017-08-27 16:08] LABS: ABG Base Excess 10 mEq/L (-2 to 3); ABG HCO3 37 mEq/L (21-27); ABG Oxygen Saturation 94 % (95-98); ABG PCO2 58 mmHg (35-45); ABG PH 7.42 pH Units (7.32-7.45); ABG PO2 72 mmHg (85-104); ABG TCO2 39 mEq/L (20-26)
[2017-08-27] MEDS ORDERED: Warfarin perPT PO PRN (18:00)
[2017-08-27] MEDS ORDERED: *HR* Warfarin 2 MG TABLET PO ONE (18:00)
[2017-08-27] MEDS ORDERED: Budesonide/Formoterol 80/4.5 MDI IH SCH (22:00)
[2017-08-28 03:12] LABS: Basophils % 0.1 %; Hematocrit 33.8 % (35.3-44.9); Immature Granulocytes % 0.4 % (0-4); Lymphocytes # 0.8 K/mcL (0.6-4.6); Lymphocytes % 6.7 %; Mean Corpuscular HGB Conc 32.5 g/dL (31.6-35.5); Mean Corpuscular Hemoglobin 31.1 pg (28.0-33.3); Mean Corpuscular Volume 95.5 fL (83.0-100.0); Mean Platelet Volume 10.5 fL (9.4-12.4); Monocytes # 0.6 K/mcL (0.0-1.3); Monocytes % 4.7 %; Neutrophils # 10.7 K/mcL (1.6-8.9); Platelet Count 207 K/mcL (140-400); Red Blood Count 3.54 M/mcL (3.82-4.97); Red Cell Distribution Width 13.4 % (11.5-14.5); Segmented Neutrophils % 88.1 %
[2017-08-28 03:27] LABS: INR 2.7; Prothrombin Time 30.1 Seconds (9.4-12.1)
[2017-08-28 03:30] LABS: BUN/Creatinine Ratio 42 (6-26); Blood Urea Nitrogen 16 mg/dL (8-23); Calcium 8.4 mg/dL (8.6-10.3); Carbon Dioxide 34 mEq/L (23-29); Chloride 96 mEq/L (98-107); Glucose 108 mg/dL (70-105); Osmolality,Calculated 282 (280-300); Sodium 135 mEq/L (136-145); eGFR For African Americans > 60 (> 60); eGFR For Non-African Americans > 60 (> 60)
[2017-08-28] MEDS: Ipratropium/Albuterol Neb 3 ML IH SCH ×4 (03:36→22:17)
[2017-08-28] MEDS ORDERED: Nitroglycerin 0.4 MG TAB.SUBL SL PRN (07:37)
[2017-08-28] MEDS ORDERED: Furosemide 40 MG/4 ML VIAL IVP ONE (07:53)
[2017-08-28] MEDS: Metoprolol XL (24 HR) Succ 50 MG TAB.ER.24H PO SCH (08:03)
[2017-08-28] MEDS: Aspirin Enteric Coated 81 MG Tablet PO SCH (08:03)
[2017-08-28] MEDS ORDERED: NON-FORMULARY MEDICATION 1 EACH EACH (Fluticasone/Vilanterol [Breo Ellipta 200-25 Mcg Inh] IH SCH (09:00)
[2017-08-28] MEDS ORDERED: Furosemide 20 MG TABLET PO SCH (09:00)
[2017-08-28] MEDS ORDERED: Tiotropium 18 MCG inhalation IH SCH (10:00)
[2017-08-28] MEDS: Budesonide/Formoterol 160/4.5 MDI IH SCH ×2 (10:41→22:15)
[2017-08-28] MEDS: Levofloxacin 500 MG/100 ML 500 MG/100 ML BAG IVPB SCH (11:07)
--- NOTE | 2017-08-28 13:21 | Internal Med Progress Note ---
Date of Encounter: 08/28/17 Time of Encounter: 13:21 - Assessment and plan (1) Acute on chronic systolic (congestive) heart failure Current Visit: Yes Status: Acute Assessment and plan: She does have acute systolic CHF exacerbation reviewed her LHC and 2 D Echo from 07/29 started her on IV Lasix 20 BIDstrict I & O cont BB, ASA and Statin (2) Sepsis Current Visit: Yes Status: Acute Assessment and plan: Did meet SIRS criteria with elevated WBC, tachycardia and source of inf as PNA improving Qualifiers: Sepsis type: sepsis due to unspecified organism Qualified Code(s): A41.9 - Sepsis, unspecified organism (3) Acute and chronic respiratory failure with hypoxia Current Visit: Yes Status: Acute Assessment and plan: Currently on 4.5 lit O2 cont empirical abx cont duoneb cont IV diuresis no need of steroids (4) Pulmonary edema Current Visit: Yes Status: Acute Assessment and plan: Due to PNA + CHF exacerbation cont IV diuresis Qualifiers: Chronicity: acute Qualified Code(s): J81.0 - Acute pulmonary edema (5) HCAP (healthcare-associated pneumonia) Current Visit: Yes Status: Acute Assessment and plan: Mostly bacterial cont empirical abx Levaquin (6) Chronic a-fib Current Visit: Yes Status: Acute Assessment and plan: rate controlled with home med Metoprolol cont Coumadin for anti coag - Time Spent With Patient Total time spent is greater than 50% in coordination of care (as documented) at patient's floor/unit and/or counseling patient: - Subjective Interval history: Ms. Munoz is a 76 year old female with history of HTN, HLD, cardiomyopathy, afib , Systolic heart failure, COPD and chronic hypoxic resp failure with 3 lit home O2 dependent, CAD who recently had [facility] showed moderate two vessel CAD of LAD and Mid RCA, now pt was sent to our ER with hypoxia on her home O2 of 3L, she was dyspneic and had associated diaphoresis. Pt CXR showed b/l infiltrates and interstitial edema. She was admitted here and started her on empirical abx Levaquin annd continue PO lasix. This morning she c/o more SOB and chest discomfort. She was give IV Lasix, now she feels better. Denied any CP. No fever / chills. Breathing comfortably on 4.5 lit o2. - Constitutional Vitals: Temp Pulse Resp BP Pulse Ox 98.1 F 89 24 114/66 97 08/28/17 12:15 08/28/17 12:15 08/28/17 12:15 08/28/17 12:15 08/28/17 12:15 General appearance: Present: A&O X 3, no acute distress, answers questions appropriately - Head Head exam: Present: atraumatic, normal inspection - Neck Neck exam general surgery: Present: supple - Respiratory Respiratory exam: Present: decreased breath sounds, rales (mild), wheezes (mild) . Absent: respiratory distress, rhonchi - Cardiovascular Cardiovascular exam: Present: irregular rhythm, +S1, +S2. Absent: tachycardia - GI/Abdominal GI/Abdominal exam: Present: normal bowel sounds, soft. Absent: rebound, rigid, tenderness - Extremities Exam Extremities exam: Absent: calf tenderness, pedal edema, tenderness - Back Exam Back exam: Absent: CVA tenderness (L), CVA tenderness (R) - Neurological Exam Neurological exam: Present: alert, oriented X3 - Psychiatric Psychiatric exam: Present: normal affect, normal mood - Skin Skin exam: Absent: rash Internal Medicine: Result - Labs CBC & Chem 7: 08/28/17 03:00 08/28/17 03:00 Labs: Short CBC 08/28/17 Range/Units 03:00 WBC 12.1 H (4.3-11.1) K/mcL Hgb 11.0 L D (11.5-15.4) g/dL Hct 33.8 L (35.3-44.9) % Plt Count 207 (140-400) K/mcL Neutrophils # 10.7 H (1.6-8.9) K/mcL BMP 08/28/17 03:00 Sodium 135 L Potassium 4.0 Chloride 96 L Carbon Dioxide 34 H BUN 16 Creatinine 0.38 L Glucose 108 H Calcium 8.4 L Cardiac Enzymes 08/27/17 08/27/17 08/28/17 Range/Units 14:59 21:05 03:00 Troponin I 0.04 H* 0.03 0.04 H* (< 0.04) ng/mL - ABG Interpretation ABG results: ABG ABG pH 7.42 pH Units (7.32-7.45) 08/27/17 16:05 ABG pCO2 58 mmHg (35-45) H 08/27/17 16:05 ABG pO2 72 mmHg (85-104) L 08/27/17 16:05 ABG O2 Saturation 94 % (95-98) L 08/27/17 16:05 PT/INR, D-dimer PT 30.1 Seconds (9.4-12.1) H 08/28/17 03:00 Consult Discharge Plan - Plan Referrals: NONE,PCP [Primary Care Provider] -
[2017-08-28] MEDS: Furosemide 20 MG/2 ML VIAL IVP SCH (16:58)
[2017-08-28] MEDS ORDERED: *HR* Warfarin 1 MG TABLET PO ONE (18:00)
[2017-08-28] MEDS ORDERED: *HR* Warfarin 2 MG TABLET PO SCH (18:00)
[2017-08-29] MEDS: Ipratropium/Albuterol Neb 3 ML IH SCH ×4 (03:28→22:53)
[2017-08-29 03:29] LABS: Basophils % 0.1 %; Eosinophils # 0.1 K/mcL (0.0-0.6); Eosinophils % 0.8 %; Hematocrit 30.3 % (35.3-44.9); Hemoglobin 10.2 g/dL (11.5-15.4); Immature Granulocytes % 0.4 % (0-4); Lymphocytes # 1.9 K/mcL (0.6-4.6); Lymphocytes % 16.5 %; Mean Corpuscular HGB Conc 33.7 g/dL (31.6-35.5); Mean Corpuscular Hemoglobin 32.7 pg (28.0-33.3); Mean Corpuscular Volume 97.1 fL (83.0-100.0); Mean Platelet Volume 11.2 fL (9.4-12.4); Monocytes # 0.7 K/mcL (0.0-1.3); Monocytes % 6.5 %; Neutrophils # 8.6 K/mcL (1.6-8.9); Platelet Count 190 K/mcL (140-400); Red Blood Count 3.12 M/mcL (3.82-4.97); Red Cell Distribution Width 13.8 % (11.5-14.5); Segmented Neutrophils % 75.7 %
[2017-08-29 03:34] LABS: INR 3.7; Prothrombin Time 40.9 Seconds (9.4-12.1)
[2017-08-29 03:47] LABS: BUN/Creatinine Ratio 42 (6-26); Blood Urea Nitrogen 18 mg/dL (8-23); Calcium 8.1 mg/dL (8.6-10.3); Carbon Dioxide 36 mEq/L (23-29); Chloride 94 mEq/L (98-107); Glucose 96 mg/dL (70-105); Osmolality,Calculated 278 (280-300); Potassium 3.7 mEq/L (3.5-5.1); Sodium 133 mEq/L (136-145); eGFR For African Americans > 60 (> 60); eGFR For Non-African Americans > 60 (> 60)
[2017-08-29] MEDS: Furosemide 20 MG/2 ML VIAL IVP SCH ×2 (08:00→16:56)
[2017-08-29] MEDS: Metoprolol XL (24 HR) Succ 50 MG TAB.ER.24H PO SCH (08:01)
[2017-08-29] MEDS: Aspirin Enteric Coated 81 MG Tablet PO SCH (08:01)
--- NOTE | 2017-08-29 09:25 | Internal Med Progress Note ---
Date of Encounter: 08/29/17 Time of Encounter: 09:24 - Assessment and plan (1) Acute on chronic systolic (congestive) heart failure Current Visit: Yes Status: Acute Assessment and plan: She does have acute systolic CHF exacerbation reviewed her LHC and 2 D Echo from 07/29 Con IV Lasix 20 BID strict I & O cont BB, ASA and Statin (2) Sepsis Current Visit: Yes Status: Acute Assessment and plan: Did meet SIRS criteria with elevated WBC, tachycardia and source of inf as PNA improving Qualifiers: Sepsis type: sepsis due to unspecified organism Qualified Code(s): A41.9 - Sepsis, unspecified organism (3) Acute and chronic respiratory failure with hypoxia Current Visit: Yes Status: Acute Assessment and plan: Currently on 4 lit O2 cont empirical abx cont duoneb cont IV diuresis Will start on IV steroids since pt does have diffuse wheezing (4) Pulmonary edema Current Visit: Yes Status: Acute Assessment and plan: Due to PNA + CHF exacerbation cont IV diuresis Qualifiers: Chronicity: acute Qualified Code(s): J81.0 - Acute pulmonary edema (5) HCAP (healthcare-associated pneumonia) Current Visit: Yes Status: Acute Assessment and plan: Mostly bacterial changed abx to Rocephin + Azithromycin since pt is on Coumadin and Levaquin is affecting her INR (6) Acute exacerbation of chronic obstructive airways disease Current Visit: Yes Status: Acute Assessment and plan: Cont Duoneb Started her on IV steroids cont O2 (7) Chronic a-fib Current Visit: Yes Status: Acute Assessment and plan: rate controlled with home med Metoprolol cont Coumadin for anti coag - Time Spent With Patient Total time spent is greater than 50% in coordination of care (as documented) at patient's floor/unit and/or counseling patient: - Subjective Interval history: Ms. Munoz is a 76 year old female with history of HTN, HLD, cardiomyopathy, afib , Systolic heart failure, COPD and chronic hypoxic resp failure with 3 lit home O2 dependent, CAD who recently had [facility] showed moderate two vessel CAD of LAD and Mid RCA, now pt was sent to our ER with hypoxia on her home O2 of 3L, she was dyspneic and had associated diaphoresis. Pt CXR showed b/l infiltrates and interstitial edema. She was admitted here and started her on empirical abx Levaquin annd continue PO lasix. This morning she c/o more SOB and chest discomfort. Denied any CP. No fever / chills. She is still on 4 lit. No events overnight - Constitutional Vitals: Temp Pulse Resp BP Pulse Ox 97.8 F 83 19 133/78 100 08/29/17 07:12 08/29/17 07:12 08/29/17 07:12 08/29/17 07:12 08/29/17 07:12 General appearance: Present: mild distress, A&O X 3, answers questions appropriately - Head Head exam: Present: atraumatic, normal inspection - Neck Neck exam general surgery: Present: supple - Respiratory Respiratory exam: Present: decreased breath sounds, respiratory distress, wheezes (moderate). Absent: rales, rhonchi - Cardiovascular Cardiovascular exam: Present: RRR, +S1, +S2. Absent: tachycardia - GI/Abdominal GI/Abdominal exam: Present: normal bowel sounds, soft. Absent: rebound, rigid, tenderness - Extremities Exam Extremities exam: Absent: calf tenderness, pedal edema, tenderness - Back Exam Back exam: Absent: CVA tenderness (L), CVA tenderness (R) - Neurological Exam Neurological exam: Present: alert, oriented X3 - Psychiatric Psychiatric exam: Present: normal affect, normal mood Internal Medicine: Result - Labs CBC & Chem 7: 08/29/17 03:00 08/29/17 03:00 Labs: Short CBC 08/29/17 Range/Units 03:00 WBC 11.3 H (4.3-11.1) K/mcL Hgb 10.2 L (11.5-15.4) g/dL Hct 30.3 L (35.3-44.9) % Plt Count 190 (140-400) K/mcL Neutrophils # 8.6 (1.6-8.9) K/mcL BMP 08/29/17 03:00 Sodium 133 L Potassium 3.7 Chloride 94 L Carbon Dioxide 36 H BUN 18 Creatinine 0.43 L Glucose 96 Calcium 8.1 L - ABG Interpretation ABG results: ABG ABG pH 7.42 pH Units (7.32-7.45) 08/27/17 16:05 ABG pCO2 58 mmHg (35-45) H 08/27/17 16:05 ABG pO2 72 mmHg (85-104) L 08/27/17 16:05 ABG O2 Saturation 94 % (95-98) L 08/27/17 16:05 PT/INR, D-dimer PT 40.9 Seconds (9.4-12.1) H 08/29/17 03:00 Consult Discharge Plan - Plan Referrals: NONE,PCP [Primary Care Provider] - (Patient is from [facility])
[2017-08-29] MEDS: Budesonide/Formoterol 160/4.5 MDI IH SCH ×2 (10:03→22:51)
[2017-08-29] MEDS: Azithromycin 250 MG TABLET PO SCH (10:31)
[2017-08-29] MEDS: cefTRIAXone 1,000 MG in Water for inj. (sterile) 20 ML 10 ML IVP SCH (10:31)
[2017-08-29] MEDS: MethylPREDNISolone 40 MG/ML VIAL IVP SCH ×2 (10:31→16:56)
[2017-08-30] MEDS: MethylPREDNISolone 40 MG/ML VIAL IVP SCH ×3 (00:31→16:51)
[2017-08-30] MEDS: Ipratropium/Albuterol Neb 3 ML IH SCH ×4 (03:17→22:43)
[2017-08-30 08:27] LABS: Hematocrit 34.8 % (35.3-44.9); Hemoglobin 11.1 g/dL (11.5-15.4); Immature Granulocytes % 0.4 % (0-4); Lymphocytes # 0.7 K/mcL (0.6-4.6); Lymphocytes % 6.6 %; Mean Corpuscular HGB Conc 31.9 g/dL (31.6-35.5); Mean Corpuscular Hemoglobin 31.1 pg (28.0-33.3); Mean Corpuscular Volume 97.5 fL (83.0-100.0); Mean Platelet Volume 11.3 fL (9.4-12.4); Monocytes # 0.3 K/mcL (0.0-1.3); Monocytes % 3.3 %; Neutrophils # 9.3 K/mcL (1.6-8.9); Platelet Count 180 K/mcL (140-400); Red Blood Count 3.57 M/mcL (3.82-4.97); Red Cell Distribution Width 13.6 % (11.5-14.5); Segmented Neutrophils % 89.7 %
[2017-08-30 08:36] LABS: BUN/Creatinine Ratio 40 (6-26); Blood Urea Nitrogen 17 mg/dL (8-23); Calcium 8.9 mg/dL (8.6-10.3); Carbon Dioxide 37 mEq/L (23-29); Chloride 95 mEq/L (98-107); Glucose 133 mg/dL (70-105); Osmolality,Calculated 287 (280-300); Potassium 4.1 mEq/L (3.5-5.1); Sodium 137 mEq/L (136-145); eGFR For African Americans > 60 (> 60); eGFR For Non-African Americans > 60 (> 60)
--- NOTE | 2017-08-30 09:07 | Internal Med Progress Note ---
Date of Encounter: 08/30/17 Time of Encounter: 08:30 - Assessment and plan (1) Acute on chronic systolic (congestive) heart failure Current Visit: Yes Status: Acute Assessment and plan: She does have acute systolic CHF exacerbation reviewed her LHC and 2 D Echo from 07/29 Con IV Lasix 20 BID strict I & O cont BB, ASA and Statin (2) Sepsis Current Visit: Yes Status: Acute Assessment and plan: Did meet SIRS criteria with elevated WBC, tachycardia and source of inf as PNA improving Qualifiers: Sepsis type: sepsis due to unspecified organism Qualified Code(s): A41.9 - Sepsis, unspecified organism (3) Acute and chronic respiratory failure with hypoxia Current Visit: Yes Status: Acute Assessment and plan: Currently on 4 lit O2 cont empirical abx cont duoneb cont IV diuresis Start tapering steroids (4) Pulmonary edema Current Visit: Yes Status: Acute Assessment and plan: Due to PNA + CHF exacerbation cont IV diuresis Qualifiers: Chronicity: acute Qualified Code(s): J81.0 - Acute pulmonary edema (5) HCAP (healthcare-associated pneumonia) Current Visit: Yes Status: Acute Assessment and plan: Mostly bacterial changed abx to Rocephin + Azithromycin since pt is on Coumadin and Levaquin is affecting her INR (6) Acute exacerbation of chronic obstructive airways disease Current Visit: Yes Status: Acute Assessment and plan: Cont Duoneb Started her on IV steroids cont O2 (7) Chronic a-fib Current Visit: Yes Status: Acute Assessment and plan: rate controlled with home med Metoprolol cont Coumadin for anti coag - Time Spent With Patient Total time spent is greater than 50% in coordination of care (as documented) at patient's floor/unit and/or counseling patient: - Subjective Interval history: Ms. Munoz is a 76 year old female with history of HTN, HLD, cardiomyopathy, afib , Systolic heart failure, COPD and chronic hypoxic resp failure with 3 lit home O2 dependent, CAD who recently had [facility] showed moderate two vessel CAD of LAD and Mid RCA, now pt was sent to our ER with hypoxia on her home O2 of 3L, she was dyspneic and had associated diaphoresis. Pt CXR showed b/l infiltrates and interstitial edema. She was admitted here and started her on empirical abx Levaquin annd continue PO lasix. This morning she c/o more SOB and chest discomfort. Denied any CP. No fever / chills. She is still on 4 lit. No events overnight. Overall feels better. - Constitutional Vitals: Temp Pulse Resp BP Pulse Ox 97.7 F 76 18 130/61 96 08/30/17 06:48 08/30/17 06:48 08/30/17 06:48 08/30/17 06:48 08/30/17 06:48 General appearance: Present: A&O X 3, answers questions appropriately - Head Head exam: Present: atraumatic, normal inspection - Neck Neck exam general surgery: Present: supple - Respiratory Respiratory exam: Present: decreased breath sounds. Absent: rales, respiratory distress, rhonchi, wheezes - Cardiovascular Cardiovascular exam: Present: RRR, +S1, +S2. Absent: systolic murmur, tachycardia - GI/Abdominal GI/Abdominal exam: Present: normal bowel sounds, soft. Absent: rebound, rigid, tenderness - Extremities Exam Extremities exam: Absent: calf tenderness, pedal edema, tenderness - Back Exam Back exam: Absent: CVA tenderness (L), CVA tenderness (R) - Neurological Exam Neurological exam: Present: alert, oriented X3 - Psychiatric Psychiatric exam: Present: normal affect, normal mood Internal Medicine: Result - Labs CBC & Chem 7: 08/30/17 07:51 08/30/17 07:51 Labs: Short CBC 08/30/17 Range/Units 07:51 WBC 10.3 (4.3-11.1) K/mcL Hgb 11.1 L (11.5-15.4) g/dL Hct 34.8 L (35.3-44.9) % Plt Count 180 (140-400) K/mcL Neutrophils # 9.3 H (1.6-8.9) K/mcL BMP 08/30/17 07:51 Sodium 137 Potassium 4.1 Chloride 95 L Carbon Dioxide 37 H BUN 17 Creatinine 0.43 L Glucose 133 H Calcium 8.9 - ABG Interpretation ABG results: ABG ABG pH 7.42 pH Units (7.32-7.45) 08/27/17 16:05 ABG pCO2 58 mmHg (35-45) H 08/27/17 16:05 ABG pO2 72 mmHg (85-104) L 08/27/17 16:05 ABG O2 Saturation 94 % (95-98) L 08/27/17 16:05 PT/INR, D-dimer PT 40.9 Seconds (9.4-12.1) H 08/29/17 03:00 Consult Discharge Plan - Plan Referrals: NONE,PCP [Primary Care Provider] - (Patient is from [facility])
[2017-08-30] MEDS: Aspirin Enteric Coated 81 MG Tablet PO SCH (09:08)
[2017-08-30] MEDS: Azithromycin 250 MG TABLET PO SCH (09:08)
[2017-08-30] MEDS: Metoprolol XL (24 HR) Succ 50 MG TAB.ER.24H PO SCH (09:08)
[2017-08-30] MEDS: cefTRIAXone 1,000 MG in Water for inj. (sterile) 20 ML 10 ML IVP SCH (09:08)
[2017-08-30] MEDS: Furosemide 20 MG/2 ML VIAL IVP SCH ×2 (09:11→16:51)
[2017-08-30] MEDS: Budesonide/Formoterol 160/4.5 MDI IH SCH ×2 (10:17→22:43)
[2017-08-30] MEDS ORDERED: *HR* Warfarin 2 MG TABLET PO ONE (18:00)
[2017-08-31] MEDS: MethylPREDNISolone 40 MG/ML VIAL IVP SCH ×2 (01:01→08:52)
[2017-08-31] MEDS: Ipratropium/Albuterol Neb 3 ML IH SCH ×4 (04:25→21:47)
[2017-08-31 06:33] LABS: INR 1.8; Prothrombin Time 19.3 Seconds (9.4-12.1)
[2017-08-31 06:45] LABS: BUN/Creatinine Ratio 53 (6-26); Blood Urea Nitrogen 25 mg/dL (8-23); Calcium 8.8 mg/dL (8.6-10.3); Carbon Dioxide 39 mEq/L (23-29); Chloride 91 mEq/L (98-107); Glucose 125 mg/dL (70-105); Magnesium 2.1 mg/dL (1.6-2.6); Osmolality,Calculated 286 (280-300); Potassium 4.3 mEq/L (3.5-5.1); Sodium 135 mEq/L (136-145); eGFR For African Americans > 60 (> 60); eGFR For Non-African Americans > 60 (> 60)
[2017-08-31] MEDS: Furosemide 20 MG/2 ML VIAL IVP SCH ×2 (08:52→16:50)
[2017-08-31] MEDS: Metoprolol XL (24 HR) Succ 50 MG TAB.ER.24H PO SCH (08:53)
[2017-08-31] MEDS: cefTRIAXone 1,000 MG in Water for inj. (sterile) 20 ML 10 ML IVP SCH (08:54)
[2017-08-31] MEDS: Azithromycin 250 MG TABLET PO SCH (08:54)
[2017-08-31] MEDS: Aspirin Enteric Coated 81 MG Tablet PO SCH (08:54)
--- NOTE | 2017-08-31 09:21 | Discharge Summary ---
- NOTES TO OUTPATIENT PROVIDER Notes to Outpatient Provider: f/u with PCP in one week. Please take Lasix 20mg BID x 3 more days then continue daily Orders not resulted at time of discharge: Pending orders 08/27/17 19:56 EKG [ECG 12 lead ECG] [ECG] Routine 09/01/17 04:00 PT/INR [Prothrombin Time INR] [COAG] AM 0400 09/02/17 04:00 PT/INR [Prothrombin Time INR] [COAG] AM 04009/03/17 04:00 PT/INR [Prothrombin Time INR] [COAG] AM 0400 09/04/17 04:00 PT/INR [Prothrombin Time INR] [COAG] AM 04009/05/17 04:00 PT/INR [Prothrombin Time INR] [COAG] AM 040 Date of Encounter: 08/31/17 Time of Encounter: 08:45 - Discharge Diagnosis (1) Acute on chronic systolic (congestive) heart failure Priority: Primary Status: Acute (2) Sepsis Priority: Primary Status: Acute Qualifiers: Sepsis type: sepsis due to unspecified organism Qualified Code(s): A41.9 - Sepsis, unspecified organism (3) Acute and chronic respiratory failure with hypoxia Priority: Primary Status: Acute (4) Pulmonary edema Priority: Secondary Status: Acute Qualifiers: Chronicity: acute Qualified Code(s): J81.0 - Acute pulmonary edema (5) HCAP (healthcare-associated pneumonia) Priority: Secondary Status: Acute (6) Acute exacerbation of chronic obstructive airways disease Priority: Secondary Status: Acute (7) Chronic a-fib Priority: Secondary Status: Acute Hospital course: Ms. Munoz is a 76 year old female with history of HTN, HLD, cardiomyopathy, afib , Systolic heart failure, COPD and chronic hypoxic resp failure with 3 lit home O2 dependent, CAD who recently had [facility] showed moderate two vessel CAD of LAD and Mid RCA, now pt was sent to our ER with hypoxia on her home O2 of 3L, she was dyspneic and had associated diaphoresis. Pt CXR showed b/l infiltrates and interstitial edema. She was admitted here and started her on empirical abx Levaquin annd continue PO lasix. Since pt is on coumadin and her INR became supra therapeutic I switched her abx to Rocephin and Azithromycin.Pt was also placed on high dose IV steroids initiall due to her COPD exacerbation. She was started on IV lasix due to her acute systolic CHF exacerbation. Her symptoms started improving slowly. Today she is on 3 lit O2, which is her baseline. She would like to go back to ECF today to resume her PT / OT. So will d/c her back to ECF in stable condition today. Recommend to start physical activity / PT / OT as she tolerates due to her COPD exacerbation - Time Spent with Patient Total time spent providing and/or coordinating discharge services: - Discharge Medications Prescriptions: Amoxicillin/Clavulanate [Augmentin] 875 mg PO BIDWM #6 tablet predniSONE [PredniSONE] 40 mg PO BIDWM #18 tablet Home Medications: Albuterol Sulfate [Ventolin Hfa] 2 puff IH Q4H PRN 08/09/17 [History] Aspirin [Lo-Dose Aspirin EC] 81 mg PO DAILY 08/09/17 [History] Sertraline [Zoloft] 25 mg PO DAILY 08/09/17 [History] Lisinopril [Zestril] 5 mg PO DAILY tablet 08/18/17 [Rx] Metoprolol XL (24 HR) Succ [Toprol Xl] 50 mg PO DAILY tab.er.24h 08/18/17 [Rx] Tiotropium [Spiriva] 18 mcg IH DAILYR inh 08/18/17 [Rx] Atorvastatin Calcium [Lipitor] 20 mg PO HS 08/27/17 [History] Fluticasone/Vilanterol [Breo Ellipta 200-25 Mcg INH] 1 puff IH DAILY 08/27/17 [ History] Potassium Chloride [Klor-Con 10] 10 meq PO DAILY 08/27/17 [History] Warfarin [Coumadin] 2 mg PO DAILY 08/27/17 [History] Amoxicillin/Clavulanate [Augmentin] 875 mg PO BIDWM #6 tablet 08/31/17 [Rx] Furosemide [Lasix] 20 mg PO BID #0 tablet 08/31/17 [Rx] Ipratropium/Albuterol Neb [Duoneb] 3 ml IH Q6HR PRN #0 08/31/17 [Rx] predniSONE [PredniSONE] 40 mg PO BIDWM #18 tablet 08/31/17 [Rx] Allergies/Adverse Reactions: 3 Allergy/AdvReac Type Severity Reaction Status Date / Time codeine Allergy Vomiting Verified 08/27/17 08:17 Date of admission: 08/27/17 11:59 Primary care physician: PCP NONE Consults: 08/27/17 12:48 Consult to Cargo Router [CONS] Routine Reason for SW Consult: [facility] would like to return there when discharged 08/31/17 07:18 Consult to Nurse Navigator [CONS] Routine Comment: CHF - Constitutional Vitals: Temp Pulse Resp BP Pulse Ox 97.6 F 101 18 138/78 95 08/31/17 07:25 08/31/17 07:25 08/31/17 07:25 08/31/17 07:25 08/31/17 07:25 General appearance: Present: A&O X 3, answers questions appropriately - Head Head exam: Present: atraumatic, normal inspection - Neck Neck exam general surgery: Present: supple - Respiratory Respiratory exam: Present: decreased breath sounds, wheezes (mild to moderate). Absent: rales, respiratory distress, rhonchi - Cardiovascular Cardiovascular exam: Present: RRR, +S1, +S2. Absent: tachycardia - GI/Abdominal GI/Abdominal exam: Present: normal bowel sounds, soft. Absent: guarding, rebound, rigid, tenderness - Extremities Exam Extremities exam: Absent: calf tenderness, pedal edema, tenderness - Back Exam Back exam: Absent: CVA tenderness (L), CVA tenderness (R) - Neurological Exam Neurological exam: Present: alert, oriented X3 - Psychiatric Psychiatric exam: Present: normal affect, normal mood - Patient Status Disposition: Transfer SNF Condition: Good Overall status at discharge: patient is back to baseline - Discharge Instructions Follow Up With: NONE,PCP [Primary Care Provider] - (Patient is from [facility]) - Diet and Activity Activity: increase activity as tolerated Diet: low salt diet
--- NOTE | 2017-08-31 09:28 | Physician Discharge Referral ---
ExtendedCare Referral Info Transfer To: [facility] Provider in Charge after Transfer: PCP Institutional Level of Care: Skilled - Diagnosis (1) Acute on chronic systolic (congestive) heart failure Status: Acute (2) Sepsis Status: Acute (3) Acute and chronic respiratory failure with hypoxia Status: Acute (4) Pulmonary edema Status: Acute (5) HCAP (healthcare-associated pneumonia) Status: Acute (6) Acute exacerbation of chronic obstructive airways disease Status: Acute (7) Chronic a-fib Status: Acute - Transfer Medications Prescriptions: Amoxicillin/Clavulanate [Augmentin] 875 mg PO BIDWM #6 tablet predniSONE [PredniSONE] 40 mg PO BIDWM #18 tablet Home Medications: Albuterol Sulfate [Ventolin Hfa] 2 puff IH Q4H PRN 08/09/17 [History] Aspirin [Lo-Dose Aspirin EC] 81 mg PO DAILY 08/09/17 [History] Sertraline [Zoloft] 25 mg PO DAILY 08/09/17 [History] Lisinopril [Zestril] 5 mg PO DAILY tablet 08/18/17 [Rx] Metoprolol XL (24 HR) Succ [Toprol Xl] 50 mg PO DAILY tab.er.24h 08/18/17 [Rx] Tiotropium [Spiriva] 18 mcg IH DAILYR inh 08/18/17 [Rx] Atorvastatin Calcium [Lipitor] 20 mg PO HS 08/27/17 [History] Fluticasone/Vilanterol [Breo Ellipta 200-25 Mcg INH] 1 puff IH DAILY 08/27/17 [ History] Potassium Chloride [Klor-Con 10] 10 meq PO DAILY 08/27/17 [History] Warfarin [Coumadin] 2 mg PO DAILY 08/27/17 [History] Amoxicillin/Clavulanate [Augmentin] 875 mg PO BIDWM #6 tablet 08/31/17 [Rx] Furosemide [Lasix] 20 mg PO BID #0 tablet 08/31/17 [Rx] Ipratropium/Albuterol Neb [Duoneb] 3 ml IH Q6HR PRN #0 08/31/17 [Rx] predniSONE [PredniSONE] 40 mg PO BIDWM #18 tablet 08/31/17 [Rx] Allergies/Adverse Reactions: 3 Allergy/AdvReac Type Severity Reaction Status Date / Time codeine Allergy Vomiting Verified 08/27/17 08:17 - Respiratory Orders Smoking Cessation: Smoking cessation has been advised. For more information, call the [place] Tobacco Quit Line at 8-619-FUSO-NOW. CERTIFICATION: I certify that the transfer of the above named patient to an Extended Care Facility is necessary for the continuing treatment of the diagnosis listed. The above information is true and accurate reflection of patient's current condition. Confidential - Redisclosure prohibited without a patient's written consent.
[2017-08-31] MEDS ORDERED: *HR* Metoprolol 5 MG/5 ML VIAL IVP ONE ×2 (09:46→09:51)
[2017-08-31] MEDS: Budesonide/Formoterol 160/4.5 MDI IH SCH ×2 (11:15→21:47)
[2017-08-31] MEDS ORDERED: Metoprolol XL (24 HR) Succ 25 MG TAB.ER.24H PO ONE (11:17)
--- NOTE | 2017-08-31 14:30 | Electrocardiograph Report ---
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
--- NOTE | 2017-08-31 14:39 | Event Note ---
Date of Encounter: 08/31/17 Time of Encounter: 14:37 Pt's HR is fluctuating with simple exertion. So will hold discharge for today and Increased her Metoprolol XL to 75mg PO Daily. Talked to pt, her son at bed side and explained to them about current care.
--- NOTE | 2017-08-31 14:45 | Electrocardiograph Report ---
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
[2017-08-31] MEDS: predniSONE 20 MG TABLET PO SCH (16:50)
[2017-08-31] MEDS ORDERED: *HR* Warfarin 2 MG TABLET PO ONE (18:00)
[2017-09-01] MEDS: Ipratropium/Albuterol Neb 3 ML IH SCH ×2 (03:13→09:43)
[2017-09-01 06:33] LABS: INR 2.2; Prothrombin Time 24.5 Seconds (9.4-12.1)
[2017-09-01 07:05] VITALS: BP 126/82
--- NOTE | 2017-09-01 07:53 | Internal Med Progress Note ---
Date of Encounter: 09/01/17 Time of Encounter: 07:30 - Assessment and plan (1) Acute on chronic systolic (congestive) heart failure Current Visit: Yes Status: Acute Assessment and plan: She does have acute systolic CHF exacerbation reviewed her LHC and 2 D Echo from 07/29 Switched to PO Lasix 20 BID strict I & O cont BB, ASA and Statin Pt stable to d/c back to ECF today (2) Sepsis Current Visit: Yes Status: Acute Assessment and plan: Did meet SIRS criteria with elevated WBC, tachycardia and source of inf as PNA improved Qualifiers: Sepsis type: sepsis due to unspecified organism Qualified Code(s): A41.9 - Sepsis, unspecified organism (3) Acute and chronic respiratory failure with hypoxia Current Visit: Yes Status: Acute Assessment and plan: Currently on 3 lit O2 cont empirical abx cont duoneb switched to PO steroids (4) Pulmonary edema Current Visit: Yes Status: Acute Assessment and plan: Due to PNA + CHF exacerbation Improved Qualifiers: Chronicity: acute Qualified Code(s): J81.0 - Acute pulmonary edema (5) HCAP (healthcare-associated pneumonia) Current Visit: Yes Status: Acute Assessment and plan: Mostly bacterial Switched to PO Abx (6) Acute exacerbation of chronic obstructive airways disease Current Visit: Yes Status: Acute Assessment and plan: Cont Duoneb Started her on IV steroids cont O2 (7) Chronic a-fib Current Visit: Yes Status: Acute Assessment and plan: rate fairly controlled y/d due to resp distress inc her Metoprolol XL to 75 mg today her HR well controlled in 70's cont Coumadin for anti coag will d/c her back to ECF today for short term PT / OT - Time Spent With Patient Total time spent is greater than 50% in coordination of care (as documented) at patient's floor/unit and/or counseling patient: - Subjective Interval history: Ms. Munoz is a 76 year old female with history of HTN, HLD, cardiomyopathy, afib , Systolic heart failure, COPD and chronic hypoxic resp failure with 3 lit home O2 dependent, CAD who recently had [facility] showed moderate two vessel CAD of LAD and Mid RCA, now pt was sent to our ER with hypoxia on her home O2 of 3L, she was dyspneic and had associated diaphoresis. Pt CXR showed b/l infiltrates and interstitial edema. She was admitted here and started her on empirical abx Levaquin annd continue PO lasix. Pt stated she is feeling much better today. Her HR in 70's now. Feels like she is at baseline. - Constitutional Vitals: Temp Pulse Resp BP Pulse Ox 98.2 F 91 18 126/82 97 09/01/17 06:59 09/01/17 06:59 09/01/17 06:59 09/01/17 06:59 09/01/17 06:59 General appearance: Present: A&O X 3, answers questions appropriately - Head Head exam: Present: atraumatic, normal inspection - Neck Neck exam general surgery: Present: supple - Respiratory Respiratory exam: Present: decreased breath sounds, wheezes (mild to moderate). Absent: rales, respiratory distress, rhonchi - Cardiovascular Cardiovascular exam: Present: RRR, +S1, +S2. Absent: tachycardia - GI/Abdominal GI/Abdominal exam: Present: normal bowel sounds, soft. Absent: rebound, rigid, tenderness - Extremities Exam Extremities exam: Absent: calf tenderness, pedal edema, tenderness - Back Exam Back exam: Absent: CVA tenderness (L), CVA tenderness (R) - Neurological Exam Neurological exam: Present: alert, oriented X3 - Psychiatric Psychiatric exam: Present: normal affect, normal mood Internal Medicine: Result - Labs CBC & Chem 7: 08/30/17 07:51 08/31/17 05:54 - ABG Interpretation ABG results: ABG ABG pH 7.42 pH Units (7.32-7.45) 08/27/17 16:05 ABG pCO2 58 mmHg (35-45) H 08/27/17 16:05 ABG pO2 72 mmHg (85-104) L 08/27/17 16:05 ABG O2 Saturation 94 % (95-98) L 08/27/17 16:05 PT/INR, D-dimer PT 24.5 Seconds (9.4-12.1) H 09/01/17 05:56 Consult Discharge Plan - Plan Referrals: NONE,PCP [Primary Care Provider] - (Patient is from [facility]) Prescriptions: Amoxicillin/Clavulanate [Augmentin] 875 mg PO BIDWM #6 tablet predniSONE [PredniSONE] 40 mg PO BIDWM #18 tablet
[2017-09-01] MEDS: predniSONE 20 MG TABLET PO SCH (07:56)
[2017-09-01] MEDS: Aspirin Enteric Coated 81 MG Tablet PO SCH (07:56)
[2017-09-01] MEDS: Furosemide 20 MG/2 ML VIAL IVP SCH (07:56)
[2017-09-01] MEDS: cefTRIAXone 1,000 MG in Water for inj. (sterile) 20 ML 10 ML IVP SCH (07:56)
[2017-09-01] MEDS ORDERED: Metoprolol XL (24 HR) Succ 50 MG TAB.ER.24H PO SCH (09:00)
[2017-09-01] MEDS: Budesonide/Formoterol 160/4.5 MDI IH SCH (09:43)
[2017-09-01] MEDS ORDERED: *HR* Warfarin 1 MG TABLET PO ONE (18:00)
== END 2017-09-01 09:59 | DRG 871 ==
LOC: EMEROO 08:15 → 2ANU 08:15
PROVIDERS: ADMIT General Practice; ATTEND General Practice

== ENCOUNTER 2017-09-22 17:51 | Inpatient (IN) ==
[2017-09-22] MEDS ORDERED: methylPREDNISolone 125 MG/2 ML VIAL IVP ONE (17:55)
[2017-09-22] MEDS ORDERED: Ipratropium/Albuterol Neb 3 ML IH ONE ×2 (17:55→19:09)
--- NOTE | 2017-09-22 17:58 | Emergency Department Note ---
Disposition Clinical Impression: Acute exacerbation of chronic obstructive airways disease CHF (congestive heart failure) Qualifiers: Heart failure type: unspecified Heart failure chronicity: acute Qualified Code( s): I50.9 - Heart failure, unspecified Disposition: Admitted As Inpatient Condition: Fair Referrals: NONE,PCP [Primary Care Provider] - Time of Disposition: 19:08 SOB HPI - General Stated Complaint: MISTY Time Seen by Provider: 09/22/17 17:53 Source: patient, EMS Mode of arrival: EMS Limitations: no limitations Nursing Notes Reviewed: Yes Vital Signs Reviewed: Yes - History of Present Illness 77-year-old female with a history COPD comes in with increasing shortness of breath. Patient's pulse ox at the facility was 76 on oxygen. Squad was called they gave her breathing treatment and put her on additional oxygen she is up to 92%. Echocardiogram shows an EF of about 35%. 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 Severity: moderate Consistency/Duration: constant Improves with: oxygen, bronchodilators Worsens with: exertion Known history of: COPD Associated symptoms: Reports: cough, wheezing Treatment prior to arrival: oxygen, bronchodilator Cough present: Yes Cough Description: Involuntary Cough Frequency: Intermittent - Related Data Home Medications Medication Instructions Recorded Confirmed Albuterol Sulfate [Ventolin Hfa] 2 puff IH Q4H PRN 08/09/17 08/27/17 Aspirin [Lo-Dose Aspirin EC] 81 mg PO DAILY 08/09/17 08/27/17 Sertraline [Zoloft] 25 mg PO DAILY 08/09/17 08/27/17 Atorvastatin Calcium [Lipitor] 20 mg PO HS 08/27/17 08/27/17 Fluticasone/Vilanterol [Breo 1 puff IH DAILY 08/27/17 08/27/17 Ellipta 200-25 Mcg INH] Potassium Chloride [Klor-Con 10] 10 meq PO DAILY 08/27/17 08/27/17 Warfarin [Coumadin] 2 mg PO DAILY 08/27/17 08/27/17 Previous Rx's Medication Instructions Recorded Lisinopril [Zestril] 5 mg PO DAILY tablet 08/18/17 Tiotropium [Spiriva] 18 mcg IH DAILYR inh 08/18/17 Amoxicillin/Clavulanate [Augmentin] 875 mg PO BIDWM #6 tablet 08/31/17 Furosemide [Lasix] 20 mg PO BID #0 tablet 08/31/17 Ipratropium/Albuterol Neb [Duoneb] 3 ml IH Q6HR PRN #0 08/31/17 Metoprolol XL (24 HR) Succ [Toprol 75 mg PO DAILY tab.er.24h 08/31/17 Xl] predniSONE [PredniSONE] 40 mg PO BIDWM #18 tablet 08/31/17 Lisinopril [Zestril] 10 mg PO DAILY #30 tablet 09/17/17 Allergies Allergy/AdvReac Type Severity Reaction Status Date / Time codeine Allergy Vomiting Verified 08/27/17 08:17 All systems ED: reviewed and negative except as stated. Constitutional: Denies: fever, chills, weakness, weight change Eyes: Denies: eye pain, eye discharge, vision change ENT ED: Denies: ear pain, throat pain, dental pain, hearing loss, epistaxis, congestion, dysphagia Cardiovascular: Denies: chest pain, palpitations, dyspnea on exertion, edema, syncope Respiratory: Reports: cough, dyspnea, wheezes. Denies: hemoptysis, stridor Gastrointestinal: Denies: abdominal pain, nausea, vomiting, diarrhea, constipation, hematemesis, melena, hematochezia Genitourinary: Denies: dysuria, frequency, hematuria, discharge Musculoskeletal: Denies: back pain, neck pain, arthralgia, myalgia Integumentary: Denies: rash, abrasion, lesions Neurological: Denies: headache, weakness, numbness, paresthesias, confusion, abnormal gait, vertigo Psychiatric: Denies: anxiety, depression, suicidal thoughts, homicidal thoughts , auditory hallucinations, visual hallucinations Endocrine: Denies: fatigue Hematological/Lymphatic: Denies: easy bleeding, easy bruising Allergic/Immunologic: Denies: facial swelling, urticaria Past Medical History - Past Medical History Medical history: Reports: atrial fibrillation, COPD, hypertension Psychiatric history: Reports: anxiety - Social History Smoking Status: Former smoker Smokeless Tobacco Status: No Alcohol use: Reports: none Drug use: Reports: none Physical Exam - General Limitations: no limitations General appearance: alert, in no apparent distress - Head Head exam: atraumatic, normocephalic, normal inspection - Eye Eye exam: Present: normal appearance, PERRL, EOMI - ENT ENT exam: normal exam, normal oropharynx, mucous membranes moist - Neck Neck exam: Present: normal inspection, full ROM, trachea midline - Chest Chest inspection: Present: normal inspection, symmetric chest wall rise - Respiratory Respiratory exam: Present: wheezes, accessory muscle use, prolonged expiratory phase - Cardiovascular Cardiovascular exam: Present: regular rate, normal rhythm, normal heart sounds - Abdominal Exam Abdominal exam: Present: soft, Non-Tender. Absent: tenderness, distention, guarding, rebound, rigidity - Extremities Exam Extremities exam: Present: normal inspection, full ROM. Absent: tenderness, pedal edema - Expanded Lower Extremity Exam Neurovascular/Tendon exam: Absent: motor deficit, sensory deficit, tendon deficit Gait: observed and normal - Back Exam Back exam: Present: normal inspection, full ROM. Absent: tenderness - Neurological Exam Neurological exam: Present: alert, oriented X3 - Psychiatric Psychiatric exam: Present: normal affect, normal mood - Skin Skin exam: Present: warm, dry, intact, normal color Course - Reevaluation(s) Reevaluation #1: 77-year-old female with history COPD comes in with increasing shortness of breath low pulse ox. A chest x-ray shows signs of congestive changes her BNP is elevated patient was given 2 DuoNeb's of Solu-Medrol and Lasix IV patient will be admitted for further evaluation and treatment. Time: 19:53 - Consultations Consultation #1: Discussed with , admit Time: 19:58 Vital Signs Temperature 97.7 F 09/22/17 17:53 Pulse Rate 95 09/22/17 17:53 Respiratory Rate 153 09/22/17 17:53 Blood Pressure 153/80 09/22/17 17:53 O2 Sat by Pulse Oximetry 95 09/22/17 17:53 Temperature 97.7 F 09/22/17 17:53 Pulse Rate 95 09/22/17 17:53 Respiratory Rate 16 09/22/17 19:50 Blood Pressure 153/80 09/22/17 17:53 O2 Sat by Pulse Oximetry 99 09/22/17 19:50 Oxygen Delivery Oxygen Delivery Nasal Cannula Shortness of Breath/Dyspnea - Lab Data Lab results reviewed: Yes I reviewed the patient's lab results. Result diagrams: 09/22/17 18:29 09/22/17 18:29 Lab Results 09/22/17 09/22/17 09/22/17 Range/Units 18:29 18:29 18:29 WBC 7.8 (4.3-11.1) K/mcL RBC 4.10 (3.82-4.97) M/mcL Hgb 12.7 (11.5-15.4) g/dL Hct 40.8 (35.3-44.9) % MCV 99.5 (83.0-100.0) fL MCH 31.0 (28.0-33.3) pg MCHC 31.1 L (31.6-35.5) g/dL RDW 13.8 (11.5-14.5) % Plt Count 234 (140-400) K/mcL MPV 11.1 (9.4-12.4) fL Immature Gran % 0.3 (0-4) % Seg Neutrophils % 67.5 % Lymphocytes % 21.0 % Monocytes % 6.2 % Eosinophils % 4.5 % Basophils % 0.5 % Neutrophils # 5.3 (1.6-8.9) K/mcL Lymphocytes # 1.6 (0.6-4.6) K/mcL Monocytes # 0.5 (0.0-1.3) K/mcL Eosinophils # 0.4 (0.0-0.6) K/mcL Basophils # 0.0 (0.0-0.2) K/mcL Sodium 137 (136-145) mEq/L Potassium 4.8 (3.5-5.1) mEq/L Chloride 96 L (98-107) mEq/L Carbon Dioxide 32 H (23-29) mEq/L BUN 19 (8-23) mg/dL Creatinine 0.63 (0.60-1.20) mg/dL Est GFR ( Amer) > 60 (> 60) Est GFR (Non-Af Amer) > 60 (> 60) BUN/Creatinine Ratio 30 H (6-26) Glucose 136 H (70-105) mg/dL Calculated Osmolality 288 (280-300) Lactic Acid 0.9 (0.5-2.2) mmol/L Calcium 9.5 (8.6-10.3) mg/dL Troponin I 0.03 (< 0.04) ng/mL B-Natriuretic Peptide (Less than 100) pg/mL Urine Color (Yellow) Urine Clarity (Clear) Urine pH (5.0-8.0) pH Units Ur Specific [place] (1.010-1.025) Urine Protein (Neg-Trace) mg/dL Urine Glucose (UA) (Normal) mg/dL Urine Ketones (Negative) mg/dL Urine Blood (Negative) Urine Nitrite (Negative) Urine Bilirubin (Negative) Urine Urobilinogen (Normal) mg/dL Ur Leukocyte Esterase (Negative) Ur Culture Indicated? (NO) 09/22/17 09/22/17 Range/Units 18:29 19:20 WBC (4.3-11.1) K/mcL RBC (3.82-4.97) M/mcL Hgb (11.5-15.4) g/dL Hct (35.3-44.9) % MCV (83.0-100.0) fL MCH (28.0-33.3) pg MCHC (31.6-35.5) g/dL RDW (11.5-14.5) % Plt Count (140-400) K/mcL MPV (9.4-12.4) fL Immature Gran % (0-4) % Seg Neutrophils % % Lymphocytes % % Monocytes % % Eosinophils % % Basophils % % Neutrophils # (1.6-8.9) K/mcL Lymphocytes # (0.6-4.6) K/mcL Monocytes # (0.0-1.3) K/mcL Eosinophils # (0.0-0.6) K/mcL Basophils # (0.0-0.2) K/mcL Sodium (136-145) mEq/L Potassium (3.5-5.1) mEq/L Chloride (98-107) mEq/L Carbon Dioxide (23-29) mEq/L BUN (8-23) mg/dL Creatinine (0.60-1.20) mg/dL Est GFR ( Amer) (> 60) Est GFR (Non-Af Amer) (> 60) BUN/Creatinine Ratio (6-26) Glucose (70-105) mg/dL Calculated Osmolality (280-300) Lactic Acid (0.5-2.2) mmol/L Calcium (8.6-10.3) mg/dL Troponin I (< 0.04) ng/mL B-Natriuretic Peptide 577 H (Less than 100) pg/mL Urine Color Yellow (Yellow) Urine Clarity Clear (Clear) Urine pH 6.5 (5.0-8.0) pH Units Ur Specific [place] 1.015 (1.010-1.025) Urine Protein Negative (Neg-Trace) mg/dL Urine Glucose (UA) Normal (Normal) mg/dL Urine Ketones Negative (Negative) mg/dL Urine Blood Negative (Negative) Urine Nitrite Negative (Negative) Urine Bilirubin Negative (Negative) Urine Urobilinogen Normal (Normal) mg/dL Ur Leukocyte Esterase Negative (Negative) Ur Culture Indicated? NO (NO) - Radiology Data Radiology results reviewed: Yes I reviewed the patient's radiology results. Chest X-Ray 09/22/17 17:55 IMPRESSION: COPD, with prominent basilar interstitial change with some [place] lines which may represent mild dependent edema. There is also a suspected very small right pleural effusion. D/ / Emil Jiménez MD / Emil Jiménez MD Interpreting Provider: Emil Jiménez MD - EKG Data EKG attestation: Yes I reviewed and interpreted this EKG. EKG shows normal: Reports: sinus rhythm Rate: Reports: normal Rhythm: Reports: NSR Interpretation: Reports: no acute changes
[2017-09-22 19:04] LABS: Troponin I 0.03 ng/mL (< 0.04)
[2017-09-22] MEDS ORDERED: Furosemide 40 MG/4 ML VIAL IVP ONE (19:07)
[2017-09-22 19:09] LABS: BUN/Creatinine Ratio 30 (6-26); Blood Urea Nitrogen 19 mg/dL (8-23); Calcium 9.5 mg/dL (8.6-10.3); Carbon Dioxide 32 mEq/L (23-29); Chloride 96 mEq/L (98-107); Glucose 136 mg/dL (70-105); Osmolality,Calculated 288 (280-300); Potassium 4.8 mEq/L (3.5-5.1); Sodium 137 mEq/L (136-145); eGFR For African Americans > 60 (> 60); eGFR For Non-African Americans > 60 (> 60)
[2017-09-22 19:13] LABS: Basophils % 0.5 %; Eosinophils # 0.4 K/mcL (0.0-0.6); Eosinophils % 4.5 %; Hematocrit 40.8 % (35.3-44.9); Hemoglobin 12.7 g/dL (11.5-15.4); Immature Granulocytes % 0.3 % (0-4); Lymphocytes # 1.6 K/mcL (0.6-4.6); Mean Corpuscular HGB Conc 31.1 g/dL (31.6-35.5); Mean Corpuscular Volume 99.5 fL (83.0-100.0); Mean Platelet Volume 11.1 fL (9.4-12.4); Monocytes # 0.5 K/mcL (0.0-1.3); Monocytes % 6.2 %; Neutrophils # 5.3 K/mcL (1.6-8.9); Platelet Count 234 K/mcL (140-400); Red Cell Distribution Width 13.8 % (11.5-14.5); Segmented Neutrophils % 67.5 %
[2017-09-22 19:30] LABS: Bilirubin,Urine Negative (Negative); Blood,Urine Negative (Negative); Clarity,Urine Clear (Clear); Color,Urine Yellow (Yellow); Glucose,Urine (UA) Normal (Normal); Ketones,Urine Negative (Negative); Leukocyte Esterase,Urine Negative (Negative); Nitrite,Urine Negative (Negative); PH,Urine 6.5 pH Units (5.0-8.0); Protein,Urine Negative (Neg-Trace); Specific Gravity,Urine 1.015 (1.010-1.025); Urobilinogen,Urine Normal (Normal)
[2017-09-22] MEDS ORDERED: Acetaminophen 325 MG TABLET PO PRN (20:51)
[2017-09-22] MEDS ORDERED: Naloxone 0.4 MG/ML INJ IVP PRN (20:51)
[2017-09-22] MEDS ORDERED: Albuterol 2.5 MG/3 ML NEBULIZER IH PRN (20:58)
--- NOTE | 2017-09-22 21:09 | Internal Med History&Physical ---
Date of Encounter: 09/22/17 Time of Encounter: 20:30 Internal Medicine - H&P: HPI Chief complaint: short of breath Admitted From: Emergency Dept Plans for Post Hospital Care: [facility] History of present illness: Ms. Munoz is a 77 year old female [facility]. She has been undergoing therapy at a local ECF since her last hospitalization a month ago. She had been doing well and then developed sudden onset of shortness of breath with diaphoresis, anxiety, and palpitations this evening. She was noted to have hypoxemia by the nursing staff with an O2 saturation of 76%. She was placed on oxygen and transferred to the ER for evaluation. In the ER, staff felt that she was having COPD flareup. However, chest x-ray, labs, and clinical exam exam suggested possible CHF as well. She was therefore treated for both and was admitted to hospitalist service. Upon my assessment of the patient, she is feeling significantly better. She is putting out a significant amount of urine in her Last bag and has improved significantly since presentation. She has a long-standing history of severe COPD and wears oxygen chronically at 2-3 L per nasal cannula. She denies a prior history of any heart problems until last admission where she was diagnosed with heart failure and nonobstructive coronary disease. Her ejection fraction is 35-40%. She also has a history of paroxysmal atrial fibrillation and remains on Coumadin. She denies any recent fevers, chills, productive cough , significant wheezing, nausea, vomiting, or diarrhea. She has noted some increased swelling of her legs and worsening dyspnea especially with exertion. Past Med Surg Social Fam HX - Past Medical History Attestation: Yes The following information was validated with the patient. Source: patient, old records reviewed, obtained from family Medical history: atrial fibrillation, CHF, COPD, hypertension Psychiatric history: anxiety - Past Surgical History Additional surgical history: lung biopsy. thoracotomy - Social History Smoking Status: Former smoker Smokeless Tobacco Status: No Alcohol use: none Drug use: none Current living situation: [facility] Activity Level: Uses cane/walker Recent Out of Country Travel Within the Last 8 Weeks: No - Family History Mother Living Status: Hx Family Cardiac Disorders: Yes Hx Family Neurologic Disorders: Yes Father Living Status: Hx Family Cardiac Disorders: Yes Internal Medicine - H&P: Meds Albuterol Sulfate [Ventolin Hfa] 2 puff IH Q4H PRN 08/09/17 [History] Aspirin [Lo-Dose Aspirin EC] 81 mg PO DAILY 08/09/17 [History] Sertraline [Zoloft] 25 mg PO DAILY 08/09/17 [History] Tiotropium [Spiriva] 18 mcg IH DAILYR inh 08/18/17 [Rx] Atorvastatin Calcium [Lipitor] 20 mg PO HS 08/27/17 [History] Potassium Chloride [Klor-Con 10] 10 meq PO DAILY 08/27/17 [History] Warfarin [Coumadin] 2 mg PO DAILY 08/27/17 [History] Furosemide [Lasix] 20 mg PO BID #0 tablet 08/31/17 [Rx] Ipratropium/Albuterol Neb [Duoneb] 3 ml IH Q6HR PRN #0 08/31/17 [Rx] Metoprolol XL (24 HR) Succ [Toprol Xl] 75 mg PO DAILY tab.er.24h 08/31/17 [Rx] Lisinopril [Zestril] 10 mg PO DAILY #30 tablet 09/17/17 [Rx] 3 Allergy/AdvReac Type Severity Reaction Status Date / Time codeine Allergy Vomiting Verified 09/22/17 20:18 - Constitutional Constitutional: fatigue, weight gain, no chills, no fever(s), no night sweats - EENT Eyes: no blurry vision, no change in vision Ears: no tinnitus Nose, mouth and throat: no nasal congestion, no sinus pressure, no sore throat - Cardiovascular Cardiovascular ROS IM: diaphoresis, dyspnea, dyspnea on exertion, edema, no chest pain, no syncope - Respiratory Respiratory: dyspnea, no cough, no hemoptysis, no chest congestion, no excessive phlegm production, no change in phlegm color, no pain with cough - Gastrointestinal Gastrointestinal: no abdominal pain, no diarrhea, no nausea, no vomiting - Genitourinary Genitourinary: no dysuria, no hematuria - Musculoskeletal Musculoskeletal ROS IM: no back pain, no joint swelling - Integumentary Integumentary IM: no rash - Neurological Neurological ROS: no focal weakness, no frequent falls, no headache(s) - Psychiatric Psychiatric: no anxiety, no depression - Endocrine Endocrine IM: no polydipsia, no polyuria - Hematologic/Lymphatic Hematologic/Lymphatic: easy bruising - Allergic/Immunologic Allergic/Immunologic: no GI upset with certain foods - Constitutional Vitals: Temp Pulse Resp BP Pulse Ox 97.7 F 98 19 145/78 95 09/22/17 17:53 09/22/17 20:05 09/22/17 20:05 09/22/17 20:05 09/22/17 20:05 General appearance: Present: cooperative, mild distress, A&O X 3, pleasant, answers questions appropriately - Head Head exam: Present: atraumatic, normal inspection - Eye Eye exam: Present: EOMI, PERRL. Absent: scleral icterus Pupils: Present: normal accommodation - ENT ENT exam: Present: mucous membranes dry, normal exam, normal oropharynx - Neck Neck exam general surgery: Present: full ROM, supple. Absent: lymphadenopathy, tenderness, nuchal rigidity - Respiratory Respiratory exam: Present: accessory muscle use, decreased breath sounds, prolonged expiratory phase, rales (both bases ), respiratory distress (mild), rhonchi. Absent: chest wall tenderness, wheezes - Cardiovascular Cardiovascular exam: Present: distant heart sounds, RRR, +S1, +S2. Absent: diastolic murmur, systolic murmur - GI/Abdominal GI/Abdominal exam: Present: normal bowel sounds, soft. Absent: guarding, hepatomegaly, mass, rebound, splenomegaly, tenderness - Extremities Exam Extremities exam: Present: full ROM, normal capillary refill, pedal edema (2+), warm, radial pulses palpable and symmetrical. Absent: calf tenderness, joint swelling, tenderness - Back Exam Back exam: Present: normal inspection. Absent: CVA tenderness (L), CVA tenderness (R) - Neurological Exam Neurological exam: Present: alert, CN II-XII intact, oriented X3, no focal deficits - Psychiatric Psychiatric exam: Present: normal affect, normal mood - Skin Skin exam: Present: dry, warm. Absent: rash Internal Med - H&P Results - Labs CBC & Chem 7: 09/22/17 18:29 09/22/17 18:29 Labs: Short CBC 09/22/17 Range/Units 18:29 WBC 7.8 (4.3-11.1) K/mcL Hgb 12.7 (11.5-15.4) g/dL Hct 40.8 (35.3-44.9) % Plt Count 234 (140-400) K/mcL Neutrophils # 5.3 (1.6-8.9) K/mcL BMP 09/22/17 18:29 Sodium 137 Potassium 4.8 Chloride 96 L Carbon Dioxide 32 H BUN 19 Creatinine 0.63 Glucose 136 H Calcium 9.5 Cardiac Enzymes 09/22/17 Range/Units 18:29 Troponin I 0.03 (< 0.04) ng/mL Urine 09/22/17 Range/Units 19:20 Urine Color Yellow (Yellow) Urine Clarity Clear (Clear) Urine pH 6.5 (5.0-8.0) pH Units Ur Specific [place] 1.015 (1.010-1.025) Urine Protein Negative (Neg-Trace) mg/dL Urine Glucose (UA) Normal (Normal) mg/dL - EKG Data -: EKG Interpreted by Myself EKG shows normal: sinus rhythm - EKG Data Prior EKG available for review: no EKG comments: 09/22/17 21:14 LVH; no acute ST-T changes - Impressions ITS Impressions Chest X-Ray 09/22/17 17:55 IMPRESSION: COPD, with prominent basilar interstitial change with some [place] lines which may represent mild dependent edema. There is also a suspected very small right pleural effusion. D/ / Emil Jiménez MD / Emil Jiménez MD Interpreting Provider: Emil Jiménez MD - Diagnostic Studies Chest x-ray Status: image reviewed by me (Poor quality image -- rotated; findings suggest CHF) - VTE Reasons for not Prescribing Prophylaxis: Not indicated-Anticoagulated or INR therapeutic - Assessment and plan (1) Acute and chronic respiratory failure with hypoxia Current Visit: Yes Status: Acute Assessment and plan: 1. Likely due to acute CHF exacerbation and possible COPD flare. 2. Wean oxygen as tolerated. 3. Continue BiPap QHS per home settings. 4. Will schedule DuoNeb aerosols, PRN Albuterol aerosols, and steroids. 5. Blood cultures obtained in ER. 6. Levaquin IVP ordered. May stop if clinical course dictates CHF as likely cause for acute respiratory failure. (2) Acute on chronic systolic (congestive) heart failure Current Visit: Yes Status: Acute Assessment and plan: 1. Will schedule IV diuretics and fluid restriction. 2. Convert IV to oral diuretics when clinically improved. 3. Monitor electrolytes closely and treat as necessary. 4. Will trend troponins. (3) A-fib Current Visit: Yes Status: Chronic Assessment and plan: 1. Currently in NSR. 2. Continue home meds as appropriate. 3. Coumadin dosing per pharmacy. Qualifiers: Atrial fibrillation type: paroxysmal Qualified Code(s): I48.0 - Paroxysmal atrial fibrillation (4) DVT prophylaxis Current Visit: No Status: Acute Assessment and plan: 1. Continue Coumadin. 2. Monitor PT/INR.
[2017-09-22] MEDS: Ipratropium/Albuterol Neb 3 ML IH SCH (22:13)
[2017-09-22] MEDS: Levofloxacin 500 MG/100 ML 500 MG/100 ML BAG IVPB SCH (23:33)
[2017-09-22 23:34] LABS: INR 2.7; Prothrombin Time 30.2 Seconds (9.4-12.1)
[2017-09-23] MEDS: Ipratropium/Albuterol Neb 3 ML IH SCH ×4 (03:45→21:31)
[2017-09-23 07:00] LABS: Basophils % 0.2 %; Hemoglobin 12.2 g/dL (11.5-15.4); Immature Granulocytes % 0.4 % (0-4); Lymphocytes # 0.8 K/mcL (0.6-4.6); Mean Corpuscular HGB Conc 31.3 g/dL (31.6-35.5); Mean Platelet Volume 11.6 fL (9.4-12.4); Monocytes # 0.3 K/mcL (0.0-1.3); Monocytes % 4.4 %; Neutrophils # 4.6 K/mcL (1.6-8.9); Platelet Count 240 K/mcL (140-400); Red Blood Count 3.94 M/mcL (3.82-4.97); Red Cell Distribution Width 13.5 % (11.5-14.5)
[2017-09-23] MEDS ORDERED: MethylPREDNISolone 40 MG/ML VIAL IVP ONE (07:00)
[2017-09-23 07:09] LABS: INR 2.9; Prothrombin Time 31.9 Seconds (9.4-12.1)
[2017-09-23 07:12] LABS: Activated Partial Thrombo Time 39.6 Seconds (26.0-36.0)
[2017-09-23 07:13] LABS: Alanine Aminotransferase 21 Units/L (7-52); Albumin 4.1 g/dL (3.5-5.7); Albumin/Globulin Ratio 1.6 (1.1-2.2); Alkaline Phosphatase 56 Units/L (34-104); Aspartate Amino Transferase 20 Units/L (13-39); BUN/Creatinine Ratio 38 (6-26); Bilirubin,Total 0.3 mg/dL (0.3-1.0); Blood Urea Nitrogen 25 mg/dL (8-23); Calcium 9.6 mg/dL (8.6-10.3); Carbon Dioxide 34 mEq/L (23-29); Chloride 96 mEq/L (98-107); Chol/HDL Ratio 2.6 (0-4.9); Cholesterol 164 mg/dL (< 200); Globulin 2.5 g/dL (2.4-3.5); Glucose 125 mg/dL (70-105); HDL Cholesterol 63 mg/dL (40-59); LDL Cholesterol,Calculated 93 mg/dL (0-99); Osmolality,Calculated 292 (280-300); Potassium 4.9 mEq/L (3.5-5.1); Sodium 138 mEq/L (136-145); Total Protein 6.6 g/dL (6.4-8.9); Triglycerides 41 mg/dL (< 150); eGFR For African Americans > 60 (> 60); eGFR For Non-African Americans > 60 (> 60)
[2017-09-23] MEDS: Metoprolol XL (24 HR) Succ 50 MG TAB.ER.24H PO SCH (08:10)
[2017-09-23] MEDS: Aspirin Enteric Coated 81 MG Tablet PO SCH (08:11)
[2017-09-23] MEDS: Furosemide 40 MG/4 ML VIAL IVP SCH ×2 (08:11→18:52)
[2017-09-23] MEDS ORDERED: Isovue-370 500 ML INFUS..BTL IV ONE (12:24)
--- NOTE | 2017-09-23 15:55 | Internal Med Progress Note ---
Date of Encounter: 09/23/17 Time of Encounter: 15:55 - Assessment and plan (1) Acute and chronic respiratory failure with hypoxia Current Visit: Yes Status: Acute Assessment and plan: presented with acute SOB with hypoxia. Chest CTA negative for pulmonary embolism, no pneumonia. Suspect multifactorial with CHF and COPD exacerbation. Continue treating underlying causes. BiPAP per home schedule. (2) Acute on chronic systolic (congestive) heart failure Current Visit: Yes Status: Acute Assessment and plan: presented with acute SOB. 07/2017 TTE with EF 35-40%. CXR with evidence of pulmonary vascular congestion. BNP 577. New IV diuresis, fluid restriction. (3) A-fib Current Visit: Yes Status: Chronic Assessment and plan: per hx. Rate controlled. Cont home BB, coumadin Qualifiers: Atrial fibrillation type: paroxysmal Qualified Code(s): I48.0 - Paroxysmal atrial fibrillation (4) DVT prophylaxis Current Visit: No Status: Acute Assessment and plan: 1. Continue Coumadin. 2. Monitor PT/INR. - Time Spent With Patient Total time spent is greater than 50% in coordination of care (as documented) at patient's floor/unit and/or counseling patient: - Subjective Interval history: Seen and examined at bedside. Patient is new to me. Information obtained from chart review and patient report. Still has some shortness of breath but overall improved. - Constitutional Vitals: Temp Pulse Resp BP Pulse Ox 98.0 F 93 17 127/67 95 09/23/17 15:35 09/23/17 15:35 09/23/17 15:35 09/23/17 15:35 09/23/17 15:35 General appearance: Present: cooperative, mild distress, A&O X 3, pleasant, answers questions appropriately - Head Head exam: Present: atraumatic, normocephalic - Eye Eye exam: Present: PERRL, conjuntiva pink, sclera anicteric Pupils: Present: PERRL - Neck Neck exam general surgery: Present: supple, trachea midline. Absent: lymphadenopathy - Respiratory Respiratory exam: Present: CTAB, rales, rhonchi. Absent: accessory muscle use, wheezes - Cardiovascular Cardiovascular exam: Present: RRR, +S1, +S2. Absent: diastolic murmur, gallop, rubs, systolic murmur - GI/Abdominal GI/Abdominal exam: Present: normal bowel sounds, soft, no peritoneal signs. Absent: distended, tenderness - Extremities Exam Extremities exam: Present: warm, radial pulses palpable and symmetrical. Absent : calf tenderness, cyanotic, pedal edema - Neurological Exam Neurological exam: Present: CN II-XII intact, oriented X3, no focal deficits. Absent: pronater drift, facial droop, speech deficit - Skin Skin exam: Present: dry, intact Internal Medicine: Result - Labs CBC & Chem 7: 09/23/17 05:48 09/23/17 05:48 - ABG Interpretation ABG results: PT/INR, D-dimer PT 31.9 Seconds (9.4-12.1) H 09/23/17 05:48 - Impressions Impressions Chest CTA 09/23/17 12:24 IMPRESSION: 1. No pulmonary embolism. No acute abnormality in the chest. 2. A 5 mm subpleural left lower lobe nodule, with moderate emphysema. Consider a follow-up chest CT in one year to document stability, as outlined below. RECOMMENDATIONS: Fleischner Society guidelines for follow-up and management of incidentally detected pulmonary nodules: Single Solid Nodule: Nodule size less than 6 mm In a low-risk patient, no routine follow-up. In a high-risk patient, optional CT at 12 months. - Low risk patients include individuals with minimal or absent history of smoking and other known risk factors. - High risk patients include individuals with a history or smoking or known risk factors. Radiology 2017 http://pubs.rsna.org/doi/full/10.1148/radiol.[email or web address] D/ / 09/23/2017 14:25:41 Jesus Georges MD / paige Interpreting Provider: Jesus Georges MD - VTE Reasons for not Prescribing Prophylaxis: Not indicated-Anticoagulated or INR therapeutic Consult Discharge Plan - Plan Referrals: NONE,PCP [Primary Care Provider] -
[2017-09-23] MEDS: predniSONE 20 MG TABLET PO SCH (16:16)
[2017-09-23] MEDS ORDERED: Warfarin perPT PO PRN (18:00)
[2017-09-23] MEDS ORDERED: *HR* Warfarin 1 MG TABLET PO ONE (18:01)
--- NOTE | 2017-09-23 19:33 | Electrocardiograph Report ---
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
[2017-09-23] MEDS: Levofloxacin 500 MG/100 ML 500 MG/100 ML BAG IVPB SCH (20:53)
[2017-09-24] MEDS: Ipratropium/Albuterol Neb 3 ML IH SCH ×3 (03:32→15:33)
[2017-09-24 07:22] LABS: INR 3.5; Prothrombin Time 38.5 Seconds (9.4-12.1)
[2017-09-24] MEDS: predniSONE 20 MG TABLET PO SCH (09:31)
[2017-09-24] MEDS: Aspirin Enteric Coated 81 MG Tablet PO SCH (09:31)
[2017-09-24] MEDS: Metoprolol XL (24 HR) Succ 50 MG TAB.ER.24H PO SCH (09:31)
[2017-09-24] MEDS: Furosemide 40 MG/4 ML VIAL IVP SCH (09:31)
--- NOTE | 2017-09-24 10:06 | Discharge Summary ---
Date of Encounter: 09/24/17 Time of Encounter: 10:03 - Discharge Diagnosis (1) Acute and chronic respiratory failure with hypoxia Priority: Primary Status: Acute Assessment and Plan: presented with acute SOB with hypoxia. Chest CTA negative for pulmonary embolism, no pneumonia. Suspect multifactorial with CHF and COPD exacerbation. Symptoms improved with treating underlying causes. Adequately oxygenating on home dose of O2 (2) Acute on chronic systolic (congestive) heart failure Priority: Primary Status: Acute Assessment and Plan: presented with acute SOB. 07/2017 TTE with EF 35-40%. CXR with evidence of pulmonary vascular congestion. BNP 577. Sx's improved with IV lasix, fluid restriction (negative 3 liters). Appeared euvolemic at discharge. Cont home Lasix, ASA, BRINDA, BB. (3) Acute exacerbation of chronic obstructive airways disease Priority: Primary Status: Acute Assessment and Plan: Presented with worsening shortness of breath. Suspect COPD exacerbation with SOB, wheezing and cough. Symptoms improved with IV ATB and steroids. Discharge home on Levaquin and steroid burst. (4) A-fib Priority: Secondary Status: Chronic Assessment and Plan: per hx. Rate controlled. Cont home BB, coumadin Qualifiers: Atrial fibrillation type: paroxysmal Qualified Code(s): I48.0 - Paroxysmal atrial fibrillation Hospital course: Please see assessment and plan for Hospital course Discharge discussed with: patient (Seen and examined at bedside. Says she feels better. Still having some shortness of breath but back to baseline. No chest pain. Wants ) - Time Spent with Patient Total time spent providing and/or coordinating discharge services: - Discharge Medications Prescriptions: Levofloxacin [Levaquin] 500 mg PO DAILY #3 tablet Home Medications: Albuterol Sulfate [Ventolin Hfa] 2 puff IH Q4H PRN 08/09/17 [History] Aspirin [Lo-Dose Aspirin EC] 81 mg PO DAILY 08/09/17 [History] Sertraline [Zoloft] 25 mg PO DAILY 08/09/17 [History] Tiotropium [Spiriva] 18 mcg IH DAILYR inh 08/18/17 [Rx] Atorvastatin Calcium [Lipitor] 20 mg PO HS 08/27/17 [History] Potassium Chloride [Klor-Con 10] 10 meq PO DAILY 08/27/17 [History] Warfarin [Coumadin] 2 mg PO DAILY 08/27/17 [History] Furosemide [Lasix] 20 mg PO BID #0 tablet 08/31/17 [Rx] Ipratropium/Albuterol Neb [Duoneb] 3 ml IH Q6HR PRN #0 08/31/17 [Rx] Metoprolol XL (24 HR) Succ [Toprol Xl] 75 mg PO DAILY tab.er.24h 08/31/17 [Rx] Lisinopril [Zestril] 10 mg PO DAILY #30 tablet 09/17/17 [Rx] Levofloxacin [Levaquin] 500 mg PO DAILY #3 tablet 09/24/17 [Rx] predniSONE [PredniSONE] 40 mg PO DAILY tablet 09/24/17 [Rx] Allergies/Adverse Reactions: 3 Allergy/AdvReac Type Severity Reaction Status Date / Time codeine Allergy Vomiting Verified 09/22/17 20:18 Date of admission: 09/23/17 12:22 Primary care physician: PCP NONE Discharging clinician: Hue Chambers Anticipated date of discharge: 09/24/17 - Constitutional Vitals: Temp Pulse Resp BP Pulse Ox 97.8 F 81 16 144/80 90 09/24/17 06:37 09/24/17 06:37 09/24/17 06:37 09/24/17 06:37 09/24/17 07:49 General appearance: Present: cooperative, A&O X 3, pleasant, answers questions appropriately - Head Head exam: Present: atraumatic, normocephalic - Eye Eye exam: Present: PERRL, conjuntiva pink, sclera anicteric Pupils: Present: PERRL - Neck Neck exam general surgery: Present: supple, trachea midline. Absent: lymphadenopathy - Respiratory Respiratory exam: Present: CTAB, rhonchi (Scant rhonchi right lower lobe posteriorly). Absent: accessory muscle use, rales, wheezes - Cardiovascular Cardiovascular exam: Present: RRR, +S1, +S2. Absent: diastolic murmur, gallop, rubs, systolic murmur - GI/Abdominal GI/Abdominal exam: Present: normal bowel sounds, soft, no peritoneal signs. Absent: distended, tenderness - Extremities Exam Extremities exam: Present: warm, radial pulses palpable and symmetrical. Absent : calf tenderness, cyanotic, pedal edema - Neurological Exam Neurological exam: Present: CN II-XII intact, oriented X3, no focal deficits. Absent: pronater drift, facial droop, speech deficit - Skin Skin exam: Present: dry, intact - Patient Status Disposition: Transfer SNF Condition: Fair Functional capacity at discharge: uses cane/walker Overall status at discharge: patient is progressing back to baseline - Discharge Instructions Follow Up With: NONE,PCP [Primary Care Provider] - Forms: ED Satisfaction Letter - Diet and Activity Activity: as per physical therapy, increase activity as tolerated Diet: low fat, low cholesterol, low salt diet - VTE Reasons for not Prescribing Prophylaxis: Not indicated-Anticoagulated or INR therapeutic
--- NOTE | 2017-09-24 10:22 | Physician Discharge Referral ---
ExtendedCare Referral Info Transfer To: [facility] Provider in Charge: Hue Chambers CNP Provider in Charge after Transfer: PCP Institutional Level of Care: Skilled - Diagnosis (1) Acute and chronic respiratory failure with hypoxia Status: Acute (2) Acute on chronic systolic (congestive) heart failure Status: Acute (3) Acute exacerbation of chronic obstructive airways disease Status: Acute (4) A-fib Status: Chronic - Transfer Medications Prescriptions: Levofloxacin [Levaquin] 500 mg PO DAILY #3 tablet Home Medications: Albuterol Sulfate [Ventolin Hfa] 2 puff IH Q4H PRN 08/09/17 [History] Aspirin [Lo-Dose Aspirin EC] 81 mg PO DAILY 08/09/17 [History] Sertraline [Zoloft] 25 mg PO DAILY 08/09/17 [History] Tiotropium [Spiriva] 18 mcg IH DAILYR inh 08/18/17 [Rx] Atorvastatin Calcium [Lipitor] 20 mg PO HS 08/27/17 [History] Potassium Chloride [Klor-Con 10] 10 meq PO DAILY 08/27/17 [History] Warfarin [Coumadin] 2 mg PO DAILY 08/27/17 [History] Furosemide [Lasix] 20 mg PO BID #0 tablet 08/31/17 [Rx] Ipratropium/Albuterol Neb [Duoneb] 3 ml IH Q6HR PRN #0 08/31/17 [Rx] Metoprolol XL (24 HR) Succ [Toprol Xl] 75 mg PO DAILY tab.er.24h 08/31/17 [Rx] Lisinopril [Zestril] 10 mg PO DAILY #30 tablet 09/17/17 [Rx] Levofloxacin [Levaquin] 500 mg PO DAILY #3 tablet 09/24/17 [Rx] predniSONE [PredniSONE] 40 mg PO DAILY tablet 09/24/17 [Rx] Allergies/Adverse Reactions: 3 Allergy/AdvReac Type Severity Reaction Status Date / Time codeine Allergy Vomiting Verified 09/22/17 20:18 - Respiratory Orders Oxygen / L per min (3 liters) Smoking Cessation: Smoking cessation has been advised. For more information, call the [place] Tobacco Quit Line at 3-732-LTMJ-NOW. - Advance Directives Code Status: Full Code - Mobility Orders Ambulate - Rehabiliation Orders Rehab Orders: Evaluation for Physical Therapy, Evaluation for Occupational Therapy - Diet Orders No Added Salt (JESSICA) CERTIFICATION: I certify that the transfer of the above named patient to an Extended Care Facility is necessary for the continuing treatment of the diagnosis listed. The above information is true and accurate reflection of patient's current condition. Confidential - Redisclosure prohibited without a patient's written consent.
[2017-09-24 15:41] VITALS: BP 127/64
== END 2017-09-24 15:54 | DRG 291 ==
LOC: EMEROO 17:51 → 3BNU 17:51
PROVIDERS: ADMIT Internal Medicine; ATTEND Internal Medicine

== ENCOUNTER 2019-07-21 12:48 | Inpatient (IN) ==
[2019-07-21 13:33] LABS: Hematocrit 33.3 % (35.3-44.9); Hemoglobin 10.6 g/dL (11.5-15.4); Mean Corpuscular HGB Conc 31.8 g/dL (31.6-35.5); Mean Corpuscular Hemoglobin 31.6 pg (28.0-33.3); Mean Corpuscular Volume 99.4 fL (83.0-100.0); Mean Platelet Volume 10.6 fL (9.4-12.4); Platelet Count 246 K/mcL (140-400); Red Blood Count 3.35 M/mcL (3.82-4.97); Red Cell Distribution Width 13.9 % (11.5-14.5); White Blood Count 25.1 K/mcL (4.3-11.1)
[2019-07-21 13:48] LABS: INR 5.9; Prothrombin Time 66.8 Seconds (9.4-12.1)
[2019-07-21 13:53] LABS: BUN/Creatinine Ratio 41 (6-26); Blood Urea Nitrogen 34 mg/dL (8-23); Calcium 8.9 mg/dL (8.6-10.3); Carbon Dioxide 37 mEq/L (23-29); Chloride 93 mEq/L (98-107); Creatine Kinase 62 Units/L (30-223); Glucose 219 mg/dL (70-105); Osmolality,Calculated 292 (280-300); Potassium 5.1 mEq/L (3.5-5.1); Sodium 134 mEq/L (136-145); eGFR For African Americans > 60 (> 60); eGFR For Non-African Americans > 60 (> 60)
[2019-07-21 14:13] LABS: Monocytes # 1.5 K/mcL (0.0-1.3); Neutrophils # 21.6 K/mcL (1.6-8.9)
[2019-07-21 14:14] LABS: Platelet Estimate Normal (Normal)
[2019-07-21] MEDS ORDERED: Acetaminophen 325 MG TABLET PO PRN (14:42)
[2019-07-21] MEDS ORDERED: Naloxone 0.4 MG/ML INJ IVP PRN (14:42)
[2019-07-21] MEDS ORDERED: Ondansetron 4 MG/2 ML VIAL IVP PRN (14:42)
[2019-07-21] MEDS ORDERED: 0.9 % Sodium Chloride 250 ML IVC SCH (15:00)
[2019-07-21 15:06] LABS: Bilirubin,Urine Negative (Negative); Blood,Urine Negative (Negative); Clarity,Urine Clear (Clear); Color,Urine Yellow (Yellow); Glucose,Urine (UA) Normal (Normal); Ketones,Urine Negative (Negative); Leukocyte Esterase,Urine Negative (Negative); Nitrite,Urine Negative (Negative); PH,Urine 6.5 pH Units (5.0-8.0); Protein,Urine Trace mg/dL (Neg-Trace); Urobilinogen,Urine Normal (Normal)
[2019-07-21] MEDS ORDERED: Ipratropium/Albuterol Neb 3 ML IH PRN (16:51)
[2019-07-21] MEDS ORDERED: 0.9 % Sodium Chloride 1,000 ML IV ONE (18:53)
[2019-07-21 19:22] LABS: Basophils % 0.2 %; Eosinophils % 0.1 %; Hematocrit 29.8 % (35.3-44.9); Hemoglobin 9.7 g/dL (11.5-15.4); Lymphocytes # 1.1 K/mcL (0.6-4.6); Lymphocytes % 6.3 %; Mean Corpuscular HGB Conc 32.6 g/dL (31.6-35.5); Mean Corpuscular Hemoglobin 32.2 pg (28.0-33.3); Mean Platelet Volume 10.4 fL (9.4-12.4); Monocytes # 1.3 K/mcL (0.0-1.3); Monocytes % 7.2 %; Neutrophils # 15.5 K/mcL (1.6-8.9); Platelet Count 223 K/mcL (140-400); Red Blood Count 3.01 M/mcL (3.82-4.97); Segmented Neutrophils % 85.2 %; White Blood Count 18.2 K/mcL (4.3-11.1)
[2019-07-21 19:32] LABS: D-Dimer 5817 ng/mLFEU (0-500)
[2019-07-21 19:41] LABS: Albumin 3.4 g/dL (3.5-5.7); Bilirubin,Direct 0.1 mg/dL (0.0-0.2); Bilirubin,Indirect 0.4 mg/dL (0.0-1.0); Bilirubin,Total 0.5 mg/dL (0.3-1.0); Globulin 1.7 g/dL (2.4-3.5); Total Protein 5.1 g/dL (6.4-8.9)
[2019-07-21 19:42] LABS: Fibrinogen 241 mg/dL (169-393)
[2019-07-21] MEDS ORDERED: NON-FORMULARY MEDICATION 1 EACH EACH (Potassium Chloride [Klor-Con 10] 10 MEQ) PO SCH (21:00)
[2019-07-21] MEDS ORDERED: ALPRAZolam 0.25 MG TABLET PO SCH (21:00)
[2019-07-21] MEDS ORDERED: dexAMETHasone 4 MG TABLET PO SCH (21:00)
[2019-07-22 00:55] LABS: Basophils % 0.1 %; Eosinophils % 0.1 %; Hematocrit 25.6 % (35.3-44.9); Lymphocytes # 1.5 K/mcL (0.6-4.6); Lymphocytes % 10.9 %; Mean Corpuscular HGB Conc 31.3 g/dL (31.6-35.5); Mean Corpuscular Hemoglobin 31.6 pg (28.0-33.3); Mean Corpuscular Volume 101.2 fL (83.0-100.0); Mean Platelet Volume 10.7 fL (9.4-12.4); Monocytes % 7.8 %; Neutrophils # 10.7 K/mcL (1.6-8.9); Platelet Count 176 K/mcL (140-400); Red Blood Count 2.53 M/mcL (3.82-4.97); Red Cell Distribution Width 14.2 % (11.5-14.5); Segmented Neutrophils % 80.1 %; White Blood Count 13.3 K/mcL (4.3-11.1)
[2019-07-22 01:06] LABS: INR 1.3; Prothrombin Time 15.3 Seconds (9.4-12.1)
[2019-07-22 01:16] LABS: Calcium 8.2 mg/dL (8.6-10.3); Magnesium 2.1 mg/dL (1.6-2.6); Potassium 5.4 mEq/L (3.5-5.1)
[2019-07-22 01:39] LABS: Folate 12.5 ng/mL (3.0-16.0)
[2019-07-22 01:52] LABS: INR 1.3; Prothrombin Time 14.7 Seconds (9.4-12.1)
[2019-07-22] MEDS ORDERED: *HR* LORazepam 2 MG/ML VIAL IVP ONE (02:33)
[2019-07-22] MEDS: Ringers Solution, Lactated 1,000 ML IVC SCH ×3 (07:23→21:26)
[2019-07-22 08:01] LABS: Basophils % 0.1 %; Eosinophils % 0.1 %; Hematocrit 27.1 % (35.3-44.9); Hemoglobin 8.1 g/dL (11.5-15.4); Immature Granulocytes % 0.7 % (0-4); Lymphocytes # 1.4 K/mcL (0.6-4.6); Lymphocytes % 9.4 %; Mean Corpuscular HGB Conc 29.9 g/dL (31.6-35.5); Mean Corpuscular Hemoglobin 30.7 pg (28.0-33.3); Mean Corpuscular Volume 102.7 fL (83.0-100.0); Mean Platelet Volume 10.2 fL (9.4-12.4); Monocytes # 1.2 K/mcL (0.0-1.3); Monocytes % 8.2 %; Neutrophils # 11.9 K/mcL (1.6-8.9); Platelet Count 199 K/mcL (140-400); Red Blood Count 2.64 M/mcL (3.82-4.97); Red Cell Distribution Width 13.9 % (11.5-14.5); Segmented Neutrophils % 81.5 %; White Blood Count 14.6 K/mcL (4.3-11.1)
[2019-07-22 08:20] LABS: Calcium 8.4 mg/dL (8.6-10.3); Potassium 5.9 mEq/L (3.5-5.1)
[2019-07-22] MEDS ORDERED: lisinopriL 10 MG TABLET PO SCH (09:00)
[2019-07-22] MEDS ORDERED: Furosemide 20 MG TABLET PO SCH (09:00)
[2019-07-22] MEDS ORDERED: Metoprolol XL (24 HR) Succ 50 MG TAB.ER.24H PO SCH (09:00)
[2019-07-22] MEDS: Hydrocortisone Sodium Succ 100 MG/2 ML VIAL IVP SCH ×3 (09:23→23:28)
[2019-07-22] MEDS: Aspirin Enteric Coated 81 MG Tablet PO SCH (09:25)
[2019-07-22] MEDS ORDERED: 0.9 % Sodium Chloride 250 ML IVC SCH (13:45)
[2019-07-22] MEDS ORDERED: 0.9 % Sodium Chloride 250 ML ONE (14:28)
[2019-07-22] MEDS ORDERED: Lidocaine -MPF 2% 2 ML VIAL ONE (15:59)
[2019-07-22] MEDS ORDERED: *HR* FentaNYL (PF) 100 MCG/2 ML VIAL ONE (15:59)
[2019-07-22] MEDS ORDERED: Ondansetron 4 MG/2 ML VIAL ONE (15:59)
[2019-07-22] MEDS ORDERED: *HR* Propofol 200 MG/20 ML VIAL IVP ONE (15:59)
[2019-07-22] MEDS ORDERED: *HR* Succinylcholine 200 MG/10 ML VIAL IVP ONE (15:59)
[2019-07-22] MEDS ORDERED: Vancomycin 1 EACH in 0.9 % Sodium Chloride 250 ML IVPB SCH (16:00)
[2019-07-22] MEDS ORDERED: Insulin Regular, Human 100 UNIT/ML SQ ONE ×3 (18:22→22:30)
[2019-07-22] MEDS ORDERED: Calcium Gluconate 1,000 MG/10 ML VIAL IVP ONE (18:26)
[2019-07-22] MEDS: Piperacillin/Tazobactam 3.375 GM in 0.9 % Sodium Chloride Mini Bag 100 ML IVPB SCH ×2 (18:56→23:28)
[2019-07-22] MEDS: D5% in 0.9% NACL 1,000 ML IVC SCH (18:56)
[2019-07-22] MEDS ORDERED: *HR* Dextrose 50 % in Water (Syg) 50 ML SYRINGE IVP ONE (20:34)
[2019-07-22] MEDS ORDERED: Insulin Human Regular 10 UNIT in 0.9 % Sodium Chloride 10 ML IV ONE (21:00)
[2019-07-22 21:28] LABS: Potassium 5.4 mEq/L (3.5-5.1)
[2019-07-22 21:35] LABS: BUN/Creatinine Ratio 44 (6-26); Blood Urea Nitrogen 43 mg/dL (8-23); Calcium 8.2 mg/dL (8.6-10.3); Carbon Dioxide 31 mEq/L (23-29); Chloride 100 mEq/L (98-107); Glucose 172 mg/dL (70-105); Osmolality,Calculated 293 (280-300); Sodium 134 mEq/L (136-145); eGFR For African Americans > 60 (> 60); eGFR For Non-African Americans 55 (> 60)
[2019-07-22] MEDS ORDERED: Insulin LISPRO 300 UNITS/3 ML VIAL SQ ONE (22:30)
[2019-07-23] MEDS: D5% in 0.9% NACL 1,000 ML IVC SCH ×2 (03:32→15:55)
[2019-07-23] MEDS: Ringers Solution, Lactated 1,000 ML IVC SCH ×2 (05:14→15:54)
[2019-07-23 05:23] LABS: Basophils % 0.2 %; Eosinophils % 0.1 %; Hematocrit 28.3 % (35.3-44.9); Hemoglobin 8.7 g/dL (11.5-15.4); Immature Granulocytes % 1.1 % (0-4); Lymphocytes # 0.7 K/mcL (0.6-4.6); Lymphocytes % 4.6 %; Mean Corpuscular HGB Conc 30.7 g/dL (31.6-35.5); Mean Corpuscular Hemoglobin 31.9 pg (28.0-33.3); Mean Corpuscular Volume 103.7 fL (83.0-100.0); Mean Platelet Volume 10.9 fL (9.4-12.4); Monocytes # 0.9 K/mcL (0.0-1.3); Monocytes % 6.5 %; Neutrophils # 12.3 K/mcL (1.6-8.9); Platelet Count 149 K/mcL (140-400); Red Blood Count 2.73 M/mcL (3.82-4.97); Red Cell Distribution Width 14.5 % (11.5-14.5); Segmented Neutrophils % 87.5 %; White Blood Count 14.1 K/mcL (4.3-11.1)
[2019-07-23 05:32] LABS: BUN/Creatinine Ratio 43 (6-26); Blood Urea Nitrogen 40 mg/dL (8-23); Calcium 8.6 mg/dL (8.6-10.3); Carbon Dioxide 33 mEq/L (23-29); Chloride 102 mEq/L (98-107); Glucose 142 mg/dL (70-105); Magnesium 2.2 mg/dL (1.6-2.6); Osmolality,Calculated 298 (280-300); Potassium 5.2 mEq/L (3.5-5.1); Sodium 138 mEq/L (136-145); eGFR For African Americans > 60 (> 60); eGFR For Non-African Americans 59 (> 60)
[2019-07-23] MEDS: Piperacillin/Tazobactam 3.375 GM in 0.9 % Sodium Chloride Mini Bag 100 ML IVPB SCH ×2 (07:56→16:48)
[2019-07-23] MEDS: Hydrocortisone Sodium Succ 100 MG/2 ML VIAL IVP SCH ×2 (07:57→16:49)
[2019-07-23] MEDS: Aspirin Enteric Coated 81 MG Tablet PO SCH (08:51)
[2019-07-23] MEDS ORDERED: Cyanocobalamin (B-12) 1,000 MCG TABLET PO SCH (09:00)
[2019-07-23] MEDS ORDERED: lisinopriL 10 MG TABLET PO SCH (09:00)
[2019-07-23] MEDS ORDERED: Metoprolol XL (24 HR) Succ 25 MG TAB.ER.24H PO SCH (09:00)
[2019-07-23] MEDS ORDERED: Cholecalciferol (D-3) 1,000 UNIT (25MCG) TABLET PO SCH (09:00)
[2019-07-23] MEDS: *HR* HYDROmorphone (PF) 1 MG/ML SYRINGE IVP PRN ×2 (11:04→17:45)
[2019-07-23] MEDS ORDERED: Ipratropium Neb 0.5 MG NEBULIZER IH PRN (11:24)
[2019-07-23] MEDS: Levalbuterol Neb 0.63 MG/3 ML IH SCH ×3 (12:05→21:04)
[2019-07-23 12:17] LABS: INR 1.1; Prothrombin Time 12.2 Seconds (9.4-12.1)
[2019-07-23 12:21] LABS: ABG Base Excess 8 mEq/L (-2 to 3); ABG HCO3 39 mEq/L (21-27); ABG Oxygen Saturation 73 % (95-98); ABG PCO2 105 mmHg (35-45); ABG PH 7.17 pH Units (7.32-7.45); ABG PO2 51 mmHg (85-104); ABG TCO2 42 mEq/L (20-26)
[2019-07-23] MEDS ORDERED: Furosemide 40 MG/4 ML VIAL IVP ONE (12:21)
[2019-07-23 14:40] LABS: Adenovirus Not Detected (Not Detect); Coronavirus 229E Not Detected (Not Detect); Coronavirus HKU1 Not Detected (Not Detect); Coronavirus NL63 Not Detected (Not Detect); Coronavirus OC43 Not Detected (Not Detect); Human Metapneumovirus Not Detected (Not Detect); Human Rhinovirus/Enterovirus Not Detected (Not Detect); Influenza A Subtype 2009 H1 Not Detected (Not Detect)
[2019-07-23 14:41] LABS: Bordetella Pertussis Not Detected (Not Detect); Chlamydophila pneumoniae Not Detected (Not Detect); Influenza B Not Detected (Not Detect); Mycoplasma pneumoniae Not Detected (Not Detect); Parainfluenza Virus 1 Not Detected (Not Detect); Parainfluenza Virus 2 Not Detected (Not Detect); Parainfluenza Virus 3 Not Detected (Not Detect); Parainfluenza Virus 4 Not Detected (Not Detect); Respiratory Syncytial Virus Not Detected (Not Detect)
[2019-07-23 15:52] LABS: Bilirubin,Urine Negative (Negative); Blood,Urine Trace (Negative); Clarity,Urine Clear (Clear); Color,Urine Yellow (Yellow); Glucose,Urine (UA) Normal (Normal); Ketones,Urine Negative (Negative); Leukocyte Esterase,Urine Negative (Negative); Nitrite,Urine Negative (Negative); Protein,Urine Negative (Neg-Trace); Specific Gravity,Urine 1.011 (1.010-1.025); Urobilinogen,Urine Normal (Normal)
[2019-07-23 15:54] LABS: Bacteria,Urine None Seen per hpf (None-Few); Hyaline Casts,Urine None Seen per lpf (None-Few); Squamous Epithelial Cell,Urine None Seen per lpf (None-Few); WBC,Urine 0-3 per hpf (0-3)
[2019-07-23 20:03] LABS: ABG Base Excess 14 mEq/L (-2 to 3); ABG HCO3 42 mEq/L (21-27); ABG Oxygen Saturation 97 % (95-98); ABG PCO2 82 mmHg (35-45); ABG PH 7.32 pH Units (7.32-7.45); ABG PO2 101 mmHg (85-104); ABG TCO2 45 mEq/L (20-26); Blood Gas Modality AVAPS; Blood Gas VT 400 cc
[2019-07-24] MEDS: Hydrocortisone Sodium Succ 100 MG/2 ML VIAL IVP SCH ×3 (00:07→23:57)
[2019-07-24] MEDS: Piperacillin/Tazobactam 3.375 GM in 0.9 % Sodium Chloride Mini Bag 100 ML IVPB SCH ×3 (00:07→23:58)
[2019-07-24] MEDS ORDERED: 0.9 % Sodium Chloride 250 ML IVC SCH ×2 (02:04)
[2019-07-24] MEDS ORDERED: Ringers Solution, Lactated 1,000 ML IVC SCH (02:04)
[2019-07-24] MEDS ORDERED: Acetaminophen 325 MG TABLET PO PRN (02:04)
[2019-07-24] MEDS ORDERED: Ipratropium Neb 0.5 MG NEBULIZER IH PRN ×2 (02:04→13:15)
[2019-07-24] MEDS ORDERED: Vancomycin 1 EACH in 0.9 % Sodium Chloride 250 ML IVPB SCH (02:04)
[2019-07-24] MEDS ORDERED: *HR* HYDROmorphone (PF) 1 MG/ML SYRINGE IVP PRN (02:04)
[2019-07-24] MEDS ORDERED: Naloxone 0.4 MG/ML INJ IVP PRN (02:04)
[2019-07-24] MEDS ORDERED: D5% in 0.9% NACL 1,000 ML IVC SCH (02:04)
[2019-07-24] MEDS ORDERED: Ondansetron 4 MG/2 ML VIAL IVP PRN (02:04)
[2019-07-24] MEDS: Levalbuterol Neb 0.63 MG/3 ML IH SCH ×3 (03:49→15:29)
[2019-07-24 06:02] LABS: Basophils % 0.1 %; Hematocrit 26.4 % (35.3-44.9); Immature Granulocytes % 0.7 % (0-4); Lymphocytes # 0.5 K/mcL (0.6-4.6); Lymphocytes % 5.4 %; Mean Corpuscular HGB Conc 30.3 g/dL (31.6-35.5); Mean Corpuscular Hemoglobin 31.3 pg (28.0-33.3); Mean Corpuscular Volume 103.1 fL (83.0-100.0); Mean Platelet Volume 10.6 fL (9.4-12.4); Monocytes # 0.5 K/mcL (0.0-1.3); Monocytes % 5.2 %; Neutrophils # 8.3 K/mcL (1.6-8.9); Platelet Count 162 K/mcL (140-400); Red Blood Count 2.56 M/mcL (3.82-4.97); Red Cell Distribution Width 14.2 % (11.5-14.5); Segmented Neutrophils % 88.6 %; White Blood Count 9.4 K/mcL (4.3-11.1)
[2019-07-24 06:25] LABS: ABG Base Excess 17 mEq/L (-2 to 3); ABG HCO3 44 mEq/L (21-27); ABG Oxygen Saturation 97 % (95-98); ABG PCO2 70 mmHg (35-45); ABG PO2 99 mmHg (85-104); ABG TCO2 46 mEq/L (20-26); Blood Gas Modality AVAPS; Blood Gas VT 400 cc
[2019-07-24 06:27] LABS: BUN/Creatinine Ratio 45 (6-26); Blood Urea Nitrogen 31 mg/dL (8-23); Calcium 8.5 mg/dL (8.6-10.3); Carbon Dioxide 43 mEq/L (23-29); Chloride 98 mEq/L (98-107); Glucose 117 mg/dL (70-105); Magnesium 1.9 mg/dL (1.6-2.6); Osmolality,Calculated 306 (280-300); Phosphorous 2.9 mg/dL (2.7-4.5); Potassium 3.5 mEq/L (3.5-5.1); Sodium 144 mEq/L (136-145); eGFR For African Americans > 60 (> 60); eGFR For Non-African Americans > 60 (> 60)
[2019-07-24] MEDS ORDERED: Metoprolol XL (24 HR) Succ 25 MG TAB.ER.24H PO ONE (06:43)
[2019-07-24] MEDS ORDERED: *HR* Rocuronium Bromide 50 MG/5 ML VIAL ONE (07:23)
[2019-07-24] MEDS ORDERED: *HR* Succinylcholine 200 MG/10 ML VIAL IVP ONE (07:23)
[2019-07-24] MEDS ORDERED: Dexamethasone 4 MG/ML VIAL ONE (07:23)
[2019-07-24] MEDS ORDERED: Ondansetron 4 MG/2 ML VIAL ONE (07:23)
[2019-07-24] MEDS ORDERED: Lidocaine -MPF 2% 2 ML VIAL ONE (07:23)
[2019-07-24] MEDS ORDERED: *HR* Propofol 200 MG/20 ML VIAL IVP ONE (07:28)
[2019-07-24] MEDS ORDERED: *HR* FentaNYL (PF) 100 MCG/2 ML VIAL ONE (07:28)
[2019-07-24] MEDS ORDERED: Acetaminophen IV 1,000 MG/100 ML INFUS..BTL ONE (07:39)
[2019-07-24] MEDS ORDERED: Famotidine 20 MG/2 ML VIAL ONE (07:39)
[2019-07-24] MEDS ORDERED: Piperacillin/Tazobactam 3.375 GM in 0.9 % Sodium Chloride Mini Bag 100 ML IVPB SCH (08:00)
[2019-07-24] MEDS ORDERED: Hydrocortisone Sodium Succ 100 MG/2 ML VIAL IVP SCH (08:00)
[2019-07-24] MEDS ORDERED: *HR* PHENYLEPHRINE 1,000 MCG/10 ML SYRINGE IVP ONE (08:10)
[2019-07-24] MEDS ORDERED: EPHEDrine 50 MG/ML VIAL ONE (08:12)
[2019-07-24] MEDS ORDERED: *HR* Vasopressin 20 UNIT/ML VIAL ONE (08:13)
[2019-07-24] MEDS ORDERED: CeFAZolin Syr 2,000MG/20 ML 2,000 MG/20 ML SYRINGE IVPB ONE (08:17)
[2019-07-24] MEDS ORDERED: Ondansetron 4 MG/2 ML VIAL IVP ONE (08:59)
[2019-07-24] MEDS ORDERED: *HR* OxyCODONE Immed Rel 5 MG TABLET PO PRN (08:59)
[2019-07-24] MEDS ORDERED: dexAMETHasone 4 MG TABLET PO SCH ×2 (09:00→21:00)
[2019-07-24] MEDS ORDERED: Cyanocobalamin (B-12) 1,000 MCG TABLET PO SCH (09:00)
[2019-07-24] MEDS ORDERED: Metoprolol XL (24 HR) Succ 25 MG TAB.ER.24H PO SCH (09:00)
[2019-07-24] MEDS ORDERED: ALPRAZolam 0.25 MG TABLET PO SCH (09:00)
[2019-07-24] MEDS ORDERED: Cholecalciferol (D-3) 1,000 UNIT (25MCG) TABLET PO SCH (09:00)
[2019-07-24] MEDS ORDERED: Aspirin Enteric Coated 81 MG Tablet PO SCH (09:00)
[2019-07-24] MEDS ORDERED: *HR* HYDROmorphone (PF) 1 MG/ML SYRINGE IVP ONE (09:31)
[2019-07-24] MEDS: Metoprolol XL (24 HR) Succ 25 MG TAB.ER.24H PO SCH (14:33)
[2019-07-24] MEDS: Heparin 25,000 UNIT/250 ML D5W 25,000 UNIT/250 ML IV.SOLN IVC SCH (15:22)
[2019-07-24 16:28] LABS: VBG HCO3 39 mEq/L (21-27); VBG PCO2 83 mmHg (41-51); VBG PH 7.28 pH Units (7.32-7.42); VBG PO2 80 mmHg (25-50)
[2019-07-24] MEDS: ALPRAZolam 0.25 MG TABLET PO SCH (21:00)
[2019-07-25] MEDS: Levalbuterol Neb 0.63 MG/3 ML IH SCH ×4 (00:25→22:32)
[2019-07-25 05:01] LABS: Basophils % 0.1 %; Hematocrit 23.4 % (35.3-44.9); Immature Granulocytes % 0.8 % (0-4); Lymphocytes # 0.7 K/mcL (0.6-4.6); Lymphocytes % 6.3 %; Mean Corpuscular HGB Conc 29.9 g/dL (31.6-35.5); Mean Corpuscular Volume 103.5 fL (83.0-100.0); Mean Platelet Volume 10.6 fL (9.4-12.4); Monocytes # 0.6 K/mcL (0.0-1.3); Monocytes % 5.7 %; Neutrophils # 9.5 K/mcL (1.6-8.9); Platelet Count 163 K/mcL (140-400); Red Blood Count 2.26 M/mcL (3.82-4.97); Red Cell Distribution Width 14.1 % (11.5-14.5); Segmented Neutrophils % 87.1 %; White Blood Count 10.9 K/mcL (4.3-11.1)
[2019-07-25 05:17] LABS: BUN/Creatinine Ratio 41 (6-26); Blood Urea Nitrogen 24 mg/dL (8-23); Calcium 7.9 mg/dL (8.6-10.3); Carbon Dioxide 38 mEq/L (23-29); Chloride 96 mEq/L (98-107); Glucose 135 mg/dL (70-105); Magnesium 1.9 mg/dL (1.6-2.6); Osmolality,Calculated 292 (280-300); Potassium 3.6 mEq/L (3.5-5.1); Sodium 138 mEq/L (136-145); eGFR For African Americans > 60 (> 60); eGFR For Non-African Americans > 60 (> 60)
[2019-07-25] MEDS: Aspirin 81 MG TAB.CHEW PO SCH (08:40)
[2019-07-25] MEDS: Cyanocobalamin (B-12) 1,000 MCG TABLET PO SCH (08:40)
[2019-07-25] MEDS: ALPRAZolam 0.25 MG TABLET PO SCH ×2 (08:40→19:57)
[2019-07-25] MEDS: Metoprolol XL (24 HR) Succ 25 MG TAB.ER.24H PO SCH (08:41)
[2019-07-25] MEDS: Cholecalciferol (D-3) 1,000 UNIT (25MCG) TABLET PO SCH (08:41)
[2019-07-25] MEDS: Piperacillin/Tazobactam 3.375 GM in 0.9 % Sodium Chloride Mini Bag 100 ML IVPB SCH ×3 (08:41→23:39)
[2019-07-25] MEDS: Hydrocortisone Sodium Succ 100 MG/2 ML VIAL IVP SCH ×3 (08:42→23:38)
[2019-07-25] MEDS: Acetaminophen 325 MG TABLET PO PRN (08:54)
[2019-07-25] MEDS ORDERED: Metoprolol XL (24 HR) Succ 25 MG TAB.ER.24H PO SCH (09:00)
[2019-07-25] MEDS ORDERED: Aminoglycoside Consult 1 EACH MC ONE (09:03)
[2019-07-25] MEDS ORDERED: 0.9 % Sodium Chloride 1,000 ML ONE (14:08)
[2019-07-25] MEDS: Heparin 25,000 UNIT/250 ML D5W 25,000 UNIT/250 ML IV.SOLN IVC SCH (15:15)
[2019-07-25] MEDS: D5% in 0.9% NACL 1,000 ML IVC SCH (20:35)
[2019-07-25 21:47] LABS: Hematocrit 27.3 % (35.3-44.9)
[2019-07-25 21:51] LABS: Hemoglobin 8.6 g/dL (11.5-15.4)
[2019-07-26 04:31] LABS: Basophils % 0.1 %; Hematocrit 25.6 % (35.3-44.9); Hemoglobin 8.1 g/dL (11.5-15.4); Immature Granulocytes % 1.3 % (0-4); Lymphocytes # 0.6 K/mcL (0.6-4.6); Lymphocytes % 6.2 %; Mean Corpuscular HGB Conc 31.6 g/dL (31.6-35.5); Mean Corpuscular Hemoglobin 31.9 pg (28.0-33.3); Mean Corpuscular Volume 100.8 fL (83.0-100.0); Mean Platelet Volume 10.7 fL (9.4-12.4); Monocytes # 0.6 K/mcL (0.0-1.3); Neutrophils # 8.1 K/mcL (1.6-8.9); Platelet Count 156 K/mcL (140-400); Red Blood Count 2.54 M/mcL (3.82-4.97); Red Cell Distribution Width 14.9 % (11.5-14.5); Segmented Neutrophils % 86.4 %; White Blood Count 9.4 K/mcL (4.3-11.1)
[2019-07-26 04:50] LABS: BUN/Creatinine Ratio 39 (6-26); Blood Urea Nitrogen 23 mg/dL (8-23); Calcium 7.9 mg/dL (8.6-10.3); Carbon Dioxide 39 mEq/L (23-29); Chloride 97 mEq/L (98-107); Glucose 152 mg/dL (70-105); Osmolality,Calculated 291 (280-300); Potassium 3.7 mEq/L (3.5-5.1); Sodium 137 mEq/L (136-145); eGFR For African Americans > 60 (> 60); eGFR For Non-African Americans > 60 (> 60)
[2019-07-26] MEDS: Hydrocortisone Sodium Succ 100 MG/2 ML VIAL IVP SCH ×2 (07:49→15:07)
[2019-07-26] MEDS: Piperacillin/Tazobactam 3.375 GM in 0.9 % Sodium Chloride Mini Bag 100 ML IVPB SCH (07:52)
[2019-07-26] MEDS: Levalbuterol Neb 0.63 MG/3 ML IH SCH ×3 (08:09→23:40)
[2019-07-26] MEDS: Heparin 25,000 UNIT/250 ML D5W 25,000 UNIT/250 ML IV.SOLN IVC SCH (09:20)
[2019-07-26] MEDS: ALPRAZolam 0.25 MG TABLET PO SCH ×2 (09:25→20:44)
[2019-07-26] MEDS: Cholecalciferol (D-3) 1,000 UNIT (25MCG) TABLET PO SCH (09:25)
[2019-07-26] MEDS: Metoprolol XL (24 HR) Succ 25 MG TAB.ER.24H PO SCH (09:25)
[2019-07-26] MEDS: Cyanocobalamin (B-12) 1,000 MCG TABLET PO SCH (09:25)
[2019-07-26] MEDS: Acetaminophen 325 MG TABLET PO PRN ×2 (09:25→20:47)
[2019-07-26] MEDS: Aspirin 81 MG TAB.CHEW PO SCH (09:26)
[2019-07-27 04:42] LABS: Basophils % 0.4 %; Eosinophils % 0.3 %; Hemoglobin 8.1 g/dL (11.5-15.4); Immature Granulocytes % 2.3 % (0-4); Lymphocytes # 1.5 K/mcL (0.6-4.6); Lymphocytes % 15.9 %; Mean Corpuscular HGB Conc 31.2 g/dL (31.6-35.5); Mean Corpuscular Hemoglobin 32.3 pg (28.0-33.3); Mean Corpuscular Volume 103.6 fL (83.0-100.0); Mean Platelet Volume 10.5 fL (9.4-12.4); Monocytes # 0.9 K/mcL (0.0-1.3); Monocytes % 9.3 %; Nucleated Red Blood Cells 0.3 /100 WBC (0); Platelet Count 170 K/mcL (140-400); Red Blood Count 2.51 M/mcL (3.82-4.97); Red Cell Distribution Width 14.6 % (11.5-14.5); Segmented Neutrophils % 71.8 %; White Blood Count 9.7 K/mcL (4.3-11.1)
[2019-07-27 04:46] LABS: VBG HCO3 46 mEq/L (21-27); VBG PCO2 83 mmHg (41-51); VBG PH 7.35 pH Units (7.32-7.42); VBG PO2 167 mmHg (25-50)
[2019-07-27 05:05] LABS: BUN/Creatinine Ratio 48 (6-26); Blood Urea Nitrogen 24 mg/dL (8-23); Calcium 8.6 mg/dL (8.6-10.3); Carbon Dioxide 42 mEq/L (23-29); Chloride 99 mEq/L (98-107); Glucose 88 mg/dL (70-105); Magnesium 2.2 mg/dL (1.6-2.6); Osmolality,Calculated 297 (280-300); Sodium 142 mEq/L (136-145); eGFR For African Americans > 60 (> 60); eGFR For Non-African Americans > 60 (> 60)
[2019-07-27] MEDS: dexAMETHasone 4 MG TABLET PO SCH ×2 (07:49→20:28)
[2019-07-27] MEDS: Aspirin 81 MG TAB.CHEW PO SCH (07:49)
[2019-07-27] MEDS: Metoprolol XL (24 HR) Succ 25 MG TAB.ER.24H PO SCH (07:50)
[2019-07-27] MEDS: Cholecalciferol (D-3) 1,000 UNIT (25MCG) TABLET PO SCH (07:50)
[2019-07-27] MEDS: Levalbuterol Neb 0.63 MG/3 ML IH SCH ×3 (07:50→22:45)
[2019-07-27] MEDS: Cyanocobalamin (B-12) 1,000 MCG TABLET PO SCH (07:51)
[2019-07-27] MEDS: ALPRAZolam 0.25 MG TABLET PO SCH ×2 (07:51→20:27)
[2019-07-27] MEDS: *HR* LORazepam 0.5 MG TABLET PO PRN (16:37)
[2019-07-27] MEDS: Heparin 25,000 UNIT/250 ML D5W 25,000 UNIT/250 ML IV.SOLN IVC SCH ×2 (18:22→23:27)
[2019-07-28 01:15] LABS: Basophils # 0.1 K/mcL (0.0-0.2); Basophils % 0.6 %; Eosinophils # 0.2 K/mcL (0.0-0.6); Eosinophils % 1.3 %; Hematocrit 26.8 % (35.3-44.9); Hemoglobin 8.2 g/dL (11.5-15.4); Immature Granulocytes % 3.4 % (0-4); Lymphocytes # 1.1 K/mcL (0.6-4.6); Mean Corpuscular HGB Conc 30.6 g/dL (31.6-35.5); Mean Corpuscular Hemoglobin 32.3 pg (28.0-33.3); Mean Corpuscular Volume 105.5 fL (83.0-100.0); Mean Platelet Volume 10.9 fL (9.4-12.4); Monocytes # 0.9 K/mcL (0.0-1.3); Monocytes % 8.1 %; Neutrophils # 8.6 K/mcL (1.6-8.9); Nucleated Red Blood Cells 0.8 /100 WBC (0); Platelet Count 188 K/mcL (140-400); Red Blood Count 2.54 M/mcL (3.82-4.97); Red Cell Distribution Width 14.6 % (11.5-14.5); Segmented Neutrophils % 76.6 %; White Blood Count 11.2 K/mcL (4.3-11.1)
[2019-07-28 01:37] LABS: BUN/Creatinine Ratio 51 (6-26); Blood Urea Nitrogen 22 mg/dL (8-23); Calcium 8.6 mg/dL (8.6-10.3); Carbon Dioxide > 45 mEq/L (23-29); Chloride 97 mEq/L (98-107); Glucose 111 mg/dL (70-105); Magnesium 2.1 mg/dL (1.6-2.6); Osmolality,Calculated 296 (280-300); Potassium 4.6 mEq/L (3.5-5.1); Sodium 141 mEq/L (136-145); eGFR For African Americans > 60 (> 60); eGFR For Non-African Americans > 60 (> 60)
[2019-07-28] MEDS: Levalbuterol Neb 0.63 MG/3 ML IH SCH ×3 (07:29→21:57)
[2019-07-28] MEDS: Metoprolol XL (24 HR) Succ 25 MG TAB.ER.24H PO SCH (08:15)
[2019-07-28] MEDS: Aspirin 81 MG TAB.CHEW PO SCH (08:15)
[2019-07-28] MEDS: Cyanocobalamin (B-12) 1,000 MCG TABLET PO SCH (08:15)
[2019-07-28] MEDS: dexAMETHasone 4 MG TABLET PO SCH ×2 (08:15→19:47)
[2019-07-28] MEDS: ALPRAZolam 0.25 MG TABLET PO SCH ×2 (08:16→19:47)
[2019-07-28] MEDS: Cholecalciferol (D-3) 1,000 UNIT (25MCG) TABLET PO SCH (08:16)
[2019-07-28] MEDS ORDERED: Furosemide 20 MG/2 ML VIAL IVP ONE (12:14)
[2019-07-28] MEDS ORDERED: *HR* Metoprolol 5 MG/5 ML VIAL IVP ONE (12:56)
[2019-07-29 06:22] LABS: Basophils % 0.3 %; Eosinophils % 0.3 %; Hematocrit 27.1 % (35.3-44.9); Hemoglobin 8.1 g/dL (11.5-15.4); Immature Granulocytes % 3.1 % (0-4); Lymphocytes # 1.4 K/mcL (0.6-4.6); Lymphocytes % 11.3 %; Mean Corpuscular HGB Conc 29.9 g/dL (31.6-35.5); Mean Corpuscular Volume 107.1 fL (83.0-100.0); Mean Platelet Volume 10.6 fL (9.4-12.4); Monocytes # 0.8 K/mcL (0.0-1.3); Neutrophils # 9.9 K/mcL (1.6-8.9); Nucleated Red Blood Cells 0.4 /100 WBC (0); Platelet Count 203 K/mcL (140-400); Red Blood Count 2.53 M/mcL (3.82-4.97); Red Cell Distribution Width 14.4 % (11.5-14.5); White Blood Count 12.6 K/mcL (4.3-11.1)
[2019-07-29 06:46] LABS: BUN/Creatinine Ratio 49 (6-26); Blood Urea Nitrogen 21 mg/dL (8-23); Calcium 8.7 mg/dL (8.6-10.3); Carbon Dioxide > 45 mEq/L (23-29); Chloride 91 mEq/L (98-107); Glucose 133 mg/dL (70-105); Osmolality,Calculated 295 (280-300); Potassium 5.1 mEq/L (3.5-5.1); Sodium 140 mEq/L (136-145); eGFR For African Americans > 60 (> 60); eGFR For Non-African Americans > 60 (> 60)
[2019-07-29] MEDS: Levalbuterol Neb 0.63 MG/3 ML IH SCH ×3 (08:08→23:08)
[2019-07-29] MEDS: Metoprolol XL (24 HR) Succ 25 MG TAB.ER.24H PO SCH (08:33)
[2019-07-29] MEDS: Furosemide 40 MG TABLET PO SCH (08:33)
[2019-07-29] MEDS: ALPRAZolam 0.25 MG TABLET PO SCH ×2 (08:33→19:39)
[2019-07-29] MEDS: dexAMETHasone 4 MG TABLET PO SCH ×2 (08:33→19:39)
[2019-07-29] MEDS: Aspirin 81 MG TAB.CHEW PO SCH (08:33)
[2019-07-29] MEDS: Cholecalciferol (D-3) 1,000 UNIT (25MCG) TABLET PO SCH (08:33)
[2019-07-29] MEDS: Cyanocobalamin (B-12) 1,000 MCG TABLET PO SCH (08:34)
[2019-07-29 09:14] LABS: Bilirubin,Urine Negative (Negative); Blood,Urine Negative (Negative); Clarity,Urine Clear (Clear); Color,Urine Yellow (Yellow); Glucose,Urine (UA) 100 mg/dL (Normal); Ketones,Urine Negative (Negative); Leukocyte Esterase,Urine Negative (Negative); Nitrite,Urine Negative (Negative); PH,Urine 7.5 pH Units (5.0-8.0); Protein,Urine Negative (Neg-Trace); Urobilinogen,Urine Normal (Normal)
[2019-07-29] MEDS: *HR* LORazepam 0.5 MG TABLET PO PRN (10:59)
[2019-07-29] MEDS ORDERED: *HR* Warfarin 3 MG TABLET PO SCH (12:15)
[2019-07-29 14:08] LABS: Prothrombin Time 11.9 Seconds (9.4-12.1)
[2019-07-29] MEDS: Warfarin perPT PO SCH (17:40)
[2019-07-29] MEDS ORDERED: Warfarin perPT PO PRN (18:00)
[2019-07-29] MEDS ORDERED: *HR* Warfarin 2 MG TABLET PO ONE (18:00)
[2019-07-30 02:58] LABS: Basophils % 0.3 %; Eosinophils % 0.1 %; Hematocrit 25.3 % (35.3-44.9); Hemoglobin 7.5 g/dL (11.5-15.4); Immature Granulocytes % 2.8 % (0-4); Lymphocytes # 1.1 K/mcL (0.6-4.6); Mean Corpuscular HGB Conc 29.6 g/dL (31.6-35.5); Mean Corpuscular Hemoglobin 31.5 pg (28.0-33.3); Mean Corpuscular Volume 106.3 fL (83.0-100.0); Mean Platelet Volume 10.7 fL (9.4-12.4); Monocytes # 0.6 K/mcL (0.0-1.3); Monocytes % 5.1 %; Neutrophils # 9.8 K/mcL (1.6-8.9); Nucleated Red Blood Cells 0.3 /100 WBC (0); Platelet Count 192 K/mcL (140-400); Red Blood Count 2.38 M/mcL (3.82-4.97); Red Cell Distribution Width 14.5 % (11.5-14.5); Segmented Neutrophils % 82.7 %; White Blood Count 11.9 K/mcL (4.3-11.1)
[2019-07-30 03:02] LABS: Prothrombin Time 11.5 Seconds (9.4-12.1)
[2019-07-30 03:27] LABS: BUN/Creatinine Ratio 42 (6-26); Blood Urea Nitrogen 21 mg/dL (8-23); Calcium 8.8 mg/dL (8.6-10.3); Carbon Dioxide > 45 mEq/L (23-29); Chloride 88 mEq/L (98-107); Glucose 114 mg/dL (70-105); Osmolality,Calculated 288 (280-300); Potassium 5.3 mEq/L (3.5-5.1); Sodium 137 mEq/L (136-145); eGFR For African Americans > 60 (> 60); eGFR For Non-African Americans > 60 (> 60)
[2019-07-30] MEDS: Levalbuterol Neb 0.63 MG/3 ML IH SCH ×4 (06:01→20:20)
[2019-07-30] MEDS: Cyanocobalamin (B-12) 1,000 MCG TABLET PO SCH (10:03)
[2019-07-30] MEDS: Cholecalciferol (D-3) 1,000 UNIT (25MCG) TABLET PO SCH (10:04)
[2019-07-30] MEDS: dexAMETHasone 4 MG TABLET PO SCH ×2 (10:04→20:01)
[2019-07-30] MEDS: Metoprolol XL (24 HR) Succ 25 MG TAB.ER.24H PO SCH (10:04)
[2019-07-30] MEDS: Furosemide 40 MG TABLET PO SCH (10:05)
[2019-07-30] MEDS: Aspirin 81 MG TAB.CHEW PO SCH (10:05)
[2019-07-30] MEDS: ALPRAZolam 0.25 MG TABLET PO SCH ×2 (10:05→20:01)
[2019-07-30] MEDS ORDERED: *HR* Warfarin 2 MG TABLET PO ONE (18:00)
[2019-07-30] MEDS: Warfarin perPT PO SCH (18:00)
[2019-07-31 01:54] LABS: Basophils % 0.3 %; Eosinophils % 0.2 %; Hematocrit 26.5 % (35.3-44.9); Immature Granulocytes % 3.5 % (0-4); Lymphocytes # 0.9 K/mcL (0.6-4.6); Lymphocytes % 6.9 %; Mean Corpuscular HGB Conc 30.2 g/dL (31.6-35.5); Mean Corpuscular Hemoglobin 32.3 pg (28.0-33.3); Mean Corpuscular Volume 106.9 fL (83.0-100.0); Monocytes # 0.7 K/mcL (0.0-1.3); Monocytes % 5.1 %; Nucleated Red Blood Cells 0.3 /100 WBC (0); Platelet Count 199 K/mcL (140-400); Red Blood Count 2.48 M/mcL (3.82-4.97); Red Cell Distribution Width 14.5 % (11.5-14.5)
[2019-07-31 01:58] LABS: INR 1.1; Prothrombin Time 12.4 Seconds (9.4-12.1)
[2019-07-31 02:20] LABS: BUN/Creatinine Ratio 54 (6-26); Blood Urea Nitrogen 25 mg/dL (8-23); Carbon Dioxide > 45 mEq/L (23-29); Chloride 85 mEq/L (98-107); Glucose 124 mg/dL (70-105); Osmolality,Calculated 284 (280-300); Potassium 5.2 mEq/L (3.5-5.1); Sodium 134 mEq/L (136-145); eGFR For African Americans > 60 (> 60); eGFR For Non-African Americans > 60 (> 60)
[2019-07-31] MEDS: Levalbuterol Neb 0.63 MG/3 ML IH SCH ×3 (06:19→21:57)
[2019-07-31] MEDS: Cholecalciferol (D-3) 1,000 UNIT (25MCG) TABLET PO SCH (09:15)
[2019-07-31] MEDS: Metoprolol XL (24 HR) Succ 25 MG TAB.ER.24H PO SCH (09:15)
[2019-07-31] MEDS: ALPRAZolam 0.25 MG TABLET PO SCH ×2 (09:15→20:02)
[2019-07-31] MEDS: Cyanocobalamin (B-12) 1,000 MCG TABLET PO SCH (09:15)
[2019-07-31] MEDS: dexAMETHasone 4 MG TABLET PO SCH ×2 (09:15→20:02)
[2019-07-31] MEDS: Furosemide 40 MG TABLET PO SCH (09:15)
[2019-07-31] MEDS: Aspirin 81 MG TAB.CHEW PO SCH (09:16)
[2019-07-31] MEDS: Warfarin perPT PO SCH (17:58)
[2019-07-31] MEDS ORDERED: *HR* Warfarin 2 MG TABLET PO ONE (18:00)
[2019-08-01 05:52] LABS: Basophils # 0.1 K/mcL (0.0-0.2); Basophils % 0.4 %; Eosinophils % 0.3 %; Hematocrit 25.8 % (35.3-44.9); Hemoglobin 7.7 g/dL (11.5-15.4); Immature Granulocytes % 2.9 % (0-4); Lymphocytes # 0.8 K/mcL (0.6-4.6); Lymphocytes % 6.1 %; Mean Corpuscular HGB Conc 29.8 g/dL (31.6-35.5); Mean Corpuscular Hemoglobin 32.1 pg (28.0-33.3); Mean Corpuscular Volume 107.5 fL (83.0-100.0); Mean Platelet Volume 10.8 fL (9.4-12.4); Monocytes # 0.7 K/mcL (0.0-1.3); Monocytes % 5.5 %; Neutrophils # 10.7 K/mcL (1.6-8.9); Nucleated Red Blood Cells 0.2 /100 WBC (0); Platelet Count 220 K/mcL (140-400); Red Cell Distribution Width 15.2 % (11.5-14.5); Segmented Neutrophils % 84.8 %; White Blood Count 12.6 K/mcL (4.3-11.1)
[2019-08-01 05:56] LABS: INR 1.3; Prothrombin Time 15.2 Seconds (9.4-12.1)
[2019-08-01 06:17] LABS: BUN/Creatinine Ratio 57 (6-26); Blood Urea Nitrogen 25 mg/dL (8-23); Calcium 9.2 mg/dL (8.6-10.3); Carbon Dioxide > 45 mEq/L (23-29); Chloride 84 mEq/L (98-107); Glucose 126 mg/dL (70-105); Osmolality,Calculated 292 (280-300); Potassium 4.6 mEq/L (3.5-5.1); Sodium 138 mEq/L (136-145); eGFR For African Americans > 60 (> 60); eGFR For Non-African Americans > 60 (> 60)
[2019-08-01] MEDS: Levalbuterol Neb 0.63 MG/3 ML IH SCH (07:34)
[2019-08-01] MEDS: ALPRAZolam 0.25 MG TABLET PO SCH (08:15)
[2019-08-01] MEDS: Metoprolol XL (24 HR) Succ 25 MG TAB.ER.24H PO SCH (08:15)
[2019-08-01] MEDS: Cholecalciferol (D-3) 1,000 UNIT (25MCG) TABLET PO SCH (08:15)
[2019-08-01] MEDS: Furosemide 40 MG TABLET PO SCH (08:15)
[2019-08-01] MEDS: Aspirin 81 MG TAB.CHEW PO SCH (08:15)
[2019-08-01] MEDS: Cyanocobalamin (B-12) 1,000 MCG TABLET PO SCH (08:15)
[2019-08-01] MEDS: dexAMETHasone 4 MG TABLET PO SCH (08:16)
[2019-08-01 11:14] VITALS: BP 115/67
[2019-08-01] MEDS: Acetaminophen 325 MG TABLET PO PRN (13:42)
[2019-08-01] MEDS ORDERED: *HR* Warfarin 2 MG TABLET PO ONE (18:00)
== END 2019-08-01 16:01 | DRG 480 ==
LOC: EMEROOARM 12:48 → 3NENU 12:48 → SUATTDRO 14:16 → 3NENU 15:51 → ICNU 07-22 20:25 → 3NENU 07-24 01:54
PROVIDERS: ADMIT Pharmacist; ATTEND Internal Medicine

== ENCOUNTER 2019-08-02 13:50 | Inpatient (IN) ==
[2019-08-02 15:24] LABS: Basophils % 0.2 %; Eosinophils # 0.1 K/mcL (0.0-0.6); Eosinophils % 0.8 %; Hematocrit 29.8 % (35.3-44.9); Hemoglobin 8.7 g/dL (11.5-15.4); Immature Granulocytes % 1.5 % (0-4); Lymphocytes # 0.7 K/mcL (0.6-4.6); Lymphocytes % 4.9 %; Mean Corpuscular HGB Conc 29.2 g/dL (31.6-35.5); Mean Corpuscular Hemoglobin 32.8 pg (28.0-33.3); Mean Corpuscular Volume 112.5 fL (83.0-100.0); Mean Platelet Volume 10.6 fL (9.4-12.4); Monocytes # 1.3 K/mcL (0.0-1.3); Monocytes % 9.5 %; Neutrophils # 11.1 K/mcL (1.6-8.9); Nucleated Red Blood Cells 0.5 /100 WBC (0); Platelet Count 268 K/mcL (140-400); Red Blood Count 2.65 M/mcL (3.82-4.97); Red Cell Distribution Width 15.9 % (11.5-14.5); Segmented Neutrophils % 83.1 %; White Blood Count 13.4 K/mcL (4.3-11.1)
[2019-08-02 15:43] LABS: Anisocytosis 1+ (Not Present); Platelet Estimate Normal (Normal)
[2019-08-02 15:45] LABS: Stomatocytes 1+ (Not Present)
[2019-08-02 15:53] LABS: BUN/Creatinine Ratio 51 (6-26); Blood Urea Nitrogen 28 mg/dL (8-23); Calcium 9.1 mg/dL (8.6-10.3); Carbon Dioxide > 45 mEq/L (23-29); Chloride 87 mEq/L (98-107); Glucose 131 mg/dL (70-105); Osmolality,Calculated 301 (280-300); Potassium 4.9 mEq/L (3.5-5.1); Sodium 142 mEq/L (136-145); Troponin I 0.03 ng/mL (< 0.04); eGFR For African Americans > 60 (> 60); eGFR For Non-African Americans > 60 (> 60)
[2019-08-02] MEDS ORDERED: Isovue-370 500 ML BOTTLE IVP ONE (15:55)
[2019-08-02 16:10] LABS: ABG Base Excess 27 mEq/L (-2 to 3); ABG HCO3 59 mEq/L (21-27); ABG Oxygen Saturation 98 % (95-98); ABG PCO2 119 mmHg (35-45); ABG PO2 119 mmHg (85-104); ABG TCO2 > 50 mEq/L (20-26)
[2019-08-02] MEDS ORDERED: Ondansetron 4 MG/2 ML VIAL IVP PRN (21:09)
[2019-08-02] MEDS ORDERED: Naloxone 0.4 MG/ML INJ IVP PRN (21:09)
[2019-08-02] MEDS ORDERED: Azithromycin 250 MG TABLET PO SCH (21:15)
[2019-08-02] MEDS ORDERED: Acetaminophen 325 MG TABLET PO PRN (23:13)
[2019-08-02] MEDS: Azithromycin 500 MG in 0.9 % Sodium Chloride 250 ML IVPB SCH (23:44)
[2019-08-02] MEDS: methylPREDNISolone 125 MG/2 ML VIAL IVP SCH (23:44)
[2019-08-03 02:45] LABS: ABG Base Excess 28 mEq/L (-2 to 3); ABG HCO3 57 mEq/L (21-27); ABG Oxygen Saturation 88 % (95-98); ABG PCO2 89 mmHg (35-45); ABG PH 7.42 pH Units (7.32-7.45); ABG PO2 60 mmHg (85-104); ABG TCO2 > 50 mEq/L (20-26)
[2019-08-03 03:17] LABS: Basophils % 0.2 %; Eosinophils % 0.1 %; Hematocrit 29.4 % (35.3-44.9); Hemoglobin 8.8 g/dL (11.5-15.4); Lymphocytes # 0.4 K/mcL (0.6-4.6); Lymphocytes % 2.7 %; Mean Corpuscular HGB Conc 29.9 g/dL (31.6-35.5); Mean Corpuscular Hemoglobin 32.8 pg (28.0-33.3); Mean Corpuscular Volume 109.7 fL (83.0-100.0); Mean Platelet Volume 10.5 fL (9.4-12.4); Monocytes # 0.6 K/mcL (0.0-1.3); Monocytes % 3.5 %; Neutrophils # 14.6 K/mcL (1.6-8.9); Nucleated Red Blood Cells 0.3 /100 WBC (0); Platelet Count 256 K/mcL (140-400); Red Blood Count 2.68 M/mcL (3.82-4.97); Red Cell Distribution Width 16.3 % (11.5-14.5); Segmented Neutrophils % 92.5 %; White Blood Count 15.8 K/mcL (4.3-11.1)
[2019-08-03 03:47] LABS: BUN/Creatinine Ratio 62 (6-26); Blood Urea Nitrogen 29 mg/dL (8-23); Carbon Dioxide 45 mEq/L (23-29); Chloride 88 mEq/L (98-107); Glucose 116 mg/dL (70-105); Magnesium 2.2 mg/dL (1.6-2.6); Osmolality,Calculated 297 (280-300); Potassium 4.7 mEq/L (3.5-5.1); Sodium 140 mEq/L (136-145); Troponin I < 0.03 ng/mL (< 0.04); eGFR For African Americans > 60 (> 60); eGFR For Non-African Americans > 60 (> 60)
[2019-08-03 05:04] LABS: Phosphorous 3.4 mg/dL (2.7-4.5)
[2019-08-03 05:25] LABS: INR 2.5; Prothrombin Time 28.7 Seconds (9.4-12.1)
[2019-08-03] MEDS: methylPREDNISolone 125 MG/2 ML VIAL IVP SCH ×4 (06:21→23:48)
[2019-08-03] MEDS: Budesonide/Formoterol 160/4.5 1 PUFF INH IH SCH ×2 (08:28→21:23)
[2019-08-03] MEDS: Tiotropium 18 MCG inhalation IH SCH (08:39)
[2019-08-03] MEDS ORDERED: Furosemide 40 MG/4 ML VIAL IVP SCH (09:00)
[2019-08-03] MEDS: Metoprolol XL (24 HR) Succ 25 MG TAB.ER.24H PO SCH (17:11)
[2019-08-03] MEDS ORDERED: Warfarin perPT PO PRN (18:00)
[2019-08-03] MEDS ORDERED: *HR* Warfarin 2 MG TABLET PO ONE (18:00)
[2019-08-03] MEDS: ALPRAZolam 0.25 MG TABLET PO SCH (20:54)
[2019-08-03] MEDS: Azithromycin 500 MG in 0.9 % Sodium Chloride 250 ML IVPB SCH (23:47)
[2019-08-04] MEDS: methylPREDNISolone 125 MG/2 ML VIAL IVP SCH ×4 (05:14→23:15)
[2019-08-04 06:03] LABS: Hematocrit 25.2 % (35.3-44.9); Hemoglobin 7.7 g/dL (11.5-15.4); Mean Corpuscular HGB Conc 30.6 g/dL (31.6-35.5); Mean Corpuscular Hemoglobin 32.9 pg (28.0-33.3); Mean Corpuscular Volume 107.7 fL (83.0-100.0); Mean Platelet Volume 10.8 fL (9.4-12.4); Platelet Count 277 K/mcL (140-400); Red Blood Count 2.34 M/mcL (3.82-4.97); Red Cell Distribution Width 16.4 % (11.5-14.5)
[2019-08-04 06:08] LABS: INR 2.8; Prothrombin Time 31.7 Seconds (9.4-12.1)
[2019-08-04 06:52] LABS: BUN/Creatinine Ratio 80 (6-26); Blood Urea Nitrogen 36 mg/dL (8-23); Calcium 8.7 mg/dL (8.6-10.3); Carbon Dioxide > 45 mEq/L (23-29); Chloride 89 mEq/L (98-107); Glucose 88 mg/dL (70-105); Osmolality,Calculated 298 (280-300); Potassium 3.5 mEq/L (3.5-5.1); Sodium 140 mEq/L (136-145); eGFR For African Americans > 60 (> 60); eGFR For Non-African Americans > 60 (> 60)
[2019-08-04] MEDS: Budesonide/Formoterol 160/4.5 1 PUFF INH IH SCH ×2 (08:24→21:14)
[2019-08-04] MEDS: Tiotropium 18 MCG inhalation IH SCH (08:24)
[2019-08-04] MEDS: ALPRAZolam 0.25 MG TABLET PO SCH ×2 (09:57→20:04)
[2019-08-04] MEDS: Metoprolol XL (24 HR) Succ 25 MG TAB.ER.24H PO SCH (09:57)
[2019-08-04] MEDS: Aspirin Enteric Coated 81 MG Tablet PO SCH (09:57)
[2019-08-04 10:49] LABS: VBG HCO3 44 mEq/L (21-27); VBG PCO2 92 mmHg (41-51); VBG PH 7.29 pH Units (7.32-7.42); VBG PO2 90 mmHg (25-50)
[2019-08-04] MEDS: Furosemide 80 MG in 0.9 % Sodium Chloride 50 ML IV SCH ×2 (13:06→20:03)
[2019-08-04] MEDS ORDERED: *HR* Warfarin 1 MG TABLET PO ONE (18:00)
[2019-08-04] MEDS: Azithromycin 250 MG TABLET PO SCH (20:04)
[2019-08-04] MEDS ORDERED: QUEtiapine Fumarate 25 MG TABLET PO SCH (21:00)
[2019-08-05 01:52] LABS: INR 5.1; Prothrombin Time 57.8 Seconds (9.4-12.1)
[2019-08-05 02:06] LABS: BUN/Creatinine Ratio 100 (6-26); Blood Urea Nitrogen 50 mg/dL (8-23); Calcium 7.9 mg/dL (8.6-10.3); Carbon Dioxide 43 mEq/L (23-29); Chloride 89 mEq/L (98-107); Glucose 147 mg/dL (70-105); Magnesium 2.1 mg/dL (1.6-2.6); Osmolality,Calculated 300 (280-300); Potassium 3.2 mEq/L (3.5-5.1); Sodium 137 mEq/L (136-145); eGFR For African Americans > 60 (> 60); eGFR For Non-African Americans > 60 (> 60)
[2019-08-05 02:13] LABS: VBG HCO3 43 mEq/L (21-27); VBG PCO2 44 mmHg (41-51); VBG PO2 197 mmHg (25-50)
[2019-08-05 02:40] LABS: ABG Base Excess 18 mEq/L (-2 to 3); ABG HCO3 46 mEq/L (21-27); ABG Oxygen Saturation 96 % (95-98); ABG PCO2 77 mmHg (35-45); ABG PH 7.39 pH Units (7.32-7.45); ABG PO2 89 mmHg (85-104); ABG TCO2 49 mEq/L (20-26)
[2019-08-05] MEDS: methylPREDNISolone 125 MG/2 ML VIAL IVP SCH ×2 (05:15→11:55)
[2019-08-05] MEDS: Metoprolol XL (24 HR) Succ 25 MG TAB.ER.24H PO SCH (08:12)
[2019-08-05] MEDS: Aspirin Enteric Coated 81 MG Tablet PO SCH (08:12)
[2019-08-05] MEDS: ALPRAZolam 0.25 MG TABLET PO SCH ×2 (08:12→22:59)
[2019-08-05] MEDS: Budesonide/Formoterol 160/4.5 1 PUFF INH IH SCH ×2 (08:54→21:43)
[2019-08-05] MEDS: Tiotropium 18 MCG inhalation IH SCH (08:55)
[2019-08-05] MEDS ORDERED: Furosemide 80 MG in 0.9 % Sodium Chloride 50 ML IV ONE (12:00)
[2019-08-05] MEDS: Azithromycin 250 MG TABLET PO SCH (22:59)
[2019-08-05] MEDS: QUEtiapine Fumarate 25 MG TABLET PO SCH (23:00)
[2019-08-06 02:34] LABS: Eosinophils % 0.1 %; Hematocrit 25.6 % (35.3-44.9); Hemoglobin 7.7 g/dL (11.5-15.4); Immature Granulocytes % 0.6 % (0-4); Lymphocytes % 9.8 %; Mean Corpuscular HGB Conc 30.1 g/dL (31.6-35.5); Mean Corpuscular Hemoglobin 32.1 pg (28.0-33.3); Mean Corpuscular Volume 106.7 fL (83.0-100.0); Mean Platelet Volume 10.8 fL (9.4-12.4); Monocytes # 0.9 K/mcL (0.0-1.3); Monocytes % 8.9 %; Nucleated Red Blood Cells 0.2 /100 WBC (0); Platelet Count 292 K/mcL (140-400); Red Cell Distribution Width 16.1 % (11.5-14.5); Segmented Neutrophils % 80.6 %; White Blood Count 9.9 K/mcL (4.3-11.1)
[2019-08-06 02:55] LABS: BUN/Creatinine Ratio 91 (6-26); Blood Urea Nitrogen 49 mg/dL (8-23); Carbon Dioxide 41 mEq/L (23-29); Chloride 92 mEq/L (98-107); Glucose 102 mg/dL (70-105); Magnesium 2.1 mg/dL (1.6-2.6); Osmolality,Calculated 289 (280-300); Potassium 4.3 mEq/L (3.5-5.1); Sodium 133 mEq/L (136-145); eGFR For African Americans > 60 (> 60); eGFR For Non-African Americans > 60 (> 60)
[2019-08-06 02:56] LABS: INR 7.3; Prothrombin Time 83.7 Seconds (9.4-12.1)
[2019-08-06 08:10] LABS: VBG HCO3 40 mEq/L (21-27); VBG PCO2 64 mmHg (41-51); VBG PH 7.41 pH Units (7.32-7.42); VBG PO2 221 mmHg (25-50)
[2019-08-06] MEDS: Metoprolol XL (24 HR) Succ 25 MG TAB.ER.24H PO SCH (08:34)
[2019-08-06] MEDS: Aspirin Enteric Coated 81 MG Tablet PO SCH (08:34)
[2019-08-06] MEDS: ALPRAZolam 0.25 MG TABLET PO SCH ×2 (08:35→20:50)
[2019-08-06] MEDS: predniSONE 20 MG TABLET PO SCH (08:35)
[2019-08-06] MEDS: Budesonide/Formoterol 160/4.5 1 PUFF INH IH SCH ×2 (09:22→22:21)
[2019-08-06] MEDS: Tiotropium 18 MCG inhalation IH SCH (09:23)
[2019-08-06] MEDS: Furosemide 80 MG in 0.9 % Sodium Chloride 50 ML IV SCH ×2 (12:30→20:51)
[2019-08-06] MEDS: Azithromycin 250 MG TABLET PO SCH (20:50)
[2019-08-06] MEDS: QUEtiapine Fumarate 25 MG TABLET PO SCH (20:51)
[2019-08-07 02:27] LABS: INR 2.3; Prothrombin Time 26.1 Seconds (9.4-12.1)
[2019-08-07 02:28] LABS: VBG HCO3 43 mEq/L (21-27); VBG PCO2 83 mmHg (41-51); VBG PH 7.33 pH Units (7.32-7.42); VBG PO2 188 mmHg (25-50)
[2019-08-07 02:51] LABS: BUN/Creatinine Ratio 63 (6-26); Blood Urea Nitrogen 33 mg/dL (8-23); Calcium 8.1 mg/dL (8.6-10.3); Carbon Dioxide 41 mEq/L (23-29); Chloride 93 mEq/L (98-107); Glucose 80 mg/dL (70-105); Magnesium 2.2 mg/dL (1.6-2.6); Osmolality,Calculated 290 (280-300); Potassium 3.7 mEq/L (3.5-5.1); Sodium 137 mEq/L (136-145); eGFR For African Americans > 60 (> 60); eGFR For Non-African Americans > 60 (> 60)
[2019-08-07] MEDS: Furosemide 80 MG in 0.9 % Sodium Chloride 50 ML IV SCH ×2 (08:38→19:55)
[2019-08-07] MEDS: ALPRAZolam 0.25 MG TABLET PO SCH ×2 (08:39→19:54)
[2019-08-07] MEDS: Metoprolol XL (24 HR) Succ 25 MG TAB.ER.24H PO SCH (08:42)
[2019-08-07] MEDS: Aspirin Enteric Coated 81 MG Tablet PO SCH (08:42)
[2019-08-07] MEDS: predniSONE 20 MG TABLET PO SCH (08:43)
[2019-08-07] MEDS: Budesonide/Formoterol 160/4.5 1 PUFF INH IH SCH ×2 (10:16→20:31)
[2019-08-07] MEDS: Tiotropium 18 MCG inhalation IH SCH (10:17)
[2019-08-07] MEDS ORDERED: *HR* Warfarin 1 MG TABLET PO ONE (18:00)
[2019-08-07] MEDS: Azithromycin 250 MG TABLET PO SCH (19:55)
[2019-08-07] MEDS: QUEtiapine Fumarate 25 MG TABLET PO SCH (19:55)
[2019-08-08 02:39] LABS: Basophils % 0.1 %; Eosinophils # 0.1 K/mcL (0.0-0.6); Eosinophils % 0.7 %; Hematocrit 26.3 % (35.3-44.9); Hemoglobin 8.1 g/dL (11.5-15.4); Immature Granulocytes % 0.5 % (0-4); Lymphocytes # 1.6 K/mcL (0.6-4.6); Lymphocytes % 14.3 %; Mean Corpuscular HGB Conc 30.8 g/dL (31.6-35.5); Mean Corpuscular Hemoglobin 32.7 pg (28.0-33.3); Mean Platelet Volume 10.5 fL (9.4-12.4); Monocytes # 0.6 K/mcL (0.0-1.3); Monocytes % 5.5 %; Neutrophils # 8.8 K/mcL (1.6-8.9); Platelet Count 259 K/mcL (140-400); Red Blood Count 2.48 M/mcL (3.82-4.97); Red Cell Distribution Width 16.2 % (11.5-14.5); Segmented Neutrophils % 78.9 %; White Blood Count 11.2 K/mcL (4.3-11.1)
[2019-08-08 02:44] LABS: INR 1.7
[2019-08-08 02:59] LABS: BUN/Creatinine Ratio 55 (6-26); Blood Urea Nitrogen 17 mg/dL (8-23); Calcium 7.9 mg/dL (8.6-10.3); Carbon Dioxide 38 mEq/L (23-29); Chloride 94 mEq/L (98-107); Glucose 87 mg/dL (70-105); Osmolality,Calculated 281 (280-300); Potassium 3.8 mEq/L (3.5-5.1); Sodium 135 mEq/L (136-145); eGFR For African Americans > 60 (> 60); eGFR For Non-African Americans > 60 (> 60)
[2019-08-08] MEDS: Aspirin Enteric Coated 81 MG Tablet PO SCH (07:29)
[2019-08-08] MEDS: ALPRAZolam 0.25 MG TABLET PO SCH (07:29)
[2019-08-08] MEDS: Metoprolol XL (24 HR) Succ 25 MG TAB.ER.24H PO SCH (07:29)
[2019-08-08] MEDS: predniSONE 20 MG TABLET PO SCH (07:29)
[2019-08-08] MEDS: Furosemide 80 MG in 0.9 % Sodium Chloride 50 ML IV SCH (07:29)
[2019-08-08 07:54] VITALS: BP 119/74
[2019-08-08] MEDS ORDERED: *HR* Warfarin 1 MG TABLET PO ONE (18:00)
== END 2019-08-08 11:22 | DRG 291 ==
LOC: 2NENU 13:50 → EMEROOARM 13:50 → 2NENU 19:44 → SUATTDRO 08-03 12:18 → 2ANU 08-04 21:40
PROVIDERS: ADMIT Internal Medicine; ATTEND Internal Medicine